=== PATIENT | female | born 1955 | race Caucasian/White ===

== ENCOUNTER 2017-07-20 19:08 | Inpatient (IN) | payer OTHER ==
[~2017-07-20] VITALS: Ht 165.1 cm; Wt 102.1 kg
--- NOTE | 2017-07-20 19:40 | EMERGENCY ROOM VISIT NOTE ---
History Report prepared by Lex: Medardo Rodriguez Under the Supervision of: Dr. Mal Vance M.D. First contact with patient: 19:19 Chief Complaint: ILLNESS Stated Complaint: POSSIBLE PHEUMONIA History of Present Illness The patient is a 62 year old white female with a past medical history of a knee replacement and regional dystrophy who presents to the ED with a cc of a worsening cough beginning three days ago. Pt was evaluated at [facility] earlier today and told she had pneumonia, per a chest x-ray. She received a breathing treatment but had to stop before it was over because she developed palpitations. Positive subjective fever, chills, palpitations. Negative being checked for flu, recorded fevers, taking blood thinners, and a history of smoking. Pt takes OxyContin, oxycodone, and gabapentin. [place] that causes palpitations and a cough. Source of History: patient Onset: three days ago Position: other (respiratory) Quality: other (cough) Timing: worsening Associated Symptoms: + fevers (subjective), + chills Note: Associated symptoms: palpitations Denies: reported fevers Review of Systems See HPI for pertinent positives and negatives. A total of ten systems were reviewed and were otherwise negative. Past Medical & Surgical Medical Problems: (1) Sepsis Family History Patient reports no known family medical history. Social History Smoking Status: Former Smoker Marital Status: Housing Status: lives with significant other Occupation Status: retired Current/Historical Medications Scheduled Aspirin (Aspirin Ec), 81 MG PO QAM Gabapentin (Neurontin), 300 MG PO BID Gabapentin (Gabapentin), 600 MG PO HS Oxycodone Hcl (Oxycontin), 60 MG PO TID Scheduled PRN Oxycodone Hcl (Oxycontin), 20 MG PO Q4 PRN for Pain Allergies Coded Allergies: Aminophylline (Verified Allergy, Unknown, hives, 07/20/17) per patient report Physical Exam Vital Signs Date Time Temp Pulse Resp B/P (MAP) Pulse Ox O2 Delivery O2 Flow Rate FiO2 07/20/17 21:34 138 20 108/42 94 Room Air 07/20/17 21:21 138 20 96/66 96 Room Air 07/20/17 21:15 147 24 113/64 94 Room Air 07/20/17 21:12 139 111/78 07/20/17 21:05 149 24 111/78 95 Room Air 07/20/17 21:01 160 118/66 07/20/17 21:00 140 20 111/65 96 Room Air 07/20/17 20:52 168 22 118/66 96 Room Air 07/20/17 20:49 167 24 90/72 95 Room Air 07/20/17 20:12 161 20 109/61 97 Room Air 07/20/17 19:44 169 07/20/17 19:40 93 Room Air 07/20/17 19:14 36.3 86 19 113/63 98 Room Air Physical Exam GENERAL: Awake, alert, well-appearing, NAD. Obese. HENT: Normocephalic, atraumatic. EYES: Normal conjunctiva. Sclera non-icteric. NECK: Supple. No nuchal rigidity. FROM. RESPIRATORY: Diffuse rhonchi throughout. NO wheezing, crackles CARDIAC: Tachy and irregular, no MRG ABDOMEN: Soft, NTND, BS+ MSK: No chest wall TTP, no LE edema NEURO: GCS 15, CN 2-12 intact, moves all 4s on command SKIN: No rash or jaundice noted. Medical Decision & Procedures ER Provider Diagnostic Interpretation: Radiology results as stated below per my review and radiologist interpretation: CHEST ONE VIEW PORTABLE HISTORY: 62 years-old Female EVALUATE RESPIRATORY DISTRESS.DYSPNEA acute respiratory distress with dyspnea COMPARISON: None available TECHNIQUE: Portable AP view of the chest FINDINGS: Patient is slightly rotated to the right. Cardiac silhouette is moderately enlarged. There is no pneumothorax, pleural effusion, focal airspace consolidation or overt pulmonary edema. Bones of the chest appear to be grossly intact. Degenerative changes are noted about the shoulders and spine. IMPRESSION: 1. No acute process of the chest. 2. Cardiomegaly without overt pulmonary edema. The above report was generated using voice recognition software. It may contain grammatical, syntax or spelling errors. Electronically signed by: Clemente Krueger M.D. 07/20/2017 8:12 PM Dictated Date/Time: 07/20/2017 8:11 PM Bedside Ultrasound per my interpretation: No pericardial effusion. IVC with mild respiratory collapsibility. Laboratory Results 07/20/17 19:50 Red Blood Count 5.07, Mean Corpuscular Volume 82.1, Mean Corpuscular Hemoglobin 27.2, Mean Corpuscular Hemoglobin Concent 33.2, Mean Platelet Volume 10.6, Neutrophils (%) (Auto) 71.5, Lymphocytes (%) (Auto) 14.0, Monocytes (%) (Auto) 14.3, Eosinophils (%) (Auto) 0.0, Basophils (%) (Auto) 0.0, Neutrophils # (Auto ) 2.91, Lymphocytes # (Auto) 0.57, Monocytes # (Auto) 0.58, Eosinophils # (Auto ) 0.00, Basophils # (Auto) 0.00 07/20/17 19:50 Test 07/20/17 19:50 07/20/17 20:40 07/20/17 21:35 White Blood Count 4.07 K/uL (4.8-10.8) Red Blood Count 5.07 M/uL (4.2-5.4) Hemoglobin 13.8 g/dL (12.0-16.0) Hematocrit 41.6 % (37-47) Mean Corpuscular Volume 82.1 fL (80-100) Mean Corpuscular Hemoglobin 27.2 pg (25-34) Mean Corpuscular Hemoglobin Concent 33.2 g/dl (32-36) Platelet Count 181 K/uL (130-400) Mean Platelet Volume 10.6 fL (7.4-10.4) Neutrophils (%) (Auto) 71.5 % Lymphocytes (%) (Auto) 14.0 % Monocytes (%) (Auto) 14.3 % Eosinophils (%) (Auto) 0.0 % Basophils (%) (Auto) 0.0 % Neutrophils # (Auto) 2.91 K/uL (1.4-6.5) Lymphocytes # (Auto) 0.57 K/uL (1.2-3.4) Monocytes # (Auto) 0.58 K/uL (0.11-0.59) Eosinophils # (Auto) 0.00 K/uL (0-0.5) Basophils # (Auto) 0.00 K/uL (0-0.2) RDW Standard Deviation 46.2 fL (36.4-46.3) RDW Coefficient of Variation 15.4 % (11.5-14.5) Immature Granulocyte % (Auto) 0.2 % Immature Granulocyte # (Auto) 0.01 K/uL (0.00-0.02) Prothrombin Time 10.3 SECONDS (9.0-12.0) Prothromb Time International Ratio 1.0 (0.9-1.1) Activated Partial Thromboplast Time 26.4 SECONDS (21.0-31.0) Partial Thromboplastin Ratio 1.0 Anion Gap 11.0 mmol/L (3-11) Est Creatinine Clear Calc Drug Dose 69.4 ml/min Estimated GFR () 71.5 Estimated GFR (Non- 61.7 BUN/Creatinine Ratio 12.5 (10-20) Calcium Level 8.8 mg/dl (8.5-10.1) Magnesium Level 2.0 mg/dl (1.8-2.4) Total Bilirubin 0.3 mg/dl (0.2-1) Aspartate Amino Transf (AST/SGOT) 23 U/L (15-37) Alanine Aminotransferase (ALT/SGPT) 20 U/L (12-78) Alkaline Phosphatase 78 U/L (45-117) Troponin I 0.142 ng/ml (0-0.045) Pro-B-Type Natriuretic Peptide 1235 pg/ml (0-900) Total Protein 7.4 gm/dl (6.4-8.2) Albumin 3.5 gm/dl (3.4-5.0) Globulin 3.9 gm/dl (2.5-4.0) Albumin/Globulin Ratio 0.9 (0.9-2) Procalcitonin < 0.05 ng/ml (0-0.5) Thyroid Stimulating Hormone (TSH) 3.680 uIu/ml (0.300-4.500) Urine Color DK YELLOW Urine Appearance TURBID (CLEAR) Urine pH 5.5 (4.5-7.5) Urine Specific Mentcle 1.015 (1.000-1.030) Urine Protein 2+ (NEG) Urine Glucose (UA) NEG (NEG) Urine Ketones 1+ (NEG) Urine Occult Blood TRACE (NEG) Urine Nitrite POS (NEG) Urine Bilirubin NEG (NEG) Urine Urobilinogen NEG (NEG) Urine Leukocyte Esterase SMALL (NEG) Urine WBC (Auto) 10-30 /hpf (0-5) Urine RBC (Auto) 5-10 /hpf (0-4) Urine Hyaline Casts (Auto) 5-10 /lpf (0-5) Urine Epithelial Cells (Auto) >30 /lpf (0-5) Urine Bacteria (Auto) 4+ (NEG) Urine Pathogenic Casts /lpf (0) Influenza Type A (RT-PCR) POS for Influ A (NEG) Influenza Type B (RT-PCR) Neg for Influ B (NEG) Laboratory results reviewed by me Medications Administered Medications (Trade) Dose Ordered Sig/Mercedes Route Start Time Stop Time Status Last Admin Dose Admin Ceftriaxone Sodium (Rocephin Inj) 1 gm NOW STAT IV 07/20/17 19:41 07/20/17 19:42 DC 07/20/17 20:10 1 GM Azithromycin (Zithromax Tab) 500 mg NOW ONCE PO 07/20/17 19:45 07/20/17 19:46 DC 07/20/17 20:11 500 MG Sodium Chloride 500 ml @ 999 mls/hr Q31M STAT IV 07/20/17 19:41 07/20/17 20:11 DC 07/20/17 20:11 999 MLS/HR Magnesium Oxide (Mag-Ox Tab) 800 mg ONE STAT PO 07/20/17 20:28 07/20/17 20:31 DC 07/20/17 20:50 800 MG Metoprolol Tartrate (Lopressor Iv) 5 mg NOW STAT IV 07/20/17 20:40 07/20/17 20:42 DC 07/20/17 21:01 5 MG Aspirin (Aspirin Chew) 324 mg NOW STAT PO 07/20/17 20:40 07/20/17 20:42 DC 07/20/17 20:50 324 MG Potassium Chloride (Klor-Con M10) 40 meq STK-MED ONCE .ROUTE 07/20/17 20:47 07/20/17 20:48 DC 07/20/17 20:50 40 MEQ Metoprolol Tartrate (Lopressor Iv) 5 mg NOW STAT IV 07/20/17 21:07 07/20/17 21:09 DC 07/20/17 21:12 5 MG Procedure Indication: tachycardia with HTN Written consent was obtained after the risks and benefits were explained, including but not limited to pain, thermal burn, allergic reaction, aspiration, airway obstruction, laryngospasm, infection, hypotension, and cardiorespiratory arrest. At this time, the risks of the procedure are less than the risks of NOT performing the procedure. A time out was taken and the correct patient and procedure identified. The patient was on 100% via NRB and end tidal CO2 monitoring prior to the procedure. Suction, airway equipment, medications, respiratory equipment, ACLS cart, and appropriate personnel were prepared prior to the initiation of the procedure. Sedation was achieved utilizing 15mg of etomidate. The biphasic defibrillator was set to 200 joules of energy and synched. After confirmation of sedation and "all clear" safety check the synchronized shock was delivered. This resulted in successful conversion of the dysrhythmia back into sinus rhythm. See nursing notes for dosages and times. There were no complications and the patient recovered uneventfully from the procedure. ECG Per My Interpretation Indication: SOB/dyspnea Rate (beats per minute): 193 Rhythm: atrial fibrillation (with RVR) Findings: other (Normal QRS, slight anterior depression noted. Normal axis.) ED Course 1930: The patient was evaluated in room C04. A complete history and physical exam was performed. 2056: Upon reexamination, the patient was resting comfortably. I performed a bedside ultrasound. Please refer to the diagnostic interpretations for findings. I discussed the test results and treatment plan with her. The patient will be evaluated for further management. 2109: I [facility] the [facility]'s [facility] will [facility] the patient for further management and care. 2141: The lead case manager informed me the patient was going [place] [facility] [place], but she has not been evaluated by them yet. The admission switched to the [facility] Hospitalist. 2154: I discussed the patient's case with Dr. Garrison, [facility] Hospitalist. The patient will be evaluated for further management and care. 2237: I discussed with Dr. Garrison again. We are going to try further treatment options. 2247: The patient is not responding to current treatment. She will be cardioverted. 2308: The patient was sedated and cardioverted. Please refer to the procedure note for further information. Medical Decision The patient is a 62 year old white female with a past medical history of a knee replacement and regional dystrophy who presents to the ED with a cc of a worsening cough beginning three days ago. Differential diagnosis: Etiologies such as infections, reactive airway disease, pneumonia, pneumothorax , COPD, CHF, cardiac ischemia, pulmonary embolism, musculoskeletal, gastrointestinal, as well as others were entertained. Patient was seen and evaluated the bedside. Patient presents after being seen at [facility] with concern for possible pneumonia. Patient of note did state that she did have some productive sputum as well as a cough. Patient on exam does have diffuse coarse breath sounds throughout. Patient is also tacky and regular. Patient does not look volume overloaded. Patient did have blood work completed, EKG, troponin, BNP, chest x-ray. Patient's chest x-ray shows cardiomegaly but without volume overload. Patient's BNP mildly elevated. Patient does have a positive troponin. Patient denies any true chest pains. This is likely rate related from her irregular rhythm. Patient did have mild hypokalemia so she was repleted with potassium and magnesium. EKG appears to be irregularly irregular likely in A. fib. Patient was given 3 doses of Lopressor as well as 1500 fluids. Patient did have a flu swab which was positive. I did discuss the patient with the hospitalist who did attempt to put her on a Cardizem drip. Patient's blood pressure has been fairly soft. The patient was moved to B1. 6 mg of adenosine was tried without improvement in her tachycardia. The decision was made to perform synchronized cardioversion. This was considered emergent as the patient did have low blood pressures. Patient was sedated with etomidate. Patient did have a subsequent 200 J biphasic shock delivered. The patient return to his sinus rhythm. The patient suffered no complication. The patient became awake and alert. The patient was feeling improved. Of note patient was heparinized prior to procedure. Patient was admitted to medicine. Medication Reconcilliation Current Medication List: was personally reviewed by me Blood Pressure Screening Patient's blood pressure: Normal blood pressure Blood pressure disposition: Did not require urgent referral Consults Time Called: 2105 Consulting Physician: Diego Zuniga Hospitalist Returned Call: 2109 I discussed the patient's case with Diego Zuniga Hospitalist. He will evaluate the patient for further management and care. Additional Consults: Time Called: 2141 Consulted Physician: Dr. Garrison [facility] Hospitalist Returned Call: 2154 Additional Comments: I discussed the patient's case with Dr. Garrison [facility] Hospitalist. The patient will be evaluated for further management and care. Impression Primary Impression: Atrial fibrillation with RVR Additional Impressions: Encounter for cardioversion procedure Hypokalemia Critical Care I have personally spent greater than 75 minutes of critical care time in the direct management of this patient. This includes bedside care, interpretation of diagnostic studies, and testing, discussion with consultants, patient, and family members, and other required patient management activities. This 75 minutes is in excess of all separately billable procedures. Scribe Attestation The scribe's documentation has been prepared under my direction and personally reviewed by me in its entirety. I confirm that the note above accurately reflects all work, treatment, procedures, and medical decision making performed by me. Departure Information Dispostion Being Evaluated By Hospitalist Referrals No Doctor, Assigned (PCP) Patient Instructions My [facility] Problem Qualifiers
[2017-07-20] MEDS ORDERED: SODIUM CHLORIDE 0.9% 500ML 500 ML IV STA (19:41)
[2017-07-20] MEDS ORDERED: CEFTRIAXONE SOD INJ 1 GM ADDVIAL IV STA (19:41)
[2017-07-20] MEDS ORDERED: AZITHROMYCIN 250 MG TAB PO ONE (19:45)
[2017-07-20 20:03] LABS: HEMATOCRIT 41.6 % (37-47); HEMOGLOBIN 13.8 g/dL (12.0-16.0); IG# 0.01 K/uL (0.00-0.02); LYMPH ABS # 0.57 K/uL (1.2-3.4); MEAN CELL VOLUME 82.1 fL (80-100); MEAN CORPUSCULAR HEMOGLOBIN 27.2 pg (25-34); MEAN CORPUSCULAR HGB CONC 33.2 g/dl (32-36); MEAN PLATELET VOLUME 10.6 fL (7.4-10.4); MONO % 14.3 %; MONO ABS # 0.58 K/uL (0.11-0.59); NEUT % 71.5 %; NEUT ABS # 2.91 K/uL (1.4-6.5); PLATELET COUNT 181 K/uL (130-400); RED CELL DISTRIBUTION WIDTH CV 15.4 % (11.5-14.5); RED CELL DISTRIBUTION WIDTH SD 46.2 fL (36.4-46.3); WHITE BLOOD COUNT 4.07 K/uL (4.8-10.8)
[2017-07-20 20:14] LABS: PTT PATIENT 26.4 SECONDS (21.0-31.0)
--- NOTE | 2017-07-20 20:14 | DIAGNOSTIC IMAGING REPORT ---
CHEST ONE VIEW PORTABLE HISTORY: 62 years-old Female EVALUATE RESPIRATORY DISTRESS.DYSPNEA acute respiratory distress with dyspnea COMPARISON: None available TECHNIQUE: Portable AP view of the chest FINDINGS: Patient is slightly rotated to the right. Cardiac silhouette is moderately enlarged. There is no pneumothorax, pleural effusion, focal airspace consolidation or overt pulmonary edema. Bones of the chest appear to be grossly intact. Degenerative changes are noted about the shoulders and spine. IMPRESSION: 1. No acute process of the chest. 2. Cardiomegaly without overt pulmonary edema. The above report was generated using voice recognition software. It may contain grammatical, syntax or spelling errors. Electronically signed by: Clemente Krueger M.D. 07/20/2017 8:12 PM Dictated Date/Time: 07/20/2017 8:11 PM
[2017-07-20 20:21] LABS: ALBUMIN 3.5 gm/dl (3.4-5.0); CALCIUM 8.8 mg/dl (8.5-10.1); CREATININE 0.97 mg/dl (0.60-1.20); POTASSIUM 3.3 mmol/L (3.5-5.1)
[2017-07-20 20:28] LABS: TOTAL PROTEIN 7.4 gm/dl (6.4-8.2)
[2017-07-20] MEDS ORDERED: MAGNESIUM OXIDE 400 MG TAB PO STA (20:28)
[2017-07-20] MEDS ORDERED: POTASSIUM CHLORIDE 20 MEQ TABCR PO STA (20:28)
[2017-07-20] MEDS ORDERED: ASPIRIN 324 MG CHEW PO STA (20:40)
[2017-07-20] MEDS ORDERED: METOPROLOL TARTRATE 1 MG/ML VIAL IV STA ×2 (20:40→21:07)
[2017-07-20] MEDS ORDERED: POTASSIUM CHLORIDE 10 MEQ TABCR ONE (20:47)
[2017-07-20] MEDS ORDERED: OXYC60TA8 PO (21:20)
[2017-07-20] MEDS ORDERED: OXYC20TA50 PO (21:21)
[2017-07-20] MEDS ORDERED: NRN300 PO (21:21)
[2017-07-20] MEDS ORDERED: ASPI81TA28 PO (21:21)
[2017-07-20] MEDS ORDERED: GABA-113 PO (21:21)
[2017-07-20] MEDS ORDERED: NSS + 20MEQ KCL 1000ML 1,000 ML IV STA (21:23)
[2017-07-20] MEDS ORDERED: DILTIAZEM BOLUS / DRIP IV STA (21:48)
[2017-07-20] MEDS ORDERED: MoRPHine SULFATE 2 MG/ML CARP IV PRN (22:00)
[2017-07-20] MEDS ORDERED: ACETAMINOPHEN 325 MG TAB PO PRN (22:00)
[2017-07-20] MEDS ORDERED: ZOLPIDEM TARTRATE 5 MG TAB PO PRN (22:00)
[2017-07-20] MEDS ORDERED: MAGNESIUM HYDROXIDE SUSP 30 ML UDC PO PRN (22:00)
[2017-07-20] MEDS ORDERED: MAGNESIUM SULFATE 1GM / D5W 1 GM in PREMIXED IN D5W 100 ML IV SCH (22:00)
[2017-07-20] MEDS ORDERED: POLYETHYLENE (MIRALAX) 17 GM PACK PO PRN (22:00)
[2017-07-20] MEDS ORDERED: ALUMINUM/MAGNESIUM/SIMETH (MAALOX MAX) 30 ML UDC PO PRN (22:00)
[2017-07-20] MEDS ORDERED: ONDANSETRON INJ 2 MG/ML 2 ML VIAL IV PRN (22:00)
[2017-07-20] MEDS ORDERED: DILTIAZEM HCL INJ 125 MG in DEXTROSE 5% 100ML IV PRN (22:15)
[2017-07-20 22:31] LABS: INFLUENZA B PCR Neg for Influ B (NEG)
[2017-07-20] MEDS ORDERED: HEPARIN 25000 UNIT/500 ML D5W ONE (22:31)
[2017-07-20] MEDS ORDERED: HEPARIN SOD 5000 UNIT/0.5 ML CARP ONE (22:31)
[2017-07-20] MEDS ORDERED: MAGNESIUM SULFATE 1GM / D5W 1 GM BAG ONE (22:31)
[2017-07-20 22:34] LABS: INFLUENZA A PCR POS for Influ A (NEG)
[2017-07-20] MEDS ORDERED: SODIUM CHLORIDE 0.9% 500ML 500 ML IV SCH (22:45)
[2017-07-20] MEDS ORDERED: ADENOSINE IV SOLN 3 MG/ML 2 ML VIAL IV STA (22:46)
[2017-07-20] MEDS ORDERED: ADENOSINE IV SOLN 3 MG/ML 2 ML VIAL ONE (22:50)
[2017-07-20] MEDS ORDERED: ETOMIDATE 2 MG/ML 20 ML VIAL IV ONE (22:57)
[2017-07-20] MEDS ORDERED: OPTIRAY 320 IV PRN (23:00)
[2017-07-20 23:08] VITALS: BP 137/82; PULSE 54; O2SAT 100; O2SAT 96
--- NOTE | 2017-07-20 23:13 | History and Physical ---
History & Physical Date & Time of Service: Jul 20, 2017 at 22:25 Chief Complaint: Possible [place] Primary Care Physician: No Doctor, Assigned History of Present Illness Source: patient 62 y/o F Hx AF, SVT, complex regional pain syndrome. The pt has had a productive cough for 3 days and presented to an urgent care center. She was told she may have a pneumonia and was provided with an Albuterol neb treatment. [place] through the treatment she developed palpitations. She was subsequently sent to the ER. On arrival her HR was in the 170s. An EKG revealed an indeterminate tachyarrhythmia. She received 3 doses of IV Metoprolol which slowed her heart rate minimally. She then developed hypotension although she was largely asymptomatic throughout. A dose of adenosine was provided which did not effect her rhythm. As she remained tachycardic and intermittently hypotensive, cardioversion was indicated. She received sedation followed by 200j which and converted to a sinus rhythm at a rate of 60. She remained stable following cardioversion. In the interim labs returned revealing a (+) influenza and a marginally elevated troponin. She denies CP and her SOB has been mild. The pt states that she had a similar episode while living in [place] a few years ago. she converted to a sinus rhythm spontaneously at the time. She states she has palpitations occasionally and attributes them to fracking activity taking place near her house. Past Medical/Surgical History 1) Atrial fib and SVTs 2) Complex regional pain syndrome following L TKA Surgical L TKA Family History Patient reports no known family medical history. Noncontributory Social History Does not smoke - occasional beer Smoking Status: Former Smoker Marital Status: Occupational Status: retired Allergies Coded Allergies: Aminophylline (Verified Allergy, Unknown, hives, 07/20/17) per patient report Home Medications Scheduled Aspirin (Aspirin Ec), 81 MG PO QAM Gabapentin (Neurontin), 300 MG PO BID Gabapentin (Gabapentin), 600 MG PO HS Oxycodone Hcl (Oxycontin), 60 MG PO TID Scheduled PRN Oxycodone Hcl (Oxycontin), 20 MG PO Q4 PRN for Pain Review of Systems Constitutional: + weakness, No fever, No chills, No sweats Eyes: No worsening of vision ENT: No hearing loss, No unusual epistaxis, No nasal symptoms Respiratory: + cough, + sputum, + shortness of breath Cardiovascular: + palpitations, No chest pain, No orthopnea Abdomen: No pain, No nausea, No vomiting Musculoskeletal: No joint pain Genitourinary - Female: No dysuria, No urinary frequency, No urinary urgency Neurologic: No memory loss, No paralysis, No weakness Psychiatric: No depression symptoms Endocrine: No fatigue Hematologic / Lymphatic: No abnormal bleeding/bruising Integumentary: No rash Allergic / Immunologic: No environmental allergies Physical Exam Vital Signs Date Time Temp Pulse Resp B/P (MAP) Pulse Ox O2 Delivery O2 Flow Rate FiO2 07/20/17 21:34 138 20 108/42 94 Room Air 07/20/17 21:21 138 20 96/66 96 Room Air 07/20/17 21:15 147 24 113/64 94 Room Air 07/20/17 21:12 139 111/78 07/20/17 21:05 149 24 111/78 95 Room Air 07/20/17 21:01 160 118/66 07/20/17 21:00 140 20 111/65 96 Room Air 07/20/17 20:52 168 22 118/66 96 Room Air 07/20/17 20:49 167 24 90/72 95 Room Air 07/20/17 20:12 161 20 109/61 97 Room Air 07/20/17 19:44 169 07/20/17 19:40 93 Room Air 07/20/17 19:14 36.3 86 19 113/63 98 Room Air General Appearance: WD/WN, no apparent distress, + pertinent finding (Pleasant , overweight, middle-aged female - no distress) Head: normocephalic Eyes: normal inspection ENT: normal ENT inspection, pharynx normal Neck: supple, no JVD Respiratory/Chest: chest non-tender, lungs clear, normal breath sounds, + pertinent finding (coughing during exam ) Cardiovascular: no JVD, + tachycardia, + irregularly irregular Abdomen/GI: normal bowel sounds, non tender, soft Back: normal inspection, no CVA tenderness Extremities/Musculoskelatal: normal inspection, no calf tenderness, normal capillary refill 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/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 as tested, no motor/sensory deficits, alert, oriented x 3 Skin: normal color Diagnostics Laboratory Results Results Past 24 Hours Test 07/20/17 19:50 07/20/17 20:40 07/20/17 21:35 Range/Units White Blood Count 4.07 4.8-10.8 K/uL Red Blood Count 5.07 4.2-5.4 M/uL Hemoglobin 13.8 12.0-16.0 g/dL Hematocrit 41.6 37-47 % Mean Corpuscular Volume 82.1 80-100 fL Mean Corpuscular Hemoglobin 27.2 25-34 pg Mean Corpuscular Hemoglobin Concent 33.2 32-36 g/dl Platelet Count 181 130-400 K/uL Mean Platelet Volume 10.6 7.4-10.4 fL Neutrophils (%) (Auto) 71.5 % Lymphocytes (%) (Auto) 14.0 % Monocytes (%) (Auto) 14.3 % Eosinophils (%) (Auto) 0.0 % Basophils (%) (Auto) 0.0 % Neutrophils # (Auto) 2.91 1.4-6.5 K/uL Lymphocytes # (Auto) 0.57 1.2-3.4 K/uL Monocytes # (Auto) 0.58 0.11-0.59 K/uL Eosinophils # (Auto) 0.00 0-0.5 K/uL Basophils # (Auto) 0.00 0-0.2 K/uL RDW Standard Deviation 46.2 36.4-46.3 fL RDW Coefficient of Variation 15.4 11.5-14.5 % Immature Granulocyte % (Auto) 0.2 % Immature Granulocyte # (Auto) 0.01 0.00-0.02 K/uL Prothrombin Time 10.3 9.0-12.0 SECONDS Prothromb Time International Ratio 1.0 0.9-1.1 Activated Partial Thromboplast Time 26.4 21.0-31.0 SECONDS Partial Thromboplastin Ratio 1.0 Sodium Level 139 136-145 mmol/L Potassium Level 3.3 3.5-5.1 mmol/L Chloride Level 104 98-107 mmol/L Carbon Dioxide Level 24 21-32 mmol/L Anion Gap 11.0 3-11 mmol/L Blood Urea Nitrogen 12 7-18 mg/dl Creatinine 0.97 0.60-1.20 mg/dl Est Creatinine Clear Calc Drug Dose 69.4 ml/min Estimated GFR () 71.5 Estimated GFR (Non- 61.7 BUN/Creatinine Ratio 12.5 10-20 Random Glucose 114 70-99 mg/dl Calcium Level 8.8 8.5-10.1 mg/dl Magnesium Level 2.0 1.8-2.4 mg/dl Total Bilirubin 0.3 0.2-1 mg/dl Aspartate Amino Transf (AST/SGOT) 23 15-37 U/L Alanine Aminotransferase (ALT/SGPT) 20 12-78 U/L Alkaline Phosphatase 78 45-117 U/L Troponin I 0.142 0-0.045 ng/ml Pro-B-Type Natriuretic Peptide 1235 0-900 pg/ml Total Protein 7.4 6.4-8.2 gm/dl Albumin 3.5 3.4-5.0 gm/dl Globulin 3.9 2.5-4.0 gm/dl Albumin/Globulin Ratio 0.9 0.9-2 Procalcitonin < 0.05 0-0.5 ng/ml Thyroid Stimulating Hormone (TSH) 3.680 0.300-4.500 uIu/ml Urine Color DK YELLOW Urine Appearance TURBID CLEAR Urine pH 5.5 4.5-7.5 Urine Specific [place] 1.015 1.000-1.030 Urine Protein 2+ NEG Urine Glucose (UA) NEG NEG Urine Ketones 1+ NEG Urine Occult Blood TRACE NEG Urine Nitrite POS NEG Urine Bilirubin NEG NEG Urine Urobilinogen NEG NEG Urine Leukocyte Esterase SMALL NEG Urine WBC (Auto) 10-30 0-5 /hpf Urine RBC (Auto) 5-10 0-4 /hpf Urine Hyaline Casts (Auto) 5-10 0-5 /lpf Urine Epithelial Cells (Auto) >30 0-5 /lpf Urine Bacteria (Auto) 4+ NEG Urine Pathogenic Casts 0 /lpf Microbiology Results 07/20/17 Urine Culture, Received Pending Diagnostic Radiology CXR is clear EKG A flutter vs SVT - rate 170 Impression Assessment and Plan 62 y/o F Hx AF, SVT, complex regional pain syndrome. The pt has had a productive cough for 3 days and presented to an urgent care center. She was told she may have a pneumonia and was provided with an Albuterol neb treatment. [place] through the treatment she developed palpitations. She was subsequently sent to the ER. On arrival her HR was in the 170s. An EKG revealed an indeterminate tachyarrhythmia. She received 3 doses of IV Metoprolol which slowed her heart rate minimally. She then developed hypotension although she was largely asymptomatic throughout. A dose of adenosine was provided which did not effect her rhythm. As she remained tachycardic and intermittently hypotensive, cardioversion was indicated. She received sedation followed by 200j which and converted to a sinus rhythm at a rate of 60. She remained stable following cardioversion. In the interim labs returned revealing a (+) influenza and a marginally elevated troponin. 1) Tachyarrhythmia - most likely A flutter - converted to a sinus rhythm - she is placed on full dose Heparin. An echo and cardiology consult are pending. She technically has a low STEFFI score and has indicated that she does not want to take anticoagulants going forward regardless. 2) Elevated trop - no CP - likely related to high HR and resultant demand mismatch - trop will be trended - she is anticoagualted and an echo is pending to assess for WMAs 3) Influenza - placed on isolation - Tamiflu provided. 4) A CXR does not show any infiltrates - due to her persistent flutter and cough she will be sent for a CTA to assess for PE or PNM. 5) Complex regional pain syndrome - will remain on RENATA and her prescribed narcotic dose. 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
[2017-07-21] VITALS (8 sets, daily range): BP systolic 103–138; BP diastolic 51–69; PULSE 58–78; TEMP 36.5–37.2; O2SAT 94–98; Ht 165.1 cm; Wt 102.1 kg
[2017-07-21] MEDS: D5NSS + 20MEQ KCL 1,000 ML IV SCH ×2 (02:21→12:01)
[2017-07-21 05:57] LABS: PTT PATIENT 57.4 SECONDS (21.0-31.0)
--- NOTE | 2017-07-21 07:10 | DIAGNOSTIC IMAGING REPORT ---
(CHEST FOR PE) ANGIO WITH CLINICAL HISTORY: 62 years-old Female presenting with Rule out pe, possible pneumonia. TECHNIQUE: Multidetector CT angiography of the chest was performed after administration of intravenous contrast. 3-D volumetric and/or maximum intensity projection (MIP) images were subsequently reconstructed for review. IV contrast: 103 mL of Optiray 320. A dose lowering technique was used consistent with the principles of ALARA (as low as reasonably achievable). COMPARISON: Chest x-ray performed the previous day. CT DOSE (mGy.cm): The estimated cumulative dose is 687.81 mGy.cm. FINDINGS: Steel Sash Erector topogram: Unremarkable. Pulmonary vasculature: The study is suboptimal for the assessment of the pulmonary vascular tree secondary to respiratory motion artifact. Allowing for limited image quality, no central filling defect to suggest pulmonary embolus. Main pulmonary artery enlarged measuring nearly 3.5 cm in transverse dimension. No flattening of the interventricular septum. No intracardiac filling defect. Reflux of contrast into the intrahepatic IVC. Remaining chest: On soft tissue windows, normal thyroid and thoracic inlet. Few small hilar lymph nodes suggested bilaterally. Atherosclerosis of the aorta. Mild multichamber enlargement of the heart. Trace aortic valve calcification. No pericardial or pleural effusion. Mild esophageal wall thickening in the distal portion, although this may be postsurgical change given the presence of extensive surgical material at the gastroesophageal junction. This may represent postsurgical changes of Celestino procedure. On lung windows, minimal patchy groundglass opacity in all 5 lobes. Extensive bronchial wall thickening with multifocal segmental and subsegmental bronchial debris. There is also debris in the bronchus intermedius and trachea. Solid 4 mm nodule in the right middle lobe (series 4 image 91). Solid 3 mm nodule immediately superior in the right middle lobe (series 4 image 104). Solid subpleural 3 mm nodule in the posterior lateral right lower lobe (series 4 image 112). On bone windows, degenerative changes of the spine. Multiple anchors noted in the right humeral head. IMPRESSION: 1. Allowing for suboptimal image quality, no evidence of pulmonary embolus. 2. Patchy groundglass opacity could relate to multifocal bronchial wall thickening and bronchial debris. This could be seen in the setting of aspiration with aspiration pneumonitis or bronchitis with patchy air trapping. Correlate clinically. 3. Multiple solid pulmonary nodules measuring up to 4 mm. Follow-up per Tommy Society 2017 recommendations below. Please refer to below summary of Fleischner Society 2017 recommendations for follow-up of incidental CT nodules (H Eusebia et al. Guidelines for management of incidental pulmonary nodules detected on CT images: From the Fleischner Society 2017. Radiology 2017; 284: 228-243.) SOLID NODULES Single nodule; size < 6 mm * Low risk patients: No routine follow-up * High risk patients: Optional CT at 12 months Single nodule; size 6-8 mm * Low risk patients: CT at 6-12 months, then consider CT at 18-24 months * High risk patients: CT at 6-12 months, then at 18-24 months Single nodule; size > 8 mm * Either low or high risk patients: Considered CT at 3 months, PET/CT, or tissue sampling Multiple nodules; size < 6 mm * Low risk patients: No routine follow up * High risk patients: Optional CT at 12 months Multiple nodules; size 6-8 mm * Low risk patients: CT at 3-6 months, then consider CT at 18-24 months * High risk patients: CT at 3-6 months, then at 18-24 months Multiple nodules; size > 8 mm * Low risk patients: CT at 3-6 months, then consider at 18-24 months * High risk patients: CT at 3-6 months, then at 18-24 months Note: These guidelines apply to incidental nodules. These guidelines do not apply to patients younger than 35 years, immunocompromised patients, or patients with cancer. * Low risk patients: Minimal or absent history of smoking and/or other known risk factors * High risk patients: History of smoking, exposure to other carcinogens, emphysema, fibrosis, upper lobe location, family history of lung cancer, etc. * If a nodule up to 8 mm is partly solid or is ground glass, further follow-up is required after 24 months to exclude possible slow growing adenocarcinoma. SUBSOLID NODULES Single ground-glass nodule * Nodule size < 6 mm: No routine follow-up * Nodule size > or = 6 mm: CT at 6-12 months to confirm persistence, then CT every 2 years until 5 years Single part-solid nodule * Nodule size < 6 mm: No routine follow-up * Nodules size > or = 6 mm: CT at 3-6 months to confirm persistence. If unchanged and solid component remains < 6 mm, annual CT should be performed for 5 years Multiple nodules * Nodule size < 6 mm: CT at 3-6 months. If stable, consider CT at 2 and 4 years. * Nodules size > or = 6 mm: CT at 3-6 months. Subsequent management based on the most suspicious nodule(s) Electronically signed by: Norm Hyde M.D. 07/21/2017 7:09 AM Dictated Date/Time: 07/21/2017 6:58 AM
[2017-07-21] MEDS: OXYCODONE HCL 20 MG TABCR (OXYCONTIN) PO SCH ×3 (08:05→20:33)
[2017-07-21] MEDS: ASPIRIN 81 MG ECTAB PO SCH (08:05)
[2017-07-21] MEDS: GABAPENTIN 300 MG CAP PO SCH ×3 (08:05→20:34)
[2017-07-21] MEDS: OSELTAMIVIR PHOSPHATE 75 MG CAP PO SCH ×2 (08:05→20:34)
--- NOTE | 2017-07-21 08:26 | Family Medicine Progress Note ---
Progress Note Date of Service Jul 21, 2017. Subjective Pt evaluation today including: conversation w/ patient, physical exam, chart review, lab review, review of studies, conversation w/ senior sustainability consultant, review of inpatient medication list Patient feeling better since cardioversion in ED yesterday. She denies any acute overnight event. She is breathing comfortably on room air, and has been ambulating to the bathroom without dyspnea. She continues to have coughing fits and she is unable to expectorate. She otherwise denies fevers/chills, headaches , CP, palpitations, abdominal pain, lower extremity swelling or rashes. She has been tolerating diet without nausea or vomiting, and voiding and stooling appropriately. ROS is unremarkable except as noted above. Objective Vital Signs Date Time Temp Pulse Resp B/P (MAP) Pulse Ox O2 Delivery O2 Flow Rate FiO2 07/21/17 05:42 36.6 59 18 96 Room Air 07/21/17 05:38 103/57 (72) 07/21/17 04:00 Room Air 07/21/17 00:54 37.2 61 117/51 97 Nasal Cannula 2.0 07/21/17 00:27 61 15 100 07/21/17 00:26 86/65 07/21/17 00:22 63 21 116/57 96 07/21/17 00:17 59 14 115/68 97 07/21/17 00:12 61 18 94 07/21/17 00:11 123/68 07/21/17 00:07 62 15 107/62 97 07/21/17 00:02 61 18 93 07/21/17 00:01 111/65 07/20/17 23:57 65 19 117/65 93 07/20/17 23:52 65 22 109/41 95 07/20/17 23:47 63 18 93 07/20/17 23:42 115/59 07/20/17 23:40 62 16 97 07/20/17 23:37 117/62 07/20/17 23:35 63 19 98 07/20/17 23:32 118/65 07/20/17 23:30 61 23 98 07/20/17 23:27 119/52 07/20/17 23:25 60 16 99 07/20/17 23:21 119/54 07/20/17 23:20 60 14 99 3/2/18 23:17 108/65 07/20/17 23:15 60 24 100 07/20/17 23:12 139/76 07/20/17 23:10 55 22 100 07/20/17 23:08 54 20 137/82 96 Room Air 07/20/17 23:08 137/82 07/20/17 23:07 137/66 07/20/17 23:05 97 10 100 07/20/17 23:02 129/72 07/20/17 23:00 97 11 100 07/20/17 22:40 161 22 102/64 95 Room Air 07/20/17 22:31 129 22 92/52 95 Room Air 07/20/17 22:15 143 20 76/56 96 Room Air 07/20/17 22:09 147 16 84/52 96 Room Air 07/20/17 21:34 138 20 108/42 94 Room Air 07/20/17 21:21 138 20 96/66 96 Room Air 07/20/17 21:15 147 24 113/64 94 Room Air 07/20/17 21:12 139 111/78 07/20/17 21:05 149 24 111/78 95 Room Air 07/20/17 21:01 160 118/66 07/20/17 21:00 140 20 111/65 96 Room Air 07/20/17 20:52 168 22 118/66 96 Room Air 07/20/17 20:49 167 24 90/72 95 Room Air 07/20/17 20:12 161 20 109/61 97 Room Air 07/20/17 19:44 169 07/20/17 19:40 93 Room Air 07/20/17 19:14 36.3 86 19 113/63 98 Room Air Physical Exam General Appearance: WD/WN, no apparent distress Eyes: normal inspection ENT: hearing grossly normal Neck: supple, no adenopathy Respiratory/Chest: no accessory muscle use, + crackles, + rales, + wheezing Cardiovascular: regular rate, rhythm, no edema, no murmur Abdomen: normal bowel sounds, non tender, soft Extremities: no pedal edema, no calf tenderness Neurologic/Psychiatric: alert, normal mood/affect, oriented x 3 Skin: normal color, warm/dry, no rash Laboratory Results Results Past 24 Hours Test 07/20/17 19:50 07/20/17 20:40 07/20/17 21:35 07/21/17 05:28 Range/Units White Blood Count 4.07 4.8-10.8 K/uL Red Blood Count 5.07 4.2-5.4 M/uL Hemoglobin 13.8 12.0-16.0 g/dL Hematocrit 41.6 37-47 % Mean Corpuscular Volume 82.1 80-100 fL Mean Corpuscular Hemoglobin 27.2 25-34 pg Mean Corpuscular Hemoglobin Concent 33.2 32-36 g/dl Platelet Count 181 130-400 K/uL Mean Platelet Volume 10.6 7.4-10.4 fL Neutrophils (%) (Auto) 71.5 % Lymphocytes (%) (Auto) 14.0 % Monocytes (%) (Auto) 14.3 % Eosinophils (%) (Auto) 0.0 % Basophils (%) (Auto) 0.0 % Neutrophils # (Auto) 2.91 1.4-6.5 K/uL Lymphocytes # (Auto) 0.57 1.2-3.4 K/uL Monocytes # (Auto) 0.58 0.11-0.59 K/uL Eosinophils # (Auto) 0.00 0-0.5 K/uL Basophils # (Auto) 0.00 0-0.2 K/uL RDW Standard Deviation 46.2 36.4-46.3 fL RDW Coefficient of Variation 15.4 11.5-14.5 % Immature Granulocyte % (Auto) 0.2 % Immature Granulocyte # (Auto) 0.01 0.00-0.02 K/uL Prothrombin Time 10.3 9.0-12.0 SECONDS Prothromb Time International Ratio 1.0 0.9-1.1 Activated Partial Thromboplast Time 26.4 57.4 21.0-31.0 SECONDS Partial Thromboplastin Ratio 1.0 2.2 Sodium Level 139 136-145 mmol/L Potassium Level 3.3 3.5-5.1 mmol/L Chloride Level 104 98-107 mmol/L Carbon Dioxide Level 24 21-32 mmol/L Anion Gap 11.0 3-11 mmol/L Blood Urea Nitrogen 12 7-18 mg/dl Creatinine 0.97 0.60-1.20 mg/dl Est Creatinine Clear Calc Drug Dose 69.4 ml/min Estimated GFR () 71.5 Estimated GFR (Non- 61.7 BUN/Creatinine Ratio 12.5 10-20 Random Glucose 114 70-99 mg/dl Calcium Level 8.8 8.5-10.1 mg/dl Magnesium Level 2.0 1.8-2.4 mg/dl Total Bilirubin 0.3 0.2-1 mg/dl Aspartate Amino Transf (AST/SGOT) 23 15-37 U/L Alanine Aminotransferase (ALT/SGPT) 20 12-78 U/L Alkaline Phosphatase 78 45-117 U/L Troponin I 0.142 0-0.045 ng/ml Pro-B-Type Natriuretic Peptide 1235 0-900 pg/ml Total Protein 7.4 6.4-8.2 gm/dl Albumin 3.5 3.4-5.0 gm/dl Globulin 3.9 2.5-4.0 gm/dl Albumin/Globulin Ratio 0.9 0.9-2 Procalcitonin < 0.05 0-0.5 ng/ml Thyroid Stimulating Hormone (TSH) 3.680 0.300-4.500 uIu/ml Urine Color DK YELLOW Urine Appearance TURBID CLEAR Urine pH 5.5 4.5-7.5 Urine Specific [place] 1.015 1.000-1.030 Urine Protein 2+ NEG Urine Glucose (UA) NEG NEG Urine Ketones 1+ NEG Urine Occult Blood TRACE NEG Urine Nitrite POS NEG Urine Bilirubin NEG NEG Urine Urobilinogen NEG NEG Urine Leukocyte Esterase SMALL NEG Urine WBC (Auto) 10-30 0-5 /hpf Urine RBC (Auto) 5-10 0-4 /hpf Urine Hyaline Casts (Auto) 5-10 0-5 /lpf Urine Epithelial Cells (Auto) >30 0-5 /lpf Urine Bacteria (Auto) 4+ NEG Urine Pathogenic Casts 0 /lpf Influenza Type A (RT-PCR) POS for Influ A NEG Influenza Type B (RT-PCR) Neg for Influ B NEG Test 07/21/17 08:45 07/21/17 15:45 Range/Units White Blood Count 3.41 4.8-10.8 K/uL Red Blood Count 4.67 4.2-5.4 M/uL Hemoglobin 12.8 12.0-16.0 g/dL Hematocrit 38.7 37-47 % Mean Corpuscular Volume 82.9 80-100 fL Mean Corpuscular Hemoglobin 27.4 25-34 pg Mean Corpuscular Hemoglobin Concent 33.1 32-36 g/dl Platelet Count 178 130-400 K/uL Mean Platelet Volume 10.6 7.4-10.4 fL Neutrophils (%) (Auto) 57.1 % Lymphocytes (%) (Auto) 31.7 % Monocytes (%) (Auto) 10.3 % Eosinophils (%) (Auto) 0.3 % Basophils (%) (Auto) 0.3 % Neutrophils # (Auto) 1.95 1.4-6.5 K/uL Lymphocytes # (Auto) 1.08 1.2-3.4 K/uL Monocytes # (Auto) 0.35 0.11-0.59 K/uL Eosinophils # (Auto) 0.01 0-0.5 K/uL Basophils # (Auto) 0.01 0-0.2 K/uL RDW Standard Deviation 47.3 36.4-46.3 fL RDW Coefficient of Variation 15.7 11.5-14.5 % Immature Granulocyte % (Auto) 0.3 % Immature Granulocyte # (Auto) 0.01 0.00-0.02 K/uL Sodium Level 140 136-145 mmol/L Potassium Level 3.3 3.5-5.1 mmol/L Chloride Level 108 98-107 mmol/L Carbon Dioxide Level 24 21-32 mmol/L Anion Gap 8.0 3-11 mmol/L Blood Urea Nitrogen 14 7-18 mg/dl Creatinine 0.73 0.60-1.20 mg/dl Est Creatinine Clear Calc Drug Dose 92.6 ml/min Estimated GFR () 100.9 Estimated GFR (Non- 87.0 BUN/Creatinine Ratio 19.3 10-20 Random Glucose 109 70-99 mg/dl Calcium Level 8.3 8.5-10.1 mg/dl Troponin I 0.704 0-0.045 ng/ml Microbiology Results 07/20/17 Urine Culture - Preliminary, Resulted Gram Negative Bacilli Enterococcus Species Assessment and Plan 62 y/o F Hx AF, SVT, complex regional pain syndrome presented to ED with palpitations after use of albuterol nebulizer and found to have a tachyarrhythmia in the ED with HR 170. No resolutions was achieved with 3 doses of IV Metoprolol or 18mg adenosine. Emergent cardioversion with 200j was performed when she became asymptomatically hypotensive, after which she converted to normal sinus rhythm with HR 60, and remained stable. She was also found to be positive with influenza A Tachyarrhythmia - resolved. Most likely A flutter - converted to a sinus rhythm. Cardiology consulted, recs appreciated. CTA negative for PE. - Continue heparin drip. Patient has a low STEFFI score and has indicated that she does not want to take anticoagulants going forward regardless. - Avoid albuterol if possible - Cardiology recommended EP consult Elevated troponin - Patient asymptomatic, elevated troponin no CP - likely related to high HR and resultant demand mismatch - Continue serial troponin until down trending - Trace echo report to rule out wall motion abnormalities - Continue anticoagulation in interim, as above Influenza A - CXR and CTA negative for infiltrates. - Continue Tamiflu - Droplet precautions - Flutter valve and cough lozenges ordered - Consideration for Xopenex if patient dyspneic Urinary tract infection - patient asymptomatic. - UA positive for ketones, leukocytes, nitrates, blood - UCx growing gram negative bacilli and enterococcus - Started ceftriaxone - day 1 Hypokalemia - K+ 3.3 today - Will supplement and trend BMP Complex regional pain syndrome - Continue home gabapentin and oxycodone regimen VTE ppx - Heparin Full code Continued [facility] stay due to: multiple IV medications needed Discharge planning: home Resident Tracking Resident Involvement: Resident Care Provided Care Provided: Adult Hospital Medicine Assessment/Plan Resident Physician Supervision Note: I was present with Dr. Parker during the history and exam. I discussed the case with the resident and agree with the findings and plan as documented in the note. Any exceptions or clarifications are listed here. Pt resting comfortably in bed complaining of persistent cough which has improved. Fatigue is present but lessened since sinus. At present, would avoid albuterol as it initiated her arrhythmia, but could use xopenex carefully if needed. Cardiology consultation aware and rec'd EP consultation for further evaluation of issue to augment medical management.
[2017-07-21 09:00] LABS: BASO % 0.3 %; BASO ABS # 0.01 K/uL (0-0.2); EOS % 0.3 %; EOS ABS # 0.01 K/uL (0-0.5); HEMATOCRIT 38.7 % (37-47); HEMOGLOBIN 12.8 g/dL (12.0-16.0); IG# 0.01 K/uL (0.00-0.02); LYMPH % 31.7 %; LYMPH ABS # 1.08 K/uL (1.2-3.4); MEAN CELL VOLUME 82.9 fL (80-100); MEAN CORPUSCULAR HEMOGLOBIN 27.4 pg (25-34); MEAN CORPUSCULAR HGB CONC 33.1 g/dl (32-36); MEAN PLATELET VOLUME 10.6 fL (7.4-10.4); MONO % 10.3 %; MONO ABS # 0.35 K/uL (0.11-0.59); NEUT % 57.1 %; NEUT ABS # 1.95 K/uL (1.4-6.5); PLATELET COUNT 178 K/uL (130-400); RED CELL DISTRIBUTION WIDTH CV 15.7 % (11.5-14.5); RED CELL DISTRIBUTION WIDTH SD 47.3 fL (36.4-46.3); WHITE BLOOD COUNT 3.41 K/uL (4.8-10.8)
[2017-07-21 09:36] LABS: CALCIUM 8.3 mg/dl (8.5-10.1); CREATININE 0.73 mg/dl (0.60-1.20); POTASSIUM 3.3 mmol/L (3.5-5.1)
[2017-07-21] MEDS ORDERED: COUGH DROP (SUGAR FREE) LOZ 24 LOZ/1 BOX LOZ PRN (10:45)
[2017-07-21] MEDS ORDERED: GUAIFENESIN 200 MG TAB PO SCH (12:00)
[2017-07-21] MEDS ORDERED: NURSING VERBAL MED ORDER ONE (14:00)
--- NOTE | 2017-07-21 14:59 | CARDIOLOGY CONSULTATION ---
DATE OF CONSULTATION: 07/21/2017 REQUESTING PHYSICIAN: Dr. Sara Parker. MULTI OPERATION FORMING MACHINE SETTER: Pete Pope D.O., [facility]. REASON FOR CONSULTATION: Symptomatic narrow complex tachycardia. Dear Dr. Parker, Thank you for requesting cardiology consultation on Jess with regards to her recurrent supraventricular arrhythmias. She notes she has had a history of palpitations in the past. The most recent episode prior to last evening was in May 2016 where she was admitted to a hospital on the [facility] with a tachycardia, according to her, a rate of 240 beats per minute. It sounds like she received medication and spontaneously converted back to sinus rhythm. She also describes undergoing stress echocardiography. She describes that the stress test has been normal as best she can remember. This past episode that brought her to the Emergency Room here at [facility], she had fevers and chills and sweats over the last number of days. She went to an urgent care center where she was sounded extremely tight. She was given an albuterol nebulizer treatment and with that albuterol, she then felt sudden onset of palpitations. She had palpitations, did not feel well. She came to the Emergency Room here at [facility] where she was found to be in a narrow complex tachycardia with some irregularity. She received multiple doses of IV beta blockers including a total of 50 mg of metoprolol with some slowing of the rate, but she remained hypotensive. She was given adenosine 6 mg to try to determine whether this was an atrial flutter. There were no diagnostic telemetry strips or EKG strips at that time. It sounds like it did not make any significant change in her arrhythmia and she was successfully cardioverted with 200 joules in a biphasic sink mode back to sinus rhythm. This morning, she still sounds very tight as she is audibly wheezing. She denies any chest pain or chest pressure, lightheadedness or dizziness, presyncope or syncope. 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 She does have a cough. She denies any further fevers or chills. She denies any bleeding, bruising, dark stools or black stools. Her appetite and weight are stable. She does snore slightly. She notes she does not sleep well due to her chronic pain syndrome. Therefore, making assessment of sleep apnea is difficult. The rest of review of system otherwise negative. PAST MEDICAL HISTORY: 1. History of recurrent SVT, possibly atrial flutter versus atrial tachycardia versus atrial fibrillation. 2. Complex regional pain syndrome following a left total knee replacement, on chronic pain medication. OUTPATIENT MEDICATIONS: Aspirin, gabapentin and oxycodone. ALLERGIES: AMINOPHYLLINE. FAMILY HISTORY: No family history of premature heart disease. SOCIAL HISTORY: She has an occasional alcoholic beverage. She is a former smoker. She is and retired. PHYSICAL EXAMINATION: GENERAL: She is awake, alert, oriented x3. She is in no acute distress. VITAL SIGNS: Her heart rate is 69, respirations 16, blood pressure 138/69, sat is 98% on 3 liters. HEENNT: 2+ carotid upstrokes, no evidence of carotid bruits. Jugular venous pressure appeared normal. Her sclerae is anicteric. Her hearing is normal. LUNGS: Coarse breath sounds bilaterally with diffuse expiratory wheezing and rhonchi. HEART: Regular rate and rhythm. No appreciable murmurs, rubs or gallops. ABDOMEN: Soft, nontender, nondistended. Positive bowel sounds. EXTREMITIES: No clubbing, cyanosis or edema. PSYCHIATRIC: Affect appeared appropriate. NEUROLOGIC: Grossly nonfocal. DIAGNOSTIC STUDIES: EKGs from last evening, narrow complex tachycardia. In the EKG from 2031, there is a question as to whether she possibly has flutter waves in the inferior leads as well as the lateral leads. The rate is 177 beats per minute. EKG post-cardioversion sinus rhythm, 59 beats per minute, otherwise normal. There is no evidence of preexcitation. Her QTc is normal. There is no evidence of Brugada pattern. CT of her chest, patchy ground-glass opacities, multifocal bronchial wall thickening could be consistent with aspiration pneumonitis. IMPRESSION: Narrow complex tachycardia. Her EKG may suggest an atrial flutter, which would explain the very fast heart rate of 177 beats per minute here, 240 beats per minute in [place] in May 2017. The other possibility would be some concealed bypass tract that would allow her to go this fast. The other possibility would be atrial fibrillation. At 12:51 today on the monitor, she appears to have an atrial tachycardia at a rate of 140 beats per minute. I would consider an EP consult on sunday. She may benefit from an EP study, especially in light of the fact that the rate is so fast and now she has needed to be emergently cardioverted in the Emergency Room due to hypotension and tachycardia. She is very averse to taking medications. There was a discussion in [place] with regards to the diltiazem, especially in light of her lung disease as she does carry a history of asthma. As noted, she is averse to medications, but she is also averse to medical procedures given the complications after her total knee replacement. I discussed one option to consider an EP study to actually define her arrhythmia. If it is right-sided atrial flutter, then potentially a flutter ablation is curative. Additionally, it allows us to rule out atrioventricular man reentry tachycardia and a concealed bypass tract. If it atrial fibrillation, then we would need to consider additional medications for a rhythm control strategy given her symptoms. She is currently on a heparin drip and I will continue this. I would avoid albuterol and other stimulants. If her lungs remain tight, one could consider Xopenex very carefully. Additionally, if there is room, given her relative bradycardia and relatively low blood pressure, one could consider diltiazem 30 mg b.i.d. If she has recurrent arrhythmias that are uncontrollable, I would consider amiodarone at that point only short term and then I would highly recommend an EP study. Further recommendations will be forthcoming. BELKIS
[2017-07-21] MEDS: HEPARIN 25,000 UNIT/500ML D5W 500 ML IV PRN (16:48)
[2017-07-21] MEDS ORDERED: CEFTRIAXONE SOD INJ 1000 MG in DEXTROSE 5% 50ML IV SCH (17:30)
[2017-07-21] MEDS: CEFTRIAXONE SOD INJ 1000 MG in DEXTROSE 5% 50ML IV SCH (20:33)
[2017-07-21] MEDS: POTASSIUM CHLORIDE 20 MEQ TABCR PO SCH (20:34)
[2017-07-22] VITALS: BP 110/62; PULSE 59; TEMP 36.9; O2SAT 91
[2017-07-22 03:50] VITALS: BP 117/60; PULSE 61; TEMP 36.8; O2SAT 96
[2017-07-22] MEDS: OXYCODONE HCL 20 MG TABCR (OXYCONTIN) PO SCH ×3 (05:28→20:26)
[2017-07-22 06:17] LABS: BASO % 0.3 %; BASO ABS # 0.01 K/uL (0-0.2); EOS % 1.9 %; EOS ABS # 0.06 K/uL (0-0.5); HEMATOCRIT 36.8 % (37-47); HEMOGLOBIN 11.9 g/dL (12.0-16.0); LYMPH % 28.4 %; LYMPH ABS # 0.89 K/uL (1.2-3.4); MEAN CELL VOLUME 81.8 fL (80-100); MEAN CORPUSCULAR HEMOGLOBIN 26.4 pg (25-34); MEAN CORPUSCULAR HGB CONC 32.3 g/dl (32-36); MEAN PLATELET VOLUME 9.9 fL (7.4-10.4); MONO % 11.2 %; MONO ABS # 0.35 K/uL (0.11-0.59); NEUT % 58.2 %; NEUT ABS # 1.82 K/uL (1.4-6.5); PLATELET COUNT 173 K/uL (130-400); RED CELL DISTRIBUTION WIDTH CV 15.8 % (11.5-14.5); RED CELL DISTRIBUTION WIDTH SD 47.3 fL (36.4-46.3); WHITE BLOOD COUNT 3.13 K/uL (4.8-10.8)
[2017-07-22 06:51] LABS: CALCIUM 8.5 mg/dl (8.5-10.1); CREATININE 0.48 mg/dl (0.60-1.20)
[2017-07-22 07:01] LABS: PTT PATIENT 56.1 SECONDS (21.0-31.0)
[2017-07-22] MEDS: POTASSIUM CHLORIDE 20 MEQ TABCR PO SCH ×2 (07:43→20:26)
[2017-07-22] MEDS: ASPIRIN 81 MG ECTAB PO SCH (07:43)
[2017-07-22] MEDS: OSELTAMIVIR PHOSPHATE 75 MG CAP PO SCH ×2 (07:43→20:26)
[2017-07-22] MEDS: GABAPENTIN 300 MG CAP PO SCH ×3 (07:43→20:26)
--- NOTE | 2017-07-22 08:22 | Family Medicine Progress Note ---
Progress Note Date of Service Jul 22, 2017. Subjective Pt evaluation today including: conversation w/ patient, conversation w/ family , physical exam, chart review, lab review, review of studies, conversation w/ field sales consultant, review of inpatient medication list Patient feeling better. She denies any acute overnight event. She is breathing comfortably on room air, and has been ambulating to the bathroom without dyspnea. She continues to have coughing fits and associated MSK pain. She has been using the flutter valve which is helping her to expectorate. She otherwise denies fevers/chills, headaches, CP, palpitations, abdominal pain, lower extremity swelling or rashes. She has been tolerating diet without nausea or vomiting, and voiding and stooling appropriately. ROS is unremarkable except as noted above. Objective Vital Signs Date Time Temp Pulse Resp B/P (MAP) Pulse Ox O2 Delivery O2 Flow Rate FiO2 07/22/17 04:00 Room Air 07/22/17 03:50 36.8 61 16 117/60 (79) 96 07/22/17 00:00 91 Room Air 07/22/17 00:00 36.9 59 16 110/62 (78) 91 Room Air 07/21/17 20:30 Room Air 07/21/17 20:25 36.7 58 16 108/63 (78) 96 Room Air 07/21/17 16:00 Room Air 07/21/17 15:24 36.7 78 20 109/54 (72) 95 Room Air 07/21/17 12:41 37.0 60 16 116/58 (77) 97 Room Air 07/21/17 12:30 Room Air 07/21/17 12:11 36.5 69 16 138/69 (92) 98 Nasal Cannula 3.0 07/21/17 08:29 37.2 58 18 113/64 (80) 94 Room Air Physical Exam Notes: General Appearance: WD/WN, no apparent distress Eyes: normal inspection ENT: hearing grossly normal Neck: supple, no adenopathy Respiratory/Chest: no accessory muscle use, + crackles, + rales, + wheezing Cardiovascular: regular rate, rhythm, no edema, no murmur Abdomen: normal bowel sounds, non tender, soft Extremities: no pedal edema, no calf tenderness Neurologic/Psychiatric: alert, normal mood/affect, oriented x 3 Skin: normal color, warm/dry, no rash Laboratory Results Results Past 24 Hours Test 07/22/17 05:56 Range/Units White Blood Count 3.13 4.8-10.8 K/uL Red Blood Count 4.50 4.2-5.4 M/uL Hemoglobin 11.9 12.0-16.0 g/dL Hematocrit 36.8 37-47 % Mean Corpuscular Volume 81.8 80-100 fL Mean Corpuscular Hemoglobin 26.4 25-34 pg Mean Corpuscular Hemoglobin Concent 32.3 32-36 g/dl Platelet Count 173 130-400 K/uL Mean Platelet Volume 9.9 7.4-10.4 fL Neutrophils (%) (Auto) 58.2 % Lymphocytes (%) (Auto) 28.4 % Monocytes (%) (Auto) 11.2 % Eosinophils (%) (Auto) 1.9 % Basophils (%) (Auto) 0.3 % Neutrophils # (Auto) 1.82 1.4-6.5 K/uL Lymphocytes # (Auto) 0.89 1.2-3.4 K/uL Monocytes # (Auto) 0.35 0.11-0.59 K/uL Eosinophils # (Auto) 0.06 0-0.5 K/uL Basophils # (Auto) 0.01 0-0.2 K/uL RDW Standard Deviation 47.3 36.4-46.3 fL RDW Coefficient of Variation 15.8 11.5-14.5 % Immature Granulocyte % (Auto) 0.0 % Immature Granulocyte # (Auto) 0.00 0.00-0.02 K/uL Activated Partial Thromboplast Time 56.1 21.0-31.0 SECONDS Partial Thromboplastin Ratio 2.2 Sodium Level 140 136-145 mmol/L Potassium Level 4.0 3.5-5.1 mmol/L Chloride Level 109 98-107 mmol/L Carbon Dioxide Level 24 21-32 mmol/L Anion Gap 7.0 3-11 mmol/L Blood Urea Nitrogen 14 7-18 mg/dl Creatinine 0.48 0.60-1.20 mg/dl Est Creatinine Clear Calc Drug Dose 140.3 ml/min Estimated GFR () 120.1 Estimated GFR (Non- 103.7 BUN/Creatinine Ratio 28.5 10-20 Random Glucose 88 70-99 mg/dl Calcium Level 8.5 8.5-10.1 mg/dl Assessment and Plan 62 y/o F Hx AF, SVT, complex regional pain syndrome presented to ED with palpitations after use of albuterol nebulizer and found to have a tachyarrhythmia in the ED with HR 170. No resolutions was achieved with 3 doses of IV Metoprolol or 18mg adenosine. Emergent cardioversion with 200j was performed when she became asymptomatically hypotensive, after which she converted to normal sinus rhythm with HR 60, and remained stable. She was also found to be positive with influenza A Tachyarrhythmia - resolved. Most likely A flutter - converted to a sinus rhythm. Cardiology consulted, recs appreciated. CTA negative for PE. - On heparin drip. Patient has a low STEFFI score and has indicated that she does not want to take anticoagulants going forward regardless. - Avoid albuterol if possible - EP study ordered. If this shows accessory pathway which may cause for recurrent arrhythmia, patient possibly agreeable for ablation. If no anatomical cause found, patient wishes to discontinue all medication (rate control and anticoagulation) prior to discharge. She is aware and accepts the risk of fatal cardiac arrhythmia. Elevated troponin - Patient asymptomatic, elevated troponin no CP - likely related to high HR and resultant demand mismatch. Troponin downtrending - Trace echo report to rule out wall motion abnormalities - Continue anticoagulation in interim, as above Influenza A - CXR and CTA negative for infiltrates. - Continue Tamiflu - Droplet precautions - Flutter valve and cough lozenges ordered - Consideration for Xopenex if patient dyspneic Urinary tract infection - patient asymptomatic. - UA positive for ketones, leukocytes, nitrates, blood - UCx growing E.coli, sensitivities pending - Started ceftriaxone - day 2 Hypokalemia - K+ 4.0 today after supplementation - Trend BMP Complex regional pain syndrome - Continue home gabapentin and oxycodone regimen VTE ppx - Heparin Full code Continued [facility] stay due to: abnormal vital signs Discharge planning: home Resident Tracking Resident Involvement: Resident Care Provided Care Provided: Adult Hospital Medicine Assessment/Plan Resident Physician Supervision Note: I was present with Dr. Parker during the history and exam. I discussed the case with the resident and agree with the findings and plan as documented in the note. Any exceptions or clarifications are listed here. Pt reports nonproductive cough and chest tightness which is stable/improved. Long discussion with patient regarding halfway oral medication (diltiazem for tachyarrhythmia prevention and AC) - she refuses to take these medications chiefly because she is tired of her chronic pain and does not want to participate in any further care, preferring instead to 'go out on her own terms' . She has complex regional pain syndrome which has been spreading and pain mgmt has been decreasing her medication and she is feeling increasingly hopeless regarding the outlook of her disease. She has expressed a willingness to but does deny suicidal ideation in the same breath. I encouraged her to seek therapy and offered resources through the hospital which she did not directly respond to. She is still adamant about not taking the medications, so per cardiology recommendations would likely just stop heparin if she doesn't want to do PO AC following. Continue to avoid albuterol 2/2 inducing arrhythmia, but could try xopenex if needed. Would follow with cardiology/EP tomorrow, as she is willing to have the initial evaluation from that department.
[2017-07-22 08:29] VITALS: BP 126/66; PULSE 60; TEMP 36.6; O2SAT 98
[2017-07-22] MEDS ORDERED: CEFTRIAXONE SOD INJ 1,000 MG in DEXTROSE 5% 50ML 50 ML IV SCH (09:00)
--- NOTE | 2017-07-22 10:56 | Cardiology Follow-Up ---
Subjective General Date of Service: Jul 22, 2017. Pt evaluation today including: conversation w/ patient, chart review, lab review History of Present Illness The patient is a 62 year old female Allergies Coded Allergies: Aminophylline (Verified Allergy, Unknown, hives, 07/20/17) per patient report Social History Smoking Status: Former Smoker Hx Tobacco Use In Past Year?: No Hx Alcohol Use - Type And Amou: No Hx Substance Use - Type And Am: No Problem List Medical Problems: (1) Atrial fibrillation with RVR Status: Acute Review of Systems Respiratory: + cough, + wheezing, + dyspnea on exertion, No dyspnea at rest Cardiac: + chest pain (with coughing), No edema, No palpitations Physical Exam Vital Signs Last Vital Signs Documentation Date Time Temp Pulse Resp B/P (MAP) Pulse Ox O2 Delivery O2 Flow Rate FiO2 07/22/17 08:29 36.6 60 18 126/66 (86) 98 Room Air 07/21/17 12:11 3.0 Physical Exam Constitutional: General Apperance: heathly-appearing Level of Distress: NAD Lungs: Respiratory effort: no dyspnea Auscultation: deminished air movement, decreased breath sounds, expiratory wheezing, rhonchi Cardiovascular: Heart Auscultation: RRR, no murmurs, no rubs, no gallops Abdomen: Bowel Sounds: normal Inspection & Palpation: soft, non-distended, no tenderness, guarding & rebound Extremities: no edema Assessment and Plan Assessment and Plan 1) Narrow complex tachycardia requiring emergent DC CV in ER secondary to hypotension Her EKG from the ED may suggest an atrial flutter and a tele strip at 12:51 on 07/21 suggests a slower Atach at 120 BPM. the flutter would explain the very fast heart rate of 177 beats per minute here and the episode at 240 beats per minute in [place] in May 2016. 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 No BB due to lung dz. Discussed risk if this is Atrial flutter or a very fast Atach that goes 1:1 at 240 BPM this could lead to VF and SCD and an EP study is reasonable to risk stratify and if right sided flutter ablate She at this point refuses and understands risks of SCD Will ask Dr Miller to see in am for his opinion. D/c heaprin as she will not take AC at Home even if flutter Laboratory Results Last 24 Hours Test 07/21/17 16:04 07/22/17 05:56 Troponin I 0.503 ng/ml White Blood Count 3.13 K/uL Red Blood Count 4.50 M/uL Hemoglobin 11.9 g/dL Hematocrit 36.8 % Mean Corpuscular Volume 81.8 fL Mean Corpuscular Hemoglobin 26.4 pg Mean Corpuscular Hemoglobin Concent 32.3 g/dl Platelet Count 173 K/uL Mean Platelet Volume 9.9 fL Neutrophils (%) (Auto) 58.2 % Lymphocytes (%) (Auto) 28.4 % Monocytes (%) (Auto) 11.2 % Eosinophils (%) (Auto) 1.9 % Basophils (%) (Auto) 0.3 % Neutrophils # (Auto) 1.82 K/uL Lymphocytes # (Auto) 0.89 K/uL Monocytes # (Auto) 0.35 K/uL Eosinophils # (Auto) 0.06 K/uL Basophils # (Auto) 0.01 K/uL RDW Standard Deviation 47.3 fL RDW Coefficient of Variation 15.8 % Immature Granulocyte % (Auto) 0.0 % Immature Granulocyte # (Auto) 0.00 K/uL Activated Partial Thromboplast Time 56.1 SECONDS Partial Thromboplastin Ratio 2.2 Sodium Level 140 mmol/L Potassium Level 4.0 mmol/L Chloride Level 109 mmol/L Carbon Dioxide Level 24 mmol/L Anion Gap 7.0 mmol/L Blood Urea Nitrogen 14 mg/dl Creatinine 0.48 mg/dl Est Creatinine Clear Calc Drug Dose 140.3 ml/min Estimated GFR () 120.1 Estimated GFR (Non- 103.7 BUN/Creatinine Ratio 28.5 Random Glucose 88 mg/dl Calcium Level 8.5 mg/dl
[2017-07-22] MEDS: HEPARIN 25,000 UNIT/500ML D5W 500 ML IV PRN (11:24)
[2017-07-22 12:33] VITALS: BP 109/66; PULSE 62; TEMP 36.6; O2SAT 96
[2017-07-22 15:21] VITALS: BP 130/69; PULSE 61; TEMP 36.7; O2SAT 95
[2017-07-22 19:36] VITALS: BP 158/62; PULSE 65; TEMP 37; O2SAT 96
[2017-07-22] MEDS: CEFTRIAXONE SOD INJ 1000 MG in DEXTROSE 5% 50ML IV SCH (20:26)
[2017-07-23 00:37] VITALS: PULSE 57; TEMP 36.7; O2SAT 96
[2017-07-23] MEDS: OXYCODONE HCL IR 5 MG TAB (IMMEDIATE RELEASE) PO PRN (02:35)
[2017-07-23] MEDS: OXYCODONE HCL 20 MG TABCR (OXYCONTIN) PO SCH ×3 (05:13→20:44)
[2017-07-23 06:25] LABS: HEMATOCRIT 37.6 % (37-47); HEMOGLOBIN 12.4 g/dL (12.0-16.0); MEAN CELL VOLUME 81.4 fL (80-100); MEAN CORPUSCULAR HEMOGLOBIN 26.8 pg (25-34); MEAN PLATELET VOLUME 9.9 fL (7.4-10.4); PLATELET COUNT 186 K/uL (130-400); RED CELL DISTRIBUTION WIDTH CV 15.7 % (11.5-14.5); RED CELL DISTRIBUTION WIDTH SD 46.9 fL (36.4-46.3); WHITE BLOOD COUNT 2.69 K/uL (4.8-10.8)
[2017-07-23 06:52] LABS: CALCIUM 8.7 mg/dl (8.5-10.1); CREATININE 0.59 mg/dl (0.60-1.20)
[2017-07-23 07:09] LABS: PTT PATIENT 60.6 SECONDS (21.0-31.0)
[2017-07-23] MEDS ORDERED: PERFLUTREN LIPID MICROSPHERE (DEFINITY) IV ONE (07:33)
[2017-07-23] MEDS: HEPARIN 25,000 UNIT/500ML D5W 500 ML IV PRN (07:35)
[2017-07-23 08:00] VITALS: BP 133/61; PULSE 51; TEMP 37.1; O2SAT 96
--- NOTE | 2017-07-23 08:09 | Family Medicine Progress Note ---
Progress Note Date of Service Jul 23, 2017. Subjective Pt evaluation today including: conversation w/ patient Reports feeling ok. Is not short of breath at rest. Does not want systemic steroids but is willing to try inhaled Flovent. She reports she had also taken Albuterol in the past which would make her shaky, but never cause the cardiac effects which occur. She is hesitant about any procedures for her heart, "even if everyone was in agreement does not mean I would want it" but agrees to a non- invasive diagnostic procedure Constitutional: No fever, No chills Eyes: No worsening of vision ENT: No hearing loss Respiratory: + wheezing, + dyspnea on exertion, No cough Cardiovascular: No chest pain All Other Systems: Reviewed and Negative Medications Current Inpatient Medications Medications (Trade) Dose Ordered Sig/Mercedes Route Start Time Stop Time Status Last Admin Dose Admin Acetaminophen (Tylenol Tab) 650 mg Q4H PRN PO 07/20/17 22:00 08/19/17 21:59 Al Hydrox/Mg Hydrox/Simethicone (Maalox Max Susp) 15 ml Q4H PRN PO 07/20/17 22:00 08/19/17 21:59 Magnesium Hydroxide (Milk Of Magnesia Susp) 30 ml Q12H PRN PO 07/20/17 22:00 08/19/17 21:59 Ondansetron HCl (Zofran Inj) 4 mg Q6H PRN IV 07/20/17 22:00 08/19/17 21:59 Morphine Sulfate (MoRPHine SULFATE INJ) 2 mg Q30M PRN IV 07/20/17 22:00 08/03/17 21:59 Polyethylene (Miralax Powder Packet) 17 gm DAILY PRN PO 07/20/17 22:00 08/19/17 21:59 Aspirin (Ecotrin Tab) 81 mg QAM PO 07/21/17 09:00 08/20/17 08:59 07/22/17 07:43 81 MG Gabapentin (Neurontin Cap) 600 mg HS PO 07/21/17 21:00 08/20/17 20:59 07/22/17 20:26 600 MG Gabapentin (Neurontin Cap) 300 mg BID@0900,1400 PO 07/21/17 09:00 08/20/17 08:59 07/22/17 13:22 300 MG Oxycodone HCl (Roxicodone Immediate Rel Tab) 20 mg Q4H PRN PO 07/20/17 22:00 08/03/17 21:59 07/23/17 02:35 20 MG Diltiazem HCl 125 mg/Dextrose 125 ml @ 0 mls/hr Q0M PRN IV 07/20/17 22:15 08/19/17 22:14 Oseltamivir Phosphate (Tamiflu Cap) 75 mg BID PO 07/21/17 09:00 07/26/17 08:59 07/22/17 20:26 75 MG Ioversol (Optiray 320) 100 ml UD PRN IV 07/20/17 23:00 07/24/17 22:59 Heparin Sodium/ Dextrose 500 ml @ 27 mls/hr [id number] PRN IV 07/20/17 23:45 08/19/17 23:44 07/23/17 07:35 27 MLS/HR Menthol (Nice Karthik) 1 karthik Q4H PRN KARTHIK 07/21/17 10:45 08/20/17 10:44 Oxycodone HCl (Oxycontin Tab) 60 mg TID@0500,1300,2100 PO 07/21/17 21:00 08/04/17 08:59 07/23/17 05:13 60 MG Ceftriaxone Sodium 1 gm/ Dextrose 50 ml @ 100 mls/hr Q24H IV 07/21/17 20:00 07/26/17 19:59 07/22/17 20:26 100 MLS/HR Objective Vital Signs Date Time Temp Pulse Resp B/P (MAP) Pulse Ox O2 Delivery O2 Flow Rate FiO2 07/23/17 08:00 37.1 51 16 133/61 (85) 96 Room Air 07/23/17 04:00 Room Air 07/23/17 00:37 36.7 57 18 96 Room Air 07/22/17 23:59 Room Air 07/22/17 20:00 Room Air 07/22/17 19:36 37.0 65 20 158/62 (94) 96 Room Air 07/22/17 15:45 Room Air 07/22/17 15:21 36.7 61 20 130/69 (89) 95 Room Air 07/22/17 12:33 36.6 62 62 109/66 (80) 96 Room Air 07/22/17 12:00 Room Air 07/22/17 08:29 36.6 60 18 126/66 (86) 98 Room Air Physical Exam General Appearance: WD/WN, no apparent distress, + pertinent finding (wheeze audible from end of bed) Eyes: normal inspection, PERRL ENT: hearing grossly normal Neck: supple, no JVD Respiratory/Chest: + pertinent finding (poor air entry, diffuse wheeze and rhonchi, no audible crackles. Pt is breathing room air and not using accessory muscles.) Cardiovascular: regular rate, rhythm, no murmur Abdomen: normal bowel sounds, non tender, soft Extremities: normal range of motion, non-tender, no pedal edema Neurologic/Psychiatric: alert, normal mood/affect, oriented x 3 Skin: no rash Laboratory Results Last 24 Hours Test 07/23/17 05:35 White Blood Count 2.69 K/uL Red Blood Count 4.62 M/uL Hemoglobin 12.4 g/dL Hematocrit 37.6 % Mean Corpuscular Volume 81.4 fL Mean Corpuscular Hemoglobin 26.8 pg Mean Corpuscular Hemoglobin Concent 33.0 g/dl RDW Standard Deviation 46.9 fL RDW Coefficient of Variation 15.7 % Platelet Count 186 K/uL Mean Platelet Volume 9.9 fL Activated Partial Thromboplast Time 60.6 SECONDS Partial Thromboplastin Ratio 2.3 Sodium Level 140 mmol/L Potassium Level 4.0 mmol/L Chloride Level 105 mmol/L Carbon Dioxide Level 29 mmol/L Anion Gap 6.0 mmol/L Blood Urea Nitrogen 12 mg/dl Creatinine 0.59 mg/dl Est Creatinine Clear Calc Drug Dose 114.1 ml/min Estimated GFR () 112.3 Estimated GFR (Non- 96.9 BUN/Creatinine Ratio 20.0 Random Glucose 79 mg/dl Calcium Level 8.7 mg/dl Assessment and Plan 62 yo F, hx of asthma with an exacerbation due to Influenza, went into tachyarrythmia after having albuterol nebulizer, which is likely atrial fibrillation/flutter, now in sinus rhythm. Pt declines anticoagulation, rate controlling medications, and oral prednisone for asthma exacerbation. Paroxysmal atrial fibrillation - Now in sinus rhythm. Was seen by Dr Pollock today. - CHADS-VASc score 1 -> 0.6% stroke risk per year. Patient declines anticoagulation regardless, as well as declines Cardizem. - Heparin drip stopped per pt request. Pt reports she understands and accepts the risk of stroke, arrhythmia, or . Influenza A on background of mild intermittent asthma, causing acute asthma exacerbation - Continue Tamiflu - Droplet precautions - Flutter valve and cough lozenges ordered - Recommend oral prednisone for her poor air entry on exam - pt declined - Started on Advair which pt had been on before - Pt ambulated in hallways without dropping oxygen saturations Urinary tract infection, E Coli - Will tx with Bactrim PO x 5 days Hypokalemia, resolved - K+ 4.0 today after supplementation Complex regional pain syndrome - Continue home gabapentin - Continue home oxycontin 60mg TID - PDMP reviewed: Pt gets Oxycodone 20mg q4h (180 tab per month) and Oxycontin 60mg TID. Daily MME 330mg. VTE: SCDs Dispo: Eventual DC home, will transfer to Med/Surg today Code status: Full Resident Physician Supervision Note: I interviewed and examined the patient. Discussed with and agree with findings and plan as documented in the note. Any exceptions or clarifications are listed here: None PT is doing better but is resistant to agressive measures to evaluate her afib and she feels this is situational from recent influenza, low potassium and some albuterol, has no current issues and does not want to consider full anticoagulation. vitals are stable car sounds irregular at times lungs are with decreased breath sounds at bases and coarse upper airway breathsounds at apex Asthma, some air trapping and continued mild respiratory distress, will try advair as pt stated did help in the past continue inhaled medicines, rate control afib with diltiazem, pt refuses anticoagulation E coli uti poa treated with bactrim Documented By: Lefty Tapia Resident Tracking Resident Involvement: Resident Care Provided Care Provided: Adult Hospital Medicine
--- NOTE | 2017-07-23 09:11 | Cardiology Consultation ---
Cardiology Consultation Date of Consultation: Jul 23, 2017. Requesting Physician: Dr. Pope Reason for Consultation: SVT Pt evaluation today including: conversation w/ patient, physical exam, lab review, review of studies, conversation w/ [facility] ascp consultant History of Present Illness This is a 62-year-old woman who was hospitalized in a hospital in [place] in May 2016 with rapid tachycardia, she evidently spontaneously converted to sinus rhythm but we do not know the specific arrhythmia. She also had a stress echo performed by her description which she believes was normal. Here she had a URI which was treated with albuterol, she then had sudden onset of palpitations, felt poorly and presented to the emergency room here where she was noted to be in a rapid narrow complex tachycardia. She evidently was given adenosine with no change in her rhythm, received intravenous beta-blockade and I believe diltiazem as well with some hypotension and subsequently she was converted with 200 J to sinus rhythm. She has remained in sinus rhythm and is on no AV man blocking medications but is on anticoagulation with heparin and has as needed diltiazem ordered. On discussing her symptoms with her, she describes having symptoms going back about 2-1/2 years, she feels that it only occurred when she visited her home farm in the [facility], initially she tried to ignore it but it got bad enough that she was evaluated in [place] where she tells me the diagnosis of SVT and atrial fibrillation was made (this is the visit in May 2016). She is resistant to medical therapy. She then presented on this occasion, she tells me that this episode was different but the symptoms she describes are similar and I suspect it is a similar arrhythmia occurring under different set of circumstances. Since admission she has felt well from the cardiovascular standpoint although she has some pulmonary symptoms, she has had no palpitations and no shortness of breath and no chest discomfort. Past Medical/Surgical History What sounds like paroxysmal atrial fibrillation by her history Left knee replacement Family History Patient reports no known family medical history. Social History Smoking Status: Former Smoker History of Alcohol Use: No Review of Systems Constitutional: No fever, No weight loss, No weakness Respiratory: + see HPI, + wheezing, + shortness of breath, + dyspnea on exertion, No cough Cardiac: + palpitations, + problem reported (Scapular pain on presentation), No chest pain Abdomen: No pain, No nausea, No vomiting, No diarrhea, No GI bleeding Female : No problem reported Neurologic: No paralysis, No weakness, No numbness/tingling, No balance problems Heme: No abnormal bleeding/bruising, No clotting problems Endo: No fatigue Skin: No problem reported All Other Systems: Reviewed and Negative Allergies Coded Allergies: Aminophylline (Verified Allergy, Unknown, hives, 07/20/17) per patient report Medications Current Inpatient Medications Medications (Trade) Dose Ordered Sig/Mercedes Route Start Time Stop Time Status Last Admin Dose Admin Acetaminophen (Tylenol Tab) 650 mg Q4H PRN PO 07/20/17 22:00 08/19/17 21:59 Al Hydrox/Mg Hydrox/Simethicone (Maalox Max Susp) 15 ml Q4H PRN PO 07/20/17 22:00 08/19/17 21:59 Magnesium Hydroxide (Milk Of Magnesia Susp) 30 ml Q12H PRN PO 07/20/17 22:00 08/19/17 21:59 Ondansetron HCl (Zofran Inj) 4 mg Q6H PRN IV 07/20/17 22:00 08/19/17 21:59 Morphine Sulfate (MoRPHine SULFATE INJ) 2 mg Q30M PRN IV 07/20/17 22:00 08/03/17 21:59 Polyethylene (Miralax Powder Packet) 17 gm DAILY PRN PO 07/20/17 22:00 08/19/17 21:59 Aspirin (Ecotrin Tab) 81 mg QAM PO 07/21/17 09:00 08/20/17 08:59 07/22/17 07:43 81 MG Gabapentin (Neurontin Cap) 600 mg HS PO 07/21/17 21:00 08/20/17 20:59 07/22/17 20:26 600 MG Gabapentin (Neurontin Cap) 300 mg BID@0900,1400 PO 07/21/17 09:00 08/20/17 08:59 07/22/17 13:22 300 MG Oxycodone HCl (Roxicodone Immediate Rel Tab) 20 mg Q4H PRN PO 07/20/17 22:00 08/03/17 21:59 07/23/17 02:35 20 MG Diltiazem HCl 125 mg/Dextrose 125 ml @ 0 mls/hr Q0M PRN IV 07/20/17 22:15 08/19/17 22:14 Oseltamivir Phosphate (Tamiflu Cap) 75 mg BID PO 07/21/17 09:00 07/26/17 08:59 07/22/17 20:26 75 MG Ioversol (Optiray 320) 100 ml UD PRN IV 07/20/17 23:00 07/24/17 22:59 Heparin Sodium/ Dextrose 500 ml @ 27 mls/hr [id number] PRN IV 07/20/17 23:45 08/19/17 23:44 07/23/17 07:35 27 MLS/HR Menthol (Nice Karthik) 1 karthik Q4H PRN KARTHIK 07/21/17 10:45 08/20/17 10:44 Oxycodone HCl (Oxycontin Tab) 60 mg TID@0500,1300,2100 PO 07/21/17 21:00 08/04/17 08:59 07/23/17 05:13 60 MG Ceftriaxone Sodium 1 gm/ Dextrose 50 ml @ 100 mls/hr Q24H IV 07/21/17 20:00 07/26/17 19:59 07/22/17 20:26 100 MLS/HR Fluticasone Propionate (Flovent Hfa 110MCG Inhaler) 2 puffs BID INH 07/23/17 09:00 08/22/17 08:59 Physical Exam Vital Signs Past 12 Hours Date Time Temp Pulse Resp B/P (MAP) Pulse Ox O2 Delivery O2 Flow Rate FiO2 07/23/17 08:00 37.1 51 16 133/61 (85) 96 Room Air 07/23/17 04:00 Room Air 07/23/17 00:37 36.7 57 18 96 Room Air 07/22/17 23:59 Room Air Constitutional: General Apperance: heathly-appearing, overweight Level of Distress: NAD Psychiatric: Mental Status: active & alert Head: normocephalic Eyes: EOM: EOMI ENMT: normal ENT inspection, hearing grossly normal Neck: supple, no masses Lungs: Respiratory effort: no dyspnea Auscultation: deminished air movement, decreased breath sounds, expiratory wheezing, rhonchi Cardiovascular: Heart Auscultation: RRR, no murmurs, no rubs, no gallops Peripheral Pulses: Bruits: none appreciated Abdomen: Bowel Sounds: normal Inspection & Palpation: soft, non-distended, no tenderness, guarding & rebound Extremities: no edema Neurologic: Cranial Nerves: grossly intact Sensation: grossly intact Data Laboratory Results: Last 24 Hours Test 07/23/17 05:35 White Blood Count 2.69 K/uL Red Blood Count 4.62 M/uL Hemoglobin 12.4 g/dL Hematocrit 37.6 % Mean Corpuscular Volume 81.4 fL Mean Corpuscular Hemoglobin 26.8 pg Mean Corpuscular Hemoglobin Concent 33.0 g/dl RDW Standard Deviation 46.9 fL RDW Coefficient of Variation 15.7 % Platelet Count 186 K/uL Mean Platelet Volume 9.9 fL Activated Partial Thromboplast Time 60.6 SECONDS Partial Thromboplastin Ratio 2.3 Sodium Level 140 mmol/L Potassium Level 4.0 mmol/L Chloride Level 105 mmol/L Carbon Dioxide Level 29 mmol/L Anion Gap 6.0 mmol/L Blood Urea Nitrogen 12 mg/dl Creatinine 0.59 mg/dl Est Creatinine Clear Calc Drug Dose 114.1 ml/min Estimated GFR () 112.3 Estimated GFR (Non- 96.9 BUN/Creatinine Ratio 20.0 Random Glucose 79 mg/dl Calcium Level 8.7 mg/dl Imaging: Echocardiography shows normal left ventricular function with mild left ventricular hypertrophy EKG: Initial electrocardiogram shows atrial fibrillation with a rapid ventricular response Telemetry reviewed: Atrial fibrillation with rapid ventricular response in the emergency room, sinus rhythm since cardioversion Assessment & Plan 1. Tachycardia: From her initial electrocardiogram I suspect this is atrial fibrillation, I cannot exclude atrial flutter (although I would treat it the same initially with medications) or SVT as a causative factor since we did not identify the onset. Demographically she is at risk of atrial fibrillation, and we know that she does have it. I would therefore at least treat her for her atrial fibrillation with AV man blocking medications and anticoagulants, further investigation with monitoring could be performed to determine the onset and see whether other treatment (such as ablation) might be indicated. I would start with diltiazem and avoid beta blockade due to her current bronchospasm, perhaps she will need digoxin as well since her heart rate is very fast. I would also use an anticoagulant, I suggested Eliquis. She requested that I give her both names which I did so she can investigate them as she is generally opposed to using pharmaceutical agents. At the moment there is very little else we can do. Thank you for allowing me to participate in her care.
[2017-07-23] MEDS: GABAPENTIN 300 MG CAP PO SCH ×3 (09:20→20:46)
[2017-07-23] MEDS: ASPIRIN 81 MG ECTAB PO SCH (09:20)
[2017-07-23] MEDS: FLUTICASONE HFA 110MCG INHALER INH SCH ×2 (09:20→20:44)
[2017-07-23] MEDS: OSELTAMIVIR PHOSPHATE 75 MG CAP PO SCH ×2 (09:20→20:47)
[2017-07-23] MEDS ORDERED: FLUTICASONE/SALMETEROL 250/50 (ADVAIR) 14 PUFF/1 INHALER INH ONE (10:30)
[2017-07-23 12:00] VITALS: BP 124/67; PULSE 82; TEMP 36.6; O2SAT 94
--- NOTE | 2017-07-23 14:00 | ECHOCARDIOGRAM REPORT ---
*NOTICE TO RECEIVING LIBERTARIAN AGENCY This information is strictly Confidential and protected under [place] law. [place] law prohibits you from making any further disclosure of this information unless further disclosure is expressly permitted by the written consent of the person to whom it pertains or is authorized by law. A general authorization for the release of medical or other information is not sufficient for this purpose. Hospital accepts no responsibility if the information is made available to any other person, INCLUDING THE PATIENT. Interpretation Summary * Name: LASHAE GUTIERREZ Study Date: 07/23/2017 06:57 AM BP: 158/62 mmHg * Patient Location: C.2E\S\E204\S\1 HR: 56 * : 1955 (M/d/yyyy) Gender: Female Height: 65 in * Age: 62 yrs Ethnicity: CA Weight: 225 lb * Ordering Physician: Sara Parker. * Referring Physician: UNKNOWN * Performed By: Kathleen Jain RCS * * Reason For Study: A-FIB * BSA: 2.1 m2 * -- Conclusions -- * Left ventricular systolic function is normal. * No regional wall motion abnormalities noted. * Ejection Fraction = 60-65%. * There is mild concentric left ventricular hypertrophy. Procedure Details * A complete two-dimensional transthoracic echocardiogram was performed (2D, M-mode, Doppler and color flow Doppler). * A contrast injection of Definity was performed to improve assessment of LV function. * Contrast was injected into an intravenous site in the left arm. * One vial of Definity ultrasound contrast was diluted in normal saline to a total volume of 10 ml. A total of '2' ml of solution was administered during imaging. * Lot # [id number] of Definity utilized for procedure. * Expiration date . * The attending nurse who injected the contrast agent was FORTINO Sims. Left Ventricle * The left ventricle is normal in size. * There is mild concentric left ventricular hypertrophy. * Left ventricular systolic function is normal. * Ejection Fraction = 60-65%. * No regional wall motion abnormalities noted. Right Ventricle * The right ventricle is not well visualized. Atria * The left atrium is mildly dilated. * Right atrium not well visualized. * There is no evidence of atrial septal defect, but resolution does not allow assessment for a patent foramen ovale. Mitral Valve * The mitral valve is grossly normal. * There is no mitral valve stenosis. * Significant mitral regurgitation is absent. Tricuspid Valve * The tricuspid valve is not well visualized, but is grossly normal. * There is no tricuspid stenosis. * There is mild tricuspid regurgitation. Aortic Valve * The aortic valve is not well visualized. * The aortic valve opens well. * No hemodynamically significant valvular aortic stenosis. * Trace aortic regurgitation. Pulmonic Valve * The pulmonary valve is not well seen, but the Doppler examination is normal without significant regurgitation or stenosis. Great Vessels * The aortic root is normal size. * The pulmonary is not well visualized. Pericardium/Pleural * There is no pericardial effusion. Great Vessels * Normal inferior vena cava size and collapsability with sniff indicates a normal right atrial pressure of 3 mmHg MMode 2D Measurements and Calculations IVSd 1.2 cm IVSs 1.3 cm LVIDd 5.1 cm LVIDs 3.1 cm LVPWd 1.1 cm LVPWs 1.4 cm IVS/LVPW 1.1 FS 39.4 % EDV(Teich) 125.3 ml ESV(Teich) 38.2 ml EF(Teich) 69.5 % EDV(cubed) 134.8 ml ESV(cubed) 30.0 ml EF(cubed) 77.7 % % IVS thick 7.2 % % LVPW thick 23.1 % LV mass(C)d 239.0 grams LV mass(C)dI 114.9 grams/m\S\2 LV mass(C)s 140.5 grams LV mass(C)sI 67.6 grams/m\S\2 CO(Teich) 4.3 l/min CI(Teich) 2.1 l/min/m\S\2 SV(Teich) 87.2 ml SI(Teich) 41.9 ml/m\S\2 CO(cubed) 5.1 l/min CI(cubed) 2.5 l/min/m\S\2 SV(cubed) 104.7 ml SI(cubed) 50.4 ml/m\S\2 Ao root diam 3.9 cm Ao root area 11.8 cm\S\2 ACS 1.6 cm LA dimension 4.9 cm LA/Ao 1.3 LVAd ap4 41.7 cm\S\2 LVLd ap4 10.0 cm EDV(MOD-sp4) 142.0 ml LVAs ap4 25.4 cm\S\2 LVLs ap4 8.2 cm ESV(MOD-sp4) 61.9 ml EF(MOD-sp4) 56.4 % LVAd ap2 33.6 cm\S\2 LVLd ap2 9.0 cm EDV(MOD-sp2) 102.0 ml LVAs ap2 21.4 cm\S\2 LVLs ap2 8.4 cm ESV(MOD-sp2) 44.6 ml EF(MOD-sp2) 56.3 % CO(MOD-sp4) 3.9 l/min CI(MOD-sp4) 1.9 l/min/m\S\2 SV(MOD-sp4) 80.1 ml SI(MOD-sp4) 38.5 ml/m\S\2 CO(MOD-sp2) 2.8 l/min CI(MOD-sp2) 1.4 l/min/m\S\2 SV(MOD-sp2) 57.4 ml SI(MOD-sp2) 27.6 ml/m\S\2 Doppler Measurements and Calculations MV E max javan 86.4 cm/sec MV A max javan 54.2 cm/sec MV E/A 1.6 MV P1/2t max jaavn 116.4 cm/sec MV P1/2t 56.1 msec MVA(P1/2t) 3.9 cm\S\2 MV dec slope 607.7 cm/sec\S\2 MV dec time 0.29 sec Ao V2 max 182.4 cm/sec Ao max PG 13.3 mmHg Ao max PG (full) 9.5 mmHg AI max javan 466.0 cm/sec AI max PG 86.9 mmHg AI dec slope 154.1 cm/sec\S\2 AI P1/2t 886.1 msec LV V1 max PG 3.8 mmHg LV V1 max 97.9 cm/sec PA V2 max 50.0 cm/sec PA max PG 10 mmHg TR max javan 186.8 cm/sec
[2017-07-23 15:15] VITALS: BP 120/69; PULSE 64; TEMP 36.6; O2SAT 95
[2017-07-23 15:22] VITALS: BP 120/69; PULSE 64; TEMP 36.6; O2SAT 95
[2017-07-23] MEDS: FLUTICASONE/SALMETEROL 250/50 (ADVAIR) 14 PUFF/1 INHALER INH SCH (20:44)
[2017-07-23] MEDS: SULFAMETHOXAZOLE/TRIMETHOPRIM DS 800/160MG TAB PO SCH (20:46)
[2017-07-23 22:49] VITALS: BP 113/73; PULSE 83; TEMP 36.8; O2SAT 94
[2017-07-24] MEDS: OXYCODONE HCL 20 MG TABCR (OXYCONTIN) PO SCH ×2 (05:23→13:12)
[2017-07-24 07:24] VITALS: BP 110/73; PULSE 55; TEMP 36.7; O2SAT 95
[2017-07-24] MEDS: ASPIRIN 81 MG ECTAB PO SCH (09:18)
[2017-07-24] MEDS: FLUTICASONE/SALMETEROL 250/50 (ADVAIR) 14 PUFF/1 INHALER INH SCH (09:18)
[2017-07-24] MEDS: GABAPENTIN 300 MG CAP PO SCH ×2 (09:19→13:49)
[2017-07-24] MEDS: OSELTAMIVIR PHOSPHATE 75 MG CAP PO SCH ×2 (09:19→18:50)
[2017-07-24] MEDS: SULFAMETHOXAZOLE/TRIMETHOPRIM DS 800/160MG TAB PO SCH (09:19)
[2017-07-24] MEDS ORDERED: OSEL75CA16 PO ×2 (09:59→11:01)
--- NOTE | 2017-07-24 10:03 | Discharge Instructions ---
Discharge Instructions Date of Service Jul 24, 2017. Admission Reason for Admission: Atrial Fibrillation With Rvr Discharge Discharge Diagnosis / Problem: Atrial fibrillation, Asthma exacerbation Discharge Goals Goal(s): Improve disease control Activity Recommendations Activity Limitations: per Instructions/Follow-up section Lifting Limitations: gradually increase as tolerated Exercise/Sports Limitations: as tolerated May Resume Sexual Activity: when tolerated Shower/Bathe: no limitations . Instructions / Follow-Up Instructions / Follow-Up Follow up with Dr. Baljeet Blevins on Sunday 07/30 at 9:00 am We would recommend using the Advair twice a day for your asthma exacerbation. If you feel your breathing worsens, we would recommend going on a course of oral steroids. Signs of this would be inability to take a deep breath in or out , or having struggle breathing with walking or exercising, or feeling short of breath with speaking. We also recommend discussing anticoagulation with a blood thinner for the atrial fibrillation you were found to be in. This is for stroke prevention, which can happen when your heart goes into atrial fibrillation. We also keep the heart rate slow with medications like Diltiazem, which I would also recommend you consider. Continue the Tamiflu to complete a 5 day course. This was started on 07/21/17. Take one dose tonight and then the last two tomorrow. Continue taking Bactrim for the urinary tract infection, to finish a 5 day course as well. If you have any further urinary symptoms, please follow up with your PCP about this. Current Hospital Diet Patient's current hospital diet: AHA Diet (Heart Healthy) Discharge Diet Recommended Diet: Regular Diet, AHA Diet (Heart Healthy) Pending Studies Studies pending at discharge: no Medical Emergencies . Who to Call and When: Medical Emergencies: If at any time you feel your situation is an emergency, please call 911 immediately. . Non-Emergent Contact Non-Emergency issues call your: Primary Care Provider . . "Provider Documentation" section prepared by Mona Pappas. . Computer Programming Professor Recommendations Computer Programming Professor Recommendations: Cardiology Recommendations: From her initial electrocardiogram I suspect this is atrial fibrillation, I cannot exclude atrial flutter (although I would treat it the same initially with medications) or SVT as a causative factor since we did not identify the onset. Demographically she is at risk of atrial fibrillation, and we know that she does have it. I would therefore at least treat her for her atrial fibrillation with AV man blocking medications and anticoagulants, further investigation with monitoring could be performed to determine the onset and see whether other treatment (such as ablation) might be indicated. I would start with diltiazem and avoid beta blockade due to her current bronchospasm, perhaps she will need digoxin as well since her heart rate is very fast. I would also use an anticoagulant, I suggested Eliquis. She requested that I give her both names which I did so she can investigate them as she is generally opposed to using pharmaceutical agents. At the moment there is very little else we can do. [place] Drug Monitoring Program Search Results: patient reviewed within database Drug Monitoring Findings: received 330 MME per day, from 1 pharmacy, 2 providers
--- NOTE | 2017-07-24 10:30 | Discharge Summary ---
Discharge Summary Date of Service Jul 24, 2017. Discharge Summary Admission Date: Jul 20, 2017 at 21:53 Discharge Date: Jul 24, 2017 Discharge Disposition: Home Principal Diagnosis: Atrial fibrillation with RVR Problems/Secondary Diagnoses: Asthma exacerbation Influenza A Consultations: Dr Pollock, Cardiology Medication Reconciliation New Medications: Oseltamivir Phosphate (Oseltamivir Phosphate) 75 Mg Cap 75 MG PO BID for 1 Day, #2 TAB Fluticasone Prop/Salmeterol (Advair Diskus 250-50 Mcg/Dose) 14 Puff/1 Inhaler Aerp 1 PUFF INH BID for 30 Days, #1 UNIT 2 Refills Sulfamethoxazole-Trimethoprim (Smz-Tmp Ds) 1 Tab Tab 1 TAB PO Q12 for 1 Day, #2 TAB Continued Medications: Aspirin (Aspirin Ec) 81 Mg Tab 81 MG PO QAM Gabapentin (Neurontin) 300 Mg Cap 300 MG PO BID, CAP Gabapentin (Gabapentin) 300 Mg Cap 600 MG PO HS Oxycodone Hcl (Oxycontin) 60 Mg Tab 60 MG PO TID, TAB Oxycodone Hcl (Oxycontin) 20 Mg Tab 20 MG PO Q4 PRN for Pain, TAB Discharge Exam Review of Systems: Constitutional: No fever, No chills, No sweats Eyes: No worsening of vision ENT: No hearing loss Respiratory: + wheezing, No cough, No sputum, No shortness of breath, No dyspnea on exertion, No dyspnea at rest Cardiovascular: No chest pain, No orthopnea, No PND Abdomen: No pain, No nausea, No vomiting Musculoskeletal: No joint pain Genitourinary - Female: No dysuria, No urinary frequency, No urinary urgency , No hematuria Neurologic: No memory loss, No paralysis, No weakness Psychiatric: No depression symptoms, No anhedonism Endocrine: No fatigue, No excessive thirst Hematologic / Lymphatic: No abnormal bleeding/bruising Integumentary: No rash Physical Exam: General Appearance: WD/WN, no apparent distress Eyes: normal inspection, PERRL ENT: hearing grossly normal Neck: supple, no JVD Respiratory/Chest: no respiratory distress, no accessory muscle use, + rhonchi, + wheezing (diffuse, slightly improved from day prior) Cardiovascular: regular rate, rhythm, no murmur, normal peripheral pulses Abdomen / GI: normal bowel sounds, non tender, soft Extremities: no calf tenderness, no pedal edema Neurologic/Psychiatric: alert, normal mood/affect, oriented x 3 Skin: no rash Hospital Course HPI (per admitting provider Dr Garrison): 62 y/o F Hx AF, SVT, complex regional pain syndrome. The pt has had a productive cough for 3 days and presented to an urgent care center. She was told she may have a pneumonia and was provided with an Albuterol neb treatment. [place] through the treatment she developed palpitations. She was subsequently sent to the ER. On arrival her HR was in the 170s. An EKG revealed an indeterminate tachyarrhythmia. She received 3 doses of IV Metoprolol which slowed her heart rate minimally. She then developed hypotension although she was largely asymptomatic throughout. A dose of adenosine was provided which did not effect her rhythm. As she remained tachycardic and intermittently hypotensive, cardioversion was indicated. She received sedation followed by 200j which and converted to a sinus rhythm at a rate of 60. She remained stable following cardioversion. In the interim labs returned revealing a (+) influenza and a marginally elevated troponin. She denies CP and her SOB has been mild. The pt states that she had a similar episode while living in [place] a few years ago. she converted to a sinus rhythm spontaneously at the time. She states she has palpitations occasionally and attributes them to fracking activity taking place near her house. HOSPITAL COURSE: The patient was admitted to Telemetry, and was given Tamiflu for her flu-like sx. She was reviewed by Cardiology who felt her rhythm was atrial fibrillation, though she converted back to NSR. She declined anticoagulation and rate controlling medications. She also had very hoarse breath sounds with diffuse wheeze and rhonchi. She declined any course of oral steroids but agreed to Advair. She reportedly felt better with Advair and was discharged home in good condition. Paroxysmal atrial fibrillation - Converted to sinus rhythm after cardioversion in ER, remained in it by DC - CHADS-VASc score 1 -> 0.6% stroke risk per year. Patient declines anticoagulation regardless, as well as declines Cardizem. - Heparin drip stopped per pt request. Pt reports she understands and accepts the risk of stroke, arrhythmia, or . Influenza A on background of mild intermittent asthma, causing acute asthma exacerbation - Continue Tamiflu 75mg BID x 5 days - Droplet precautions - Flutter valve and cough lozenges ordered - Recommend oral prednisone for her poor air entry on exam - pt declined - Started on Advair which pt had been on before - Pt ambulated in hallways without dropping oxygen saturations Urinary tract infection, E Coli - Confirmed by culture, resistant to Ampicillin - Will tx with Bactrim PO x 5 days Hypokalemia, resolved - K+ 4.0 today after supplementation Complex regional pain syndrome - Continue home gabapentin - Continue home oxycontin 60mg TID - PDMP reviewed: Pt gets Oxycodone 20mg q4h (180 tab per month) and Oxycontin 60mg TID. Daily MME 330mg. VTE: SCDs Dispo: DC home. Will provide evening doses of medication prior to DC. Code status: Full Resident Physician Supervision Note: I interviewed and examined the patient. Discussed with Dr. Pappas and agree with findings and plan as documented in the note. Any exceptions or clarifications are listed here: None Patient improved however her asthma still significant. This is likely because she is declined the use of steroids. The patient however feels comfortable to go home. Vital signs show temp 36 7 pulse 55 respiration rate 19 BP 110/73 Her lungs have good air movement bilateral she still has some rhonchi and expiratory wheezes Patient be discharged home on inhaled medications of duo nebs and Advair with recommended close follow-up with her primary care provider as mentioned above she is continued to be treated for the influenza that was confirmed and a urinary tract infection she will need a few more days of treatment for each as listed above Documented By: Lefty Tapia Total Time Spent: Greater than 30 minutes This includes examination of the patient, discharge planning, medication reconciliation, and communication with other providers. Discharge Instructions Please refer to the electronic Patient Visit Report (Discharge Instructions) for additional information. Follow-Up Dr. Baljeet Blevins (PCP) on Sunday 07/30 at 9:00 am Additional Copies To Baljeet Blevins D.O. Resident Tracking Resident Involvement: Resident Care Provided Care Provided: Adult Hospital Medicine
[2017-07-24] MEDS ORDERED: SULF-302 PO (10:59)
[2017-07-24] MEDS ORDERED: ADVIN25050 INH (10:59)
[2017-07-24 15:00] VITALS: BP 118/74; PULSE 67; TEMP 36.8; O2SAT 97
[2017-07-24] MEDS: OXYCODONE HCL IR 5 MG TAB (IMMEDIATE RELEASE) PO PRN (16:07)
[2017-07-24] MEDS ORDERED: SULFAMETHOXAZOLE/TRIMETHOPRIM DS 800/160MG TAB PO SCH (18:00)
[2017-07-24 18:49] VITALS: BP 118/74; PULSE 67; TEMP 36.8; O2SAT 97
== END 2017-07-24 19:30 | disposition home or self-care (01) | DRG 309 ==
LOC: C.EDB 19:10 → ENRESERV 21:32 → CANRESERV 21:32 → CANBEDREQ 21:44 → C.2E 21:53 → ENRESERV 22:40 → EDBEDREQ 07-23 13:28 → ENRESERV 07-23 13:54 → C.MSW 07-23 15:23
PROVIDERS: ADMIT Internal Medicine; ATTEND Family Medicine
DX: I48.0 Paroxysmal atrial fibrillation (principal); G90.50 Complex regional pain syndrome I, unspecified; N39.0 Urinary tract infection, site not specified; J10.1 Influenza due to other identified influenza virus with other respiratory manifestations; E87.6 Hypokalemia; I47.1 Supraventricular tachycardia; I48.92 Unspecified atrial flutter; J45.909 Unspecified asthma, uncomplicated; A49.8 Other bacterial infections of unspecified site; Z96.652 Presence of left artificial knee joint; Z87.891 Personal history of nicotine dependence; Z79.82 Long term (current) use of aspirin; Z88.8 Allergy status to other drugs, medicaments and biological substances

== ENCOUNTER → 2017-08-02 | Outpatient (CLI) | payer OTHER ==
[~2017-08-02] MED LIST: ADVIN25050 INH; ASPI81TA28 PO; GABA-113 PO; NRN300 PO; OSEL75CA16 PO; OXYC20TA50 PO; OXYC60TA8 PO; SULF-302 PO
== END | disposition home or self-care (01) ==
LOC: C.PAPS 11:23
PROVIDERS: ATTEND Nurse Practitioner Family
DX: Z01.419 Encounter for gynecological examination (general) (routine) without abnormal findings (principal); Z87.42 Personal history of other diseases of the female genital tract

== ENCOUNTER → 2017-08-02 | Outpatient (CLI) | payer OTHER ==
[2017-08-02 12:14] LABS: BASO % 0.9 %; BASO ABS # 0.04 K/uL (0-0.2); EOS % 1.4 %; EOS ABS # 0.06 K/uL (0-0.5); HEMATOCRIT 37.8 % (37-47); HEMOGLOBIN 12.1 g/dL (12.0-16.0); LYMPH % 25.4 %; LYMPH ABS # 1.08 K/uL (1.2-3.4); MEAN CELL VOLUME 82.2 fL (80-100); MEAN CORPUSCULAR HEMOGLOBIN 26.3 pg (25-34); MEAN PLATELET VOLUME 9.9 fL (7.4-10.4); MONO % 8.9 %; MONO ABS # 0.38 K/uL (0.11-0.59); NEUT % 63.4 %; PLATELET COUNT 274 K/uL (130-400); RED CELL DISTRIBUTION WIDTH SD 48.6 fL (36.4-46.3); WHITE BLOOD COUNT 4.26 K/uL (4.8-10.8)
[2017-08-02 12:34] LABS: ALBUMIN 3.7 gm/dl (3.4-5.0); ALT/SGPT 21 U/L (12-78); BLOOD UREA NITROGEN 15 mg/dl (7-18); CALCIUM 8.9 mg/dl (8.5-10.1); CARBON DIOXIDE 25 mmol/L (21-32); CHOLESTEROL 190 mg/dl (0-200); CREATININE 0.66 mg/dl (0.60-1.20); GLUCOSE 76 mg/dl (70-99); POTASSIUM 3.9 mmol/L (3.5-5.1); SODIUM 140 mmol/L (136-145)
[2017-08-02 12:45] LABS: ALKALINE PHOSPHATASE 70 U/L (45-117); AST/SGOT 16 U/L (15-37); LDL CHOLESTEROL CALCULATED 105 mg/dl; TOTAL PROTEIN 6.8 gm/dl (6.4-8.2)
== END | disposition home or self-care (01) ==
LOC: C.LAB1850 10:05
PROVIDERS: ATTEND Neuromusculoskeletal Medicine & OMM
DX: Z13.220 Encounter for screening for lipoid disorders (principal); Z13.1 Encounter for screening for diabetes mellitus

== ENCOUNTER → 2017-08-16 | Outpatient (CLI) | payer OTHER ==
[~2017-08-16] MED LIST changes: +BACL10TA PO; +Lidocaine patch
--- NOTE | 2017-08-16 12:51 | DIAGNOSTIC IMAGING REPORT ---
L KNEE 1 OR 2 VIEWS ROUTINE CLINICAL HISTORY: L KNEE PAIN pain COMPARISON: None. DISCUSSION: Evidence for a total left knee arthroplasty. Subtle lucency developing between the femoral prosthetic and underlying femur. Less prominent findings of lucency between the tibial prosthetic and lateral tibial plateau. General bone osteopenia/osteoporosis. There is no evidence for soft tissue swelling. 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 The above report was generated using voice recognition software. It may contain grammatical, syntax or spelling errors. Electronically signed by: Ranulfo Garland M.D. 08/16/2017 12:50 PM Dictated Date/Time: 08/16/2017 12:48 PM
== END | disposition home or self-care (01) ==
LOC: C.RADBC 12:24
PROVIDERS: ATTEND Physician Assistant Medical
DX: M25.562 Pain in left knee (principal)

== ENCOUNTER 2024-06-18 09:23 | Inpatient (IN) ==
[2024-06-18] MEDS ORDERED: KETAMINE HCL IV ONE (10:04)
[2024-06-18] MEDS ORDERED: SODIUM CHLORIDE 0.9% IV ONE (10:04)
[2024-06-18 10:19] LABS: iSTAT Creatinine 0.6 mg/dl (0.6-1.3); iSTAT Hemoglobin 13.9 g/dl (12.0-16.0); iSTAT Ionized Calcium 1.16 mmol/l (1.12-1.32); iSTAT Potassium 3.6 mmol/L (3.3-5.0)
--- NOTE | 2024-06-18 10:28 | Emergency Department Note ---
Impression & Plan Atrial fibrillation with rapid ventricular response, Acute chest wall pain, Hematoma of right hip ED Provider Note HISTORY OF PRESENT ILLNESS: Patient is a 69-year-old female presenting with right chest wall pain and right hip pain. Patient reports she tripped and fell a week ago. She states she went to [facility] and they were going to transfer her because "they said I was on stable" but she did not want to be transferred to an outside facility. She states that over the last week she has had progressively worsening pain and shortness of breath. States that she cannot get comfortable at night and cannot lay flat secondary to pain on her right chest wall. Reports she is unable to take normal, deep breaths, as it is too painful. She is on a baby aspirin daily. She has a history of A-fib. She tripped and fell and landed on her right side and struck the right side of her face and right hip. She reports she has had a large hematoma to her right hip that has improved slightly and swelling, but now her bilateral legs are edematous. She denies any dysuria or hematuria. Denies any abdominal pain. Patient reports that she is currently on Subutex for previous history of OxyContin addiction. ROS: as above PHYSICAL EXAM: Constitutional: Patient appears in no acute distress. HENT: Head: Normocephalic. Noted to have green and dark purple appearing ecchymosis to the right periorbital, right maxillary and right forehead region. Eyes: EOMI, PERRL Mouth/Throat: Mucous membranes moist. Neck: Trachea midline. Neck supple. Cardiovascular: Tachycardic with irregularly irregular rhythm. No murmurs, rubs or gallops. Intact distal pulses. Pulmonary/Chest: No respiratory distress. Breath sounds clear and equal bilaterally. No wheezes or rales. Patient is having shunted breathing. She has tenderness to palpation overlying the right chest. No obvious flail chest or ecchymosis overlying the chest. Abdominal: Abdomen soft, no tenderness, rebound or guarding. Musculoskeletal: No tenderness or deformity noted. +2 pitting edema of bilateral lower extremities. Patient is noted to have a large hematoma with overlying ecchymosis to the right lateral hip. Patient has scattered bruising down the right leg which appears to be originating from the hematoma. Skin: Warm and dry. No rash, erythema, pallor or cyanosis Psychiatric: Appropriate mood and affect for situation. Neurological: Alert and keenly responsive. CN II-XII grossly intact, moving all extremities equally and fully. MDM: - Vitals signs showed tachycardia - History obtained via patient. History as above. - Chronic conditions affecting care: atrial fibrillation; LAUREEN; cervical cancer - Differential diagnoses include, but are not limited to: hemothorax; pneumothorax; rib fractures; intra-abdominal hemorrhage; ACS; electrolyte abnormality - Order placed for continuous cardiac monitoring. At this time, monitor showed rate of 167 bpm with irregular rhythm, per my interpretation. - External medical records reviewed. Documentation from [facility] dated 06/10/2024 was reviewed. Patient was seen after tripping and falling. She was documented to have " accidental fall, pleural effusion, cardiomegaly, A-fib with RVR, hypotension, facial contusion, right hip hematoma." Per heart rate at their facility was the low 100s to 130s. - EKG interpreted by myself showed atrial fibrillation. Rate tachycardic at 160 bpm. QT 250. No acute ischemic changes. - Laboratory workup interpreted by myself showed leukopenia (WBC 4.29); normal hemoglobin; normal PT/INR; stable electrolytes; normal lactate; normal troponin; elevated BNP (457); normal lipase - CXR shows what looks like a right sided pleural effusion, per my interpretation. - CT chest with IV contrast showed small right pleural effusion. Radiology reports this looks like fluid rather than hemothorax. - CT abdomen/pelvis with IV contrast showed soft tissue hematoma to the right hip without any underlying fracture. - Type and screen ordered - Given patient's opioid abuse history, IV ketamine 0.1 mg/kg ordered for pain control - Patient's HR made elevated and blood pressure was borderline hypotensive. She did drop to 80s over 60s at 1 point, but she was mentating well and on reassessment blood pressure was up into the 90s. Patient was given a total of 1 L normal saline with pressures in the 90s over 60s. She given an amnio bolus and started on amiodarone drip with improvement in heart rate down to the 120s 140s region. - Discussed case with [facility] quality systems specialist on-call, Dr. Pham, at 12:05. He reports that patient's blood pressures are low, she would meet indication for cardioversion. However, on reassessment patient's blood pressure is 100 systolic. - Discussion was had with sample case porter about patient's case and need for admission - Hospitalist consulted for admission - Patient admitted to [facility] service for further evaluation and management. I have personally spent 48 minutes of critical care time in the direct management of this patient. This includes bedside care, interpretation of diagnostic studies, and testing, discussion with consultants, patient, and family members, and other required patient management activities. This 48 minutes is in excess of all separately billable procedures. ASSESSMENT AND PLAN: Diagnosis: Afib with RVR; acute right chest wall pain; right hip hematoma Plan: admit Past Med/Surg History Problem List (Updated 06/18/24 @ 12:46 by Sara Aviles MD) Hematoma of right hip (Acute) Acute chest wall pain (Acute) Atrial fibrillation with rapid ventricular response (Acute) Malaise Dry mouth, unspecified Weight loss S/P gastric bypass Atrial fibrillation History of colon polyps Ambulatory dysfunction Vitamin D deficiency Urinary incontinence Status post placement of implantable loop recorder Pulmonary nodules Postural imbalance Palpitations PVC (premature ventricular contraction) PSVT (paroxysmal supraventricular tachycardia) Osteopenia LVH (left ventricular hypertrophy) Hydronephrosis Chronic pain due to trauma Chronic narcotic use Atrophy, kidney Osteoporosis Nocturnal hypoxemia Obesity Moderate obstructive sleep apnea does not use device Atrial fibrillation s/p cardioversion 07/2017-ASA only Medical History Atrial fibrillation Atrial fibrillation Cervical cancer CRPS (complex regional pain syndrome) Iron deficiency anemia following bariatric surgery Moderate obstructive sleep apnea No blood products Opiate dependence Opioid dependence Sepsis Tinnitus of both ears Surgical History History of adenoidectomy History of appendectomy History of cardioversion History of carpal tunnel surgery of left wrist History of colonoscopy with polypectomy (~2017) History of dilatation and curettage History of esophagogastroduodenoscopy (EGD) History of gastric bypass History of herniorrhaphy History of laminectomy History of loop recorder History of repair of rotator cuff History of surgery History of tonsillectomy History of tooth extraction History of total knee replacement Status post panniculectomy Status post total replacement of hip Family History Mother Vaginal cancer Family history of diabetes mellitus Aunt Family history of diabetes mellitus Grandmother (Maternal) Family history of diabetes mellitus Breast cancer Grandfather (Maternal) Family history of diabetes mellitus Other No family history of adverse response to anesthesia Denies family history of Prostate cancer Myocardial infarction Colorectal cancer Social History Smoking Status: Never smoker Age Quit Using Tobacco: 27; Second Hand Exposure: Yes ( A CHILD); Do You Dip or Chew Tobacco: No; Hx Alcohol Use: No Hx Substance Use: No Preferred Language: Sinhala Communication Ability: Effective Doorkeeper Required: No Beliefs That Will Affect Care: None marital status: Current Living Situation: Spouse current occupational status: retired Feels Safe at Home: Yes Dental Care, Regularly: Yes Physical Activity Frequency Comment: limited due to hip- fracture of pelvis last year Assistive Devices: None Allergies Allergies Allergy/AdvReac Type Severity Reaction Status Date / Time aminophylline Allergy Intermediate hives Verified 02/03/22 12:30 Home Meds Home Medications Medication Instructions Recorded Confirmed aspirin 81 mg tablet,delayed 81 mg PO QAM 03/19/18 06/18/24 release (Abhilash Low Dose Aspirin) fluticasone 250 mcg-salmeterol 50 1 inh inhalation BID PRN Shortness 03/19/18 06/18/24 mcg/dose blistr powdr for Of Breath inhalation (Advair Diskus) buprenorphine 8 mg-naloxone 2 mg 0.5 tab sublingual QID 11/08/18 06/18/24 sublingual tablet dandelion 1 tab PO UD 04/30/19 06/18/24 hawthorn 1 ea PO UD 04/30/19 06/18/24 cholecalciferol (vitamin D3) 50 2,000 units PO UD 04/08/21 06/18/24 mcg (2,000 unit) capsule Previous Rx's Medication Instructions Recorded crutch #2 ea 12/23/18 blood-glucose meter (OneTouch #1 ea 02/08/22 Verio Reflect Meter) blood sugar diagnostic (OneTouch #100 ea 02/10/22 Verio test strips) flash glucose sensor (FreeStyle #2 ea 02/10/22 Afia 2 Sensor kit) lancets 33 gauge (Leilani Joseph #100 ea 02/10/22 Lancets) Results & Data (ED) Vital Signs Vital Signs - 24 hr 06/18/24 09:40 06/18/24 10:06 06/18/24 10:08 Temperature 36.7 C Temperature Source Temporal Artery Scan Pulse Rate 133 H 169 H Pulse Rate [Apical] 147 H Pulse Rhythm [Apical] Pulse Strength [Apical] Respiratory Rate 18 16 Respiratory Effort / Characteristics Non-Labored Spontaneous Non-Labored Spontaneous Respiratory Depth Normal Normal Respiratory Pattern Blood Pressure 119/73 Blood Pressure [Left Arm] 100/71 Blood Pressure Mean 88 Blood Pressure Mean [Left Arm] 80 Blood Pressure Position Sitting Blood Pressure Position [Left Arm] Pulse Oximetry 96 95 Oxygen Delivery Method Room Air Room Air Oxygen Flow Rate Sepsis Recent Fever Within 48 Hours No Sepsis New/Unexplained Change in Mental Status No Sepsis Action Taken by Nursing No Action Required End Tidal CO2 (18-54mmHg) Oxygen Flow Rate - Titration Pulse Oximetry Post Tiitration 06/18/24 10:12 06/18/24 10:30 06/18/24 10:36 Temperature Temperature Source Pulse Rate Pulse Rate [Apical] 146 H 153 H Pulse Rhythm [Apical] Regular Pulse Strength [Apical] Normal Respiratory Rate 12 14 Respiratory Effort / Characteristics Non-Labored Spontaneous Non-Labored Respiratory Depth Normal Normal Respiratory Pattern Regular Regular Blood Pressure Blood Pressure [Left Arm] 102/62 100/74 91/45 L Blood Pressure Mean Blood Pressure Mean [Left Arm] 75 82 60 Blood Pressure Position Blood Pressure Position [Left Arm] Lying Pulse Oximetry 96 96 Oxygen Delivery Method Nasal Cannula Room Air Oxygen Flow Rate 2 Sepsis Recent Fever Within 48 Hours Sepsis New/Unexplained Change in Mental Status Sepsis Action Taken by Nursing End Tidal CO2 (18-54mmHg) 40 40 Oxygen Flow Rate - Titration Pulse Oximetry Post Tiitration 06/18/24 10:41 06/18/24 10:46 06/18/24 11:01 Temperature Temperature Source Pulse Rate Pulse Rate [Apical] 147 H 155 H 159 H Pulse Rhythm [Apical] Pulse Strength [Apical] Respiratory Rate 17 15 18 Respiratory Effort / Characteristics Non-Labored Respiratory Depth Normal Normal Respiratory Pattern Regular Blood Pressure Blood Pressure [Left Arm] 91/45 L 88/51 L 92/63 L Blood Pressure Mean Blood Pressure Mean [Left Arm] 60 63 72 Blood Pressure Position Blood Pressure Position [Left Arm] Pulse Oximetry 95 94 95 Oxygen Delivery Method Room Air Room Air Room Air Oxygen Flow Rate Sepsis Recent Fever Within 48 Hours Sepsis New/Unexplained Change in Mental Status Sepsis Action Taken by Nursing End Tidal CO2 (18-54mmHg) 40 36 Oxygen Flow Rate - Titration Pulse Oximetry Post Tiitration 06/18/24 11:54 06/18/24 12:00 06/18/24 13:00 Temperature Temperature Source Pulse Rate Pulse Rate [Apical] 167 H 145 H Pulse Rhythm [Apical] Pulse Strength [Apical] Respiratory Rate 18 16 Respiratory Effort / Characteristics Respiratory Depth Respiratory Pattern Blood Pressure Blood Pressure [Left Arm] 96/60 L 85/62 L Blood Pressure Mean Blood Pressure Mean [Left Arm] 72 69 Blood Pressure Position Blood Pressure Position [Left Arm] Pulse Oximetry 89 L 98 96 Oxygen Delivery Method Room Air Nasal Cannula Nasal Cannula Room Air Oxygen Flow Rate 0 2 0 Sepsis Recent Fever Within 48 Hours Sepsis New/Unexplained Change in Mental Status Sepsis Action Taken by Nursing End Tidal CO2 (18-54mmHg) Oxygen Flow Rate - Titration 2 Pulse Oximetry Post Tiitration 97 06/18/24 13:10 Temperature Temperature Source Pulse Rate Pulse Rate [Apical] Pulse Rhythm [Apical] Pulse Strength [Apical] Respiratory Rate Respiratory Effort / Characteristics Respiratory Depth Respiratory Pattern Blood Pressure Blood Pressure [Left Arm] 112/73 Blood Pressure Mean Blood Pressure Mean [Left Arm] 86 Blood Pressure Position Blood Pressure Position [Left Arm] Pulse Oximetry Oxygen Delivery Method Oxygen Flow Rate Sepsis Recent Fever Within 48 Hours Sepsis New/Unexplained Change in Mental Status Sepsis Action Taken by Nursing End Tidal CO2 (18-54mmHg) Oxygen Flow Rate - Titration Pulse Oximetry Post Tiitration Laboratory Data 06/18/24 10:00 06/18/24 10:00 Lab Results 06/18/24 06/18/24 06/18/24 Range/Units 10:00 10:08 10:22 WBC 4.29 L (4.8-10.8) K/ul RBC 4.49 (4.20-5.40) M/uL Hgb 12.8 (12.0-16.0) g/dl POC Hgb 13.9 (12.0-16.0) g/dl Hct 38.9 (37.0-47.0) % POC Hct 41 (37-47) % MCV 86.6 (80.0-100.0) fL MCH 28.5 (25.0-34.0) pg MCHC 32.9 (32.0-36.0) g/dL RDW Std Deviation 49.4 H (36.4-46.3) fL RDW Coeff of Hetal 16.0 H (11.5-14.5) % Plt Count 240 (130-400) K/uL MPV 9.9 (9.4-12.4) fL Immature Gran % (Auto) 0.2 % Neut % (Auto) 68.6 % Lymph % (Auto) 20.5 % [place] % (Auto) 9.1 % Eos % (Auto) 0.9 % Baso % (Auto) 0.7 % Neut # (Auto) 2.94 (1.40-6.50) K/uL Lymph # (Auto) 0.88 L (1.20-3.40) K/uL [place] # (Auto) 0.39 (0.11-0.59) K/uL Eos # (Auto) 0.04 (0.00-0.50) K/uL Baso # (Auto) 0.03 (0.00-0.20) K/uL Immature Gran # (Auto) 0.01 (0.01-0.20) K/uL PT 11.0 (9.0-12.0) Seconds INR 1.0 (0.9-1.1) POC Sodium 141 (135-144) mmol/L Sodium 141 (136-145) mmol/L POC Potassium 3.6 (3.3-5.0) mmol/L Potassium 3.8 (3.5-5.1) mmol/L POC Chloride 107 (101-112) mmol/L Chloride 107 (98-107) mmol/L Carbon Dioxide 27 (21-32) mmol/L POC Total CO2 22 L (24-31) mmol/L Anion Gap 7 (3-11) POC Anion Gap 16.0 (16-25) mmol/L POC BUN 17 (7-18) mg/dl BUN 17 (6-23) mg/dl Creatinine 0.57 L (0.6-1.2) mg/dl POC Creatinine 0.6 (0.6-1.3) mg/dl Est Cr Clr Drug Dosing 91.4 ml/min eGFR 97.10 BUN/Creatinine Ratio 29.8 H (10-20) Glucose 94 (70-99(Fasting)) mg/dl POC Glucose (other) 93 (70-99) mg/dl Lactate (0.4-2.0) mmol/L Calcium 9.7 (8.6-10.3) mg/dl POC Ioniz Calcium [place] 1.16 (1.12-1.32) mmol/l Total Bilirubin 0.8 (0.2-1.0) mg/dl AST 23 (13-39) U/L ALT 15 (7-52) U/L Alkaline Phosphatase 57 (34-104) U/L Troponin I High Sens 3.4 (0-14) pg/ml B-Natriuretic Peptide 457 H (0-100) pg/ml Total Protein 6.8 (6.0-8.3) gm/dl Albumin 4.3 (3.4-5.0) gm/dl Globulin 2.5 (2.5-4.0) gm/dl Albumin/Globulin Ratio 1.7 (0.9-2) Lipase 19 (11-82) U/L Blood Type O Positive Antibody Screen NEGATIVE 06/18/24 Range/Units 11:46 WBC (4.8-10.8) K/ul RBC (4.20-5.40) M/uL Hgb (12.0-16.0) g/dl POC Hgb (12.0-16.0) g/dl Hct (37.0-47.0) % POC Hct (37-47) % MCV (80.0-100.0) fL MCH (25.0-34.0) pg MCHC (32.0-36.0) g/dL RDW Std Deviation (36.4-46.3) fL RDW Coeff of Hetal (11.5-14.5) % Plt Count (130-400) K/uL MPV (9.4-12.4) fL Immature Gran % (Auto) % Neut % (Auto) % Lymph % (Auto) % [place] % (Auto) % Eos % (Auto) % Baso % (Auto) % Neut # (Auto) (1.40-6.50) K/uL Lymph # (Auto) (1.20-3.40) K/uL [place] # (Auto) (0.11-0.59) K/uL Eos # (Auto) (0.00-0.50) K/uL Baso # (Auto) (0.00-0.20) K/uL Immature Gran # (Auto) (0.01-0.20) K/uL PT (9.0-12.0) Seconds INR (0.9-1.1) POC Sodium (135-144) mmol/L Sodium (136-145) mmol/L POC Potassium (3.3-5.0) mmol/L Potassium (3.5-5.1) mmol/L POC Chloride (101-112) mmol/L Chloride (98-107) mmol/L Carbon Dioxide (21-32) mmol/L POC Total CO2 (24-31) mmol/L Anion Gap (3-11) POC Anion Gap (16-25) mmol/L POC BUN (7-18) mg/dl BUN (6-23) mg/dl Creatinine (0.6-1.2) mg/dl POC Creatinine (0.6-1.3) mg/dl Est Cr Clr Drug Dosing ml/min eGFR BUN/Creatinine Ratio (10-20) Glucose (70-99(Fasting)) mg/dl POC Glucose (other) (70-99) mg/dl Lactate 1.0 (0.4-2.0) mmol/L Calcium (8.6-10.3) mg/dl POC Ioniz Calcium [place] (1.12-1.32) mmol/l Total Bilirubin (0.2-1.0) mg/dl AST (13-39) U/L ALT (7-52) U/L Alkaline Phosphatase (34-104) U/L Troponin I High Sens (0-14) pg/ml B-Natriuretic Peptide (0-100) pg/ml Total Protein (6.0-8.3) gm/dl Albumin (3.4-5.0) gm/dl Globulin (2.5-4.0) gm/dl Albumin/Globulin Ratio (0.9-2) Lipase (11-82) U/L Blood Type Antibody Screen Administered Medications Amiodarone HCl/Dextrose (Nexterone / D5w) 360 mg in 200 mls @ 33.333 mls/hr IV ONE ONE Stop: 06/18/24 18:21 Last Admin: 06/18/24 12:32 Dose: 1 mg/min, 33.3 mls/hr Documented By: REGINE Co-signed By: UMM Discontinued Medications Amiodarone HCl (Amiodarone Iv Bolus & Drip) 1 each IV NOW STA; Protocol Stop: 06/18/24 12:13 Last Admin: 06/18/24 12:26 Dose: Not Given Documented By: UMM Ketamine HCl 10 mg/ Sodium (Chloride) 50.2 mls @ 301.2 mls/hr IV NOW ONE Stop: 06/18/24 10:24 Last Infusion: 06/18/24 10:41 Dose: Infused Documented By: MIS Co-signed By: REGINE Admin: 06/18/24 10:31 Dose: 301.2 mls/hr Documented By: MIS Co-signed By: SHAMAR Sodium Chloride (Nss) 500 mls @ 999 mls/hr IV .Q31M ONE Stop: 06/18/24 12:13 Last Infusion: 06/18/24 12:24 Dose: Infused Documented By: Admin: 06/18/24 11:45 Dose: 999 mls/hr Documented By: REGINE Sodium Chloride (Nss) 1,000 mls @ 999 mls/hr IV .Q1H1M ONE Stop: 06/18/24 12:51 Last Admin: 06/18/24 13:31 Dose: 999 mls/hr Amiodarone HCl/Dextrose (Nexterone / D5w) 150 mg in 100 mls @ 600 mls/hr IV NOW STA Stop: 06/18/24 12:21 Last Infusion: 06/18/24 12:37 Dose: Infused Documented By: UMM Co-signed By: REGINE Admin: 06/18/24 12:17 Dose: 600 mls/hr Documented By: REGINE Co-signed By: UMM Ioversol (Optiray 320 100ml) 94 ml IV ONCE ONE Stop: 06/18/24 11:02 Last Admin: 06/18/24 11:01 Dose: 94 ml Documented By: LEE Labetalol HCl (Labetalol Hcl Iv 5 Mg/Ml 20ml) 5 mg IV NOW STA Stop: 06/18/24 11:28 Last Admin: 06/18/24 12:26 Dose: Not Given Documented By: UMM Miscellaneous (Stat Iv Infusion Titration Per Protocol) 1 each N/A NOW STA Stop: 06/18/24 12:13 Last Admin: 06/18/24 12:26 Dose: Not Given Documented By: SW Imaging Data Radiologist's Impression: Chest X-Ray 06/18/24 09:46 XR chest 1V portable CLINICAL HISTORY: R rib pain s/p fall COMPARISON STUDY: 12/14/2021 FINDINGS: Stable pacemaker. Stable small hiatal hernia. Stable mild cardiomegaly without pulmonary vascular congestion. Inspiration is shallow. There is interval stranding opacity in the lung bases with partial obscuration of the diaphragm. No pleural effusion or pneumothorax. No grossly displaced rib fracture seen. IMPRESSION: Atelectasis versus early pneumonia in the lung bases. No other acute findings seen. ACT 112: Negative or not required by law. Electronically signed by: Brandon Nix M.D. 06/18/2024 10:24 AM Abdomen/Pelvis CT 06/18/24 10:[address] WITH IV CONTRAST CT DOSE: 1977.33 mGy.cm HISTORY: fall from standing; R hip hematoma TECHNIQUE: Multiaxial CT images of the abdomen and pelvis were performed following the IV administration of 90 cc of Optiray, A dose lowering technique was utilized adhering to the principles of ALARA. COMPARISON STUDY: 11/18/2017 FINDINGS: There is a small right pleural effusion. There is a small hiatal hernia. ABDOMEN: There are multiple gallstones without evidence of acute cholecystitis. There is mild dilatation of the common bile duct measuring 1 cm diameter. Otherwise the liver, spleen, pancreas, and adrenal glands are unremarkable. Kidneys show no hydronephrosis or calculi. There is a tiny cyst of the left kidney. There are scattered atherosclerotic calcifications. No abdominal aortic aneurysm. Pelvis: Uterus is not well seen. No adnexal mass seen. Urinary bladder is nondistended. There is extensive sigmoid diverticulosis. No acute diverticulitis. There is a large amount of retained stool. No bowel inflammation or obstruction. No enlarged adenopathy. Osseous structures: There is a 8 cm oval increased echogenicity finding in the superficial soft tissues lateral to the right hip consistent with soft tissue hematoma. There is chronic-appearing height loss at the L1 vertebral body. There is severe diffuse lumbar degenerative disc disease. Left hip prosthesis is present. No acute fracture seen at the visualized osseous structures. IMPRESSION: 1. Soft tissue hematoma lateral to the right hip with no underlying fracture seen. 2. Gallstones without evidence of acute cholecystitis. Mild dilatation of the common bile duct. 3. No other acute findings seen.. ACT 112: Negative or not required by law. The above report was generated using voice recognition software. It may contain grammatical, syntax or spelling errors. Electronically signed by: Brandon Nix M.D. 06/18/2024 11:[address] 06/18/24 10:[address] WITH CONTRAST CT DOSE: 1977.33 HISTORY: fall from standing; SOB; R rib pain TECHNIQUE: Multiaxial CT images of the chest were performed following the IV administration of Optiray 320. A dose lowering technique was utilized adhering to the principles of ALARA. Sagittal and coronal reconstructions were done. COMPARISON STUDY: 04/09/2019 FINDINGS: There is a small right pleural effusion present. There is no rib fracture identified. There is a compression fracture of L1 which appears to have been present in 2019. It is associated with secondary degenerative change, slight retropulsion, and hypertrophic posterior elements all of which combine to result in a spinal canal stenosis at L1. There is mild compressive atelectasis at the right lung base associated with pleural fluid. No additional infiltrate. There is no pneumothorax. The heart is enlarged. There is a pacemaker in place. There is no evidence of pericardial effusion. There are severe degenerative changes involving both shoulder joints. The available upper abdominal images are noncontributory. IMPRESSION: Small right pleural effusion. CT number suggests this is fluid rather than hemothorax. Cardiomegaly is present. No definite evidence of acute rib fracture. L1 compression fracture associated with spinal stenosis appears to be unchanged when compared with 2019. ACT 112: Negative or not required by law. Electronically signed by: Minal Joya M.D. 06/18/2024 11:22 AM Discharge Plan Visit Data Chief Complaint: Fall Stated Complaint: FELL, HURTS TO BREATH ED Provider: Sara Aviles Discharge Problem: Atrial fibrillation with rapid ventricular response, Acute chest wall pain, Hematoma of right hip Forms Stand Alone Forms: Dress Code Prescriptions Prescriptions: No Action (DME) crutch misc See Dose Instructions .ROUTE .MEDSUPPLY Qty: 2 0RF Dose Instruction: As directed Rx Instructions: FOREARM CRUTCHES (DME) blood-glucose meter [OneTouch Verio Reflect Meter] Misc See Rx Instructions .Route Qty: 1 0RF Rx Instructions: Test blood sugars once a day (DME) OneTouch Verio test strips Strip See Rx Instructions .Route Qty: 100 1RF Rx Instructions: check blood sugar once daily (DME) lancets [OneTouch Delica Lancets] 33 gauge misc See Rx Instructions .Route Qty: 100 1RF Rx Instructions: check blood sugar once daily (DME) FreeStyle Afia 2 Sensor Kit See Rx Instructions .Route Qty: 2 0RF Rx Instructions: use to monitor blood sugar readings hawthorn 1 ea PO UD Rx Instructions: takes when she thinks about it dandelion 1 tab PO UD Rx Instructions: takes when she thinks about it and has them aspirin [Abhilash Low Dose Aspirin] 81 mg Tablet,Delayed Release (Dr/Ec) 81 mg PO QAM fluticasone propion-salmeterol [Advair Diskus] 250-50 mcg/dose Blister With Device 1 inh INHALATION BID PRN (Reason: Shortness Of Breath) buprenorphine-naloxone 8-2 mg Tablet, Sublingual 0.5 tab SUBLINGUAL QID cholecalciferol (vitamin D3) 2,000 unit capsule 2,000 units PO UD Rx Instructions: 2000 u po qam. takes when she thinks about it Referrals Referrals: PCP,NO [Primary Care Provider] -
[2024-06-18] MEDS: KETAMINE HCL 50MG/ML VIAL 10 MG in SODIUM CHLORIDE 0.9% 50 ML IV ONE (10:31)
[2024-06-18 10:44] LABS: Basophils # (auto) 0.03 K/uL (0.00-0.20); Basophils % (auto) 0.7 %; Eosinophils # (auto) 0.04 K/uL (0.00-0.50); Eosinophils % (auto) 0.9 %; Hematocrit (blood only) 38.9 % (37.0-47.0); Hemoglobin 12.8 g/dl (12.0-16.0); Immature Granulocytes # (auto) 0.01 K/uL (0.01-0.20); Immature Granulocytes % (auto) 0.2 %; Lymphocytes # (auto) 0.88 K/uL (1.20-3.40); Lymphocytes % (auto) 20.5 %; Mean Corpuscular Hemoglobin 28.5 pg (25.0-34.0); Mean Corpuscular Hgb Conc 32.9 g/dL (32.0-36.0); Mean Corpuscular Volume 86.6 fL (80.0-100.0); Mean Platelet Volume 9.9 fL (9.4-12.4); Monocytes # (auto) 0.39 K/uL (0.11-0.59); Monocytes % (auto) 9.1 %; Neutrophils # (auto) 2.94 K/uL (1.40-6.50); Neutrophils % (auto) 68.6 %; Platelet Count 240 K/uL (130-400); RDW Standard Deviation 49.4 fL (36.4-46.3); Red Blood Count 4.49 M/uL (4.20-5.40); White Blood Count 4.29 K/ul (4.8-10.8)
[2024-06-18] MEDS: OPTIRAY 320 100ml IV ONE (11:01)
[2024-06-18 11:08] LABS: Albumin Globulin Ratio 1.7 (0.9-2); Albumin Level 4.3 gm/dl (3.4-5.0); BUN Creatinine Ratio 29.8 (10-20); Bilirubin,Total 0.8 mg/dl (0.2-1.0); Calcium 9.7 mg/dl (8.6-10.3); Creatinine Clr Calc Pharmacy 91.4 ml/min; Globulin 2.5 gm/dl (2.5-4.0); Potassium 3.8 mmol/L (3.5-5.1); Total Protein 6.8 gm/dl (6.0-8.3)
[2024-06-18 11:13] LABS: Troponin I High Sensitivity 3.4 pg/ml (0-14)
--- NOTE | 2024-06-18 11:24 | CT Scan Report ---
CHEST CT WITH CONTRAST CT DOSE: 1977.33 HISTORY: fall from standing; SOB; R rib pain TECHNIQUE: Multiaxial CT images of the chest were performed following the IV administration of Optira y 320. A dose lowering technique was utilized adhering to the principles of ALARA. Sagittal and cor onal reconstructions were done. COMPARISON STUDY: 04/09/2019 FINDINGS: There is a small right pleural effusion present. There is no rib fracture identified. There is a compression fracture of L1 which appears to have been present in 2019. It is associated with se condary degenerative change, slight retropulsion, and hypertrophic posterior elements all of which co mbine to result in a spinal canal stenosis at L1. There is mild compressive atelectasis at the right lung base associated with pleural fluid. No additi onal infiltrate. There is no pneumothorax. The heart is enlarged. There is a pacemaker in place. There is no evidence of pericardial effusion. There are severe degenerative changes involving both shoulder joints. The available upper abdominal images are noncontributory. IMPRESSION: Small right pleural effusion. CT number suggests this is fluid rather than hemothorax. Ca rdiomegaly is present. No definite evidence of acute rib fracture. L1 compression fracture associated with spinal stenosis appears to be unchanged when compared with . ACT 112: Negative or not required by law. Electronically signed by: Minal Joya M.D. 06/18/2024 11:22 AM
--- NOTE | 2024-06-18 11:29 | CT Scan Report ---
ABDOMEN AND PELVIS CT WITH IV CONTRAST CT DOSE: 1977.33 mGy.cm HISTORY: fall from standing; R hip hematoma TECHNIQUE: Multiaxial CT images of the abdomen and pelvis were performed following the IV administrat ion of 90 cc of Optiray, A dose lowering technique was utilized adhering to the principles of ALARA. COMPARISON STUDY: 11/18/2017 FINDINGS: There is a small right pleural effusion. There is a small hiatal hernia. ABDOMEN: There are multiple gallstones without evidence of acute cholecystitis. There is mild dilatat ion of the common bile duct measuring 1 cm diameter. Otherwise the liver, spleen, pancreas, and adren al glands are unremarkable. Kidneys show no hydronephrosis or calculi. There is a tiny cyst of the le ft kidney. There are scattered atherosclerotic calcifications. No abdominal aortic aneurysm. Pelvis: Uterus is not well seen. No adnexal mass seen. Urinary bladder is nondistended. There is exte nsive sigmoid diverticulosis. No acute diverticulitis. There is a large amount of retained stool. No bowel inflammation or obstruction. No enlarged adenopathy. Osseous structures: There is a 8 cm oval increased echogenicity finding in the superficial soft tissu es lateral to the right hip consistent with soft tissue hematoma. There is chronic-appearing height l oss at the L1 vertebral body. There is severe diffuse lumbar degenerative disc disease. Left hip pros thesis is present. No acute fracture seen at the visualized osseous structures. IMPRESSION: 1. Soft tissue hematoma lateral to the right hip with no underlying fracture seen. 2. Gallstones without evidence of acute cholecystitis. Mild dilatation of the common bile duct. 3. No other acute findings seen.. ACT 112: Negative or not required by law. The above report was generated using voice recognition software. It may contain grammatical, syntax o r spelling errors. Electronically signed by: Brandon Nix M.D. 06/18/2024 11:28 AM
[2024-06-18] MEDS: SODIUM CHLORIDE 0.9% 500 ML IV ONE ×2 (11:45→13:35)
--- NOTE | 2024-06-18 11:58 | Electrocardiogram Report ---
Test Reason : Blood Pressure : */* mmHG Vent. Rate : 160 BPM Atrial Rate : * BPM P-R Int : * ms QRS Dur : 78 ms QT Int : 250 ms P-R-T Axes : * 56 34 degrees QTcB Int : 407 ms Atrial fibrillation with rapid ventricular response with premature ventricular or aberrantly conducte d complexes Low voltage QRS Poor R wave progression, consider anterior MO vs. lead placement vs. LVH Abnormal ECG When compared with ECG of 14-Dec-2021 17:12, Nonspecific T wave abnormality, worse in Anterior leads Confirmed by Dusty Ramirez ([id number]) on 06/18/2024 11:58:08 AM Referred By: Confirmed By: Dusty Ramirez
[2024-06-18] MEDS ORDERED: 0.2 MICRON FILTER SET 1 EACH IV STA (12:12)
[2024-06-18] MEDS: AMIODARONE / D5W 150 MG/100 ML BAG IV STA (12:17)
[2024-06-18] MEDS: STAT IV Infusion **Titration per Protocol STA (12:26)
[2024-06-18] MEDS: LABETALOL HCL IV 5 MG/ML 20ML IV STA (12:26)
[2024-06-18] MEDS: AMIODARONE IV BOLUS & DRIP IV STA (12:26)
[2024-06-18] MEDS: AMIODARONE / D5W 360 MG/200 ML BAG IV ONE (12:32)
--- OUTSIDE RECORDS SUMMARY | 2024-06-18 12:40 | External Medical Summary ---
Author Name Unknown Address Unknown Organization K01:LABORATORY [facility] [place] - [facility] [address] [place] [address] Laboratory Report Ordering Provider Test Date Status LEX SABILLON 04/22/2024 13:57:39 Final Cutoff Concentrations:
D rug Level
Buprenorphine 5 ng/mL
Norbuprenorphine 15 ng/mL

This test was developed and its performance characteristics determined by [facility]. It has not been cleared or approved by the [place] Food and Drug Administration. Observation Date Value Abnormality Reference (Units) Status METHODOLOGY 04/22/2024 13:57:39 LC-MS/MS Final NORMALIZED BUPRENORPHINE, U (NUMERIC) 04/22/2024 13:57:39 629 (ug/g of Creatinine) Final NORMALIZED NORBUPRENORPHINE, U (NUMERIC) 04/22/2024 13:57:39 2457 (ug/g of Creatinine) Final Creatinine, Urine 04/22/2024 13:57:39 7 (mg/dL) Final Buprenorphine [Mass/volume] in Urine by Confirmatory method 04/22/2024 13:57:39 44 Above high normal Negative (ng/mL) Final Norbuprenorphine [Mass/volume] in Urine by Confirmatory method 04/22/2024 13:57:39 172 Above high normal Negative (ng/mL) Final Performing Location LABORATORY [facility] [place] - [facility] [address] [place] [address]
--- OUTSIDE RECORDS SUMMARY | 2024-06-18 12:40 | External Medical Summary ---
Author Name Unknown Address Unknown Organization K01:[facility]ORY [facility] [place] - [facility] [address] [facility] [address] Laboratory Report Ordering Provider Test Date Status LEX SABILLON 06/10/2024 14:13:27 Final Cutoff Concentrations:
D rug Level
Buprenorphine 5 ng/mL
Norbuprenorphine 15 ng/mL

This test was developed and its performance characteristics determined by [facility]. It has not been cleared or approved by the [place] Food and Drug Administration. Observation Date Value Abnormality Reference (Units) Status METHODOLOGY 06/10/2024 14:13:27 LC-MS/MS Final NORMALIZED BUPRENORPHINE, U (NUMERIC) 06/10/2024 14:13:27 500 (ug/g of Creatinine) Final NORMALIZED NORBUPRENORPHINE, U (NUMERIC) 06/10/2024 14:13:27 2102 (ug/g of Creatinine) Final Creatinine, Urine 06/10/2024 14:13:27 63 (mg/dL) Final Buprenorphine [Mass/volume] in Urine by Confirmatory method 06/10/2024 14:13:27 315 Above high normal Negative (ng/mL) Final Norbuprenorphine [Mass/volume] in Urine by Confirmatory method 06/10/2024 14:13:27 1324 Above high normal Negative (ng/mL) Final Performing Location LABORATORY [facility] [place] - [facility] [address] [facility] [address]
--- OUTSIDE RECORDS SUMMARY | 2024-06-18 12:40 | External Medical Summary ---
Author Name Unknown Address Unknown Organization : Laboratory Report Ordering Provider Test Date Status LEX SABILLON 02/26/2024 13:30:18 Final Observation Date Value Abnormality Reference (Units ) Status Ethyl glucuronide [Mass/volume] in Urine 02/26/2024 13:30:18 NEGATIVE <500 (ng/mL) Final Ethyl sulfate [Mass/volume] in Urine 02/26/2024 13:30:18 NEGATIVE <100 (ng/mL) Final This drug testing is for med ical treatment only.
Analysis was performed as non-forensic testing and
these results should be used only by healthcare
providers to render diagnosis or treatment, or to
monitor progress of medical conditions.
For assistance with interpreting these drug results,
please contact a [facility] [facility]
Specialist: [phone] ( [phone] M-F,
8am-6pm EST.
For additional information, please refer to
http://education.[employer]/faq/KNO466
(This link is being provided for informational/
educational purposes only.)
This test was developed and its analytical performance
characteristics have been determined by [employer]
[place], [place]. It has
not been cleared or approved by the U.[place]. Food and Drug
Administration. This assay has been validated pursuant
to the CLIA regulations and is used for clinical
purposes.

Test Performed at:
[facility]
[id number] [facility]
[place], [place]
Krzysztof Houston M.D., Ph.D.,Director of Laboratories Performing Location
--- OUTSIDE RECORDS SUMMARY | 2024-06-18 12:40 | External Medical Summary ---
Author Name Unknown Address Unknown Organization K01:LABORATORY [facility] - Formerly named [facility] [address] [place] [address] Laboratory Report Ordering Provider Test Date Status LEX SABILLON 02/26/2024 12:46:16 Final Cutoff Concentrations:
D rug Level
Buprenorphine 5 ng/mL
Norbuprenorphine 15 ng/mL

This test was developed and its performance characteristics determined by [employer]. It has not been cleared or approved by the [place] Food and Drug Administration. Observation Date Value Abnormality Reference (Units) Status METHODOLOGY 02/26/2024 12:46:16 LC-MS/MS Final NORMALIZED BUPRENORPHINE, U (NUMERIC) 02/26/2024 12:46:16 300 (ug/g of Creatinine) Final NORMALIZED NORBUPRENORPHINE, U (NUMERIC) 02/26/2024 12:46:16 1700 (ug/g of Creatinine) Final Creatinine, Urine 02/26/2024 12:46:16 8 (mg/dL) Final Buprenorphine [Mass/volume] in Urine by Confirmatory method 02/26/2024 12:46:16 24 Above high normal Negative (ng/mL) Final Norbuprenorphine [Mass/volume] in Urine by Confirmatory method 02/26/2024 12:46:16 136 Above high normal Negative (ng/mL) Final Performing Location LAB[facility]ATORY [facility] - Formerly named [facility] [address] [place] [address]
--- OUTSIDE RECORDS SUMMARY | 2024-06-18 12:40 | External Medical Summary ---
Author Name Unknown Address Unknown Organization K01:LABORATORY [facility] [place] - [address] [place] [address] Laboratory Report Ordering Provider Test Date Status LEX SABILLON 06/10/2024 14:13:27 Final Observation Date Value Abnormality Reference (Units ) Status FORENSIC VALID INTERPRETATION 06/10/2024 14:13:27 Normal Final Creatinine, Urine 06/10/2024 14:13:27 63 (mg/dL) Final Performing Location LABORATORY [facility] - [address] [place] [address]
--- OUTSIDE RECORDS SUMMARY | 2024-06-18 12:40 | External Medical Summary ---
Author Name Unknown Address Unknown Organization K01:LABORATORY [place] [address] [facility] [address] Laboratory Report Ordering Provider Test Date Status LEX SABILLON 02/26/2024 12:46:16 Final Cutoff Concentrations:
Drug Level
Amphetamines 500 ng/mL
Benzodiazepines 100 ng/mL
Cannabinoids 50 ng/mL
Cocaine Metabolite 150 ng/mL
Fentanyl 1 ng/mL
Hydrocodone / Hydromorphone 300 ng/mL
Methadone Metabolite 100 ng/mL
Morphine / Codeine 300 ng/mL
Oxycodone / Oxymorphone 100 ng/mL

Screening results are presumptive and can only be used for medical purposes. Confirmatory testing is available upon request. Observation Date Value Abnormality Reference (Units ) Status Amphetamines, Urine screen 02/26/2024 12:46:16 Negative Negative Final Benzodiazepines, Urine screen 02/26/2024 12:46:16 Negative Negative Final Cannabinoids, Urine screen 02/26/2024 12:46:16 Negative Negative Final Cocaine Metabolite, Urine screen 02/26/2024 12:46:16 Negative Negative Final fentaNYL [Presence] in Urine by Screen method 02/26/2024 12:46:16 Negative Negative Final HYDROcodone [Presence] in Urine by Screen method 02/26/2024 12:46:16 Negative Negative Final 6-Pthcoanvum-9,5-Dimeth yl-3,3-Diphenylpyrrolid ine (EDDP) [Presence] in Urine 02/26/2024 12:46:16 Negative Negative Final Opiates, Urine screen 02/26/2024 12:46:16 Negative Negative Final oxyCODONE [Presence] in Urine by Screen method 02/26/2024 12:46:16 Negative Negative Final Performing Location LAB[facility]ATORY [facility] [place] - [address] [facility] [address]
--- OUTSIDE RECORDS SUMMARY | 2024-06-18 12:40 | External Medical Summary | Summary of Care ---
Author Name Unknown Organization [facility] Address [address] [facility] [place] [address] Phone [phone] Care Team Providers Care Graduate Teaching Associate Name Role Phone Unavailable Primary Care Provider Unavailabl e Reason for Visit * Reason Onset Date Comments Pacemaker Clinic 02/08/2024 Missed transmis lise Encounter Details Date Type Department Care Team (Late st Contact Info) Description 02/08/2024 Telephone Cardiology, [facility] [address] [facility] [place] [address] [place], Pacer Clinic [facility] [address] [facility] [place] [address] Pacemaker Clinic (Missed transmission ) Allergies Active Allergy Reactions Criticality Noted Date Comments Alendronate Other (Please comment) 12/26/2022 Bone pain Aminophylline Hives 03/22/2016 documented as of this encounter (statuses as of 02/08/2024) Medications Medication Sig Dispensed Refills Start Date End Date Status aspirin enteric coated 81 MG TBEC Take 1 Tablet by mouth. 05/31/2016 Active Vitamin D 125 MCG (5000 UT) Oral Capsule Take 5,000 Units by mouth in the morning. Active Probiotic Product (PROBIOTIC ACIDOPHILUS BIOBEADS) Capsule Take 1 Cap by mouth three times a day with meals. Active SURGICAL COMPRESSION STOCKING Compression stockings thigh high compression 20-30mmHg Wear daily 2 Each 2 06/06/2022 Active Cinnamon 500 MG Oral Capsule Take 2 Capsules by mouth in the morning. 60 Capsule 06/26/2022 Active Vitamin A & D [address] UNIT Oral Tablet Take 2 Tablets by mouth daily. 60 Tablet 06/26/2022 Active Vitamin K (Phytonadione) 100 MCG Oral Tablet Take 2,000 mcg by mouth daily. 60 Tablet 06/26/2022 Active Quercetin 50 MG Oral Tablet Take 1 Tablet by mouth daily. 30 Tablet 06/26/2022 Active Collagen Ultra Oral Capsule Take 1 Tablet by mouth daily. 30 Capsule 06/26/2022 Active Krill Oil 500 MG Oral Capsule Take 1 Capsule by mouth in the morning. 30 Capsule 06/26/2022 Active Zinc 20 MG Oral Capsule Take 1 Capsule by mouth in the morning and 1 Capsule at noon and 1 Capsule in the evening. 90 Capsule 06/26/2022 Active CoQ10 200 MG Oral Capsule Take 1 Capsule by mouth daily. 30 Capsule 06/26/2022 Active palmitoylethanolam tana 400 mg OR CAPS Take 300 mg by mouth daily. 30 Capsule 06/26/2022 Active MCT Oil Oral Oil (MCT Oil) Take by mouth daily. 1 mL 06/26/2022 Active Carnosine Powder Use as directed. 1 Capsule daily Active L-Methionine Powder Use as directed. 1 capsule daily Active SAMe 400 MG Oral Tablet Take by mouth. Active MethylFolate 400 MCG Oral Capsule (Levomefolate Glucosamine) Take by mouth. Active NATURAL SUPPLEMENT Take 1 Tablet by mouth in the morning. Akermansia-1 tablet daily. Active NAC 600 MG Oral Capsule (Acetylcysteine) Take 1 Capsule by mouth in the morning. Active FreeStyle Afia 2 Sensor Use as directed. E 16.9. Change sensor every 10 days 3 Each 3 08/22/2023 Active FreeStyle Afia 2 [place] Device Use as directed. E 16.9 1 Each 08/22/2023 Active Buprenorphine HCl 8 MG Sublingual Tablet Sublingual (Subutex)Indicatio ns:Uncomplicated opioid dependence (HCC) Place 0.5 Tablets under the tongue in the morning and 0.5 Tablets at noon and 0.5 Tablets in the evening and 0.5 Tablets before bedtime. Do all this for 22 days. Wrote 6 extra for 3 weeks. 50 Tablet 02/04/2024 02/26/2024 Active documented as of this encounter (statuses as of 02/08/2024) Active Problems Problem Noted Date Diagnosed Date Uncomplicated asthma 04/27/2023 Abnormal gait 07/25/2021 Pain due to fracture 07/25/2021 Weakness 07/25/2021 Bilateral chronic knee pain 03/26/2020 Chronic hip pain after total replacement of left hip joint 03/26/2020 Complex regional pain syndrome i of left lower l imb 01/23/2020 H/O intrinsic asthma 01/09/2019 Overview: Last Assessment & Plan: Assessment: sounds well controlled, symptoms only with illness Uses Albuterol nebulizer as needed PLAN: -continue prn albuterol neb LAUREEN on CPAP 01/09/2019 Overview: Last Assessment & Plan: Assessment: compliant w CPAP at home PLAN: -continue nocturnal CPAP Osteoarthritis 01/09/2019 Osteoarthritis of left hip 01/09/2019 Overview: Last Assessment & Plan: Assessment: s/p L LACI 01/09/19 PLAN: -f/u ortho recs, Ancef x 24 hours, mobility restriction in ortho note -prophylactic lovenox -pain control -Pt/Ot, OOB this morning -regular diet Cardiac arrhythmia 07/19/2017 Atrial fibrillation with RVR 05/30/2016 Anemia 04/21/2015 Osteoporosis 04/21/2015 Hypersomnia with sleep apnea 12/02/1998 documented as of this encounter (statuses as of 02/08/2024) Resolved Problems Problem Noted Date Diagnosed Date Resolved Date Acute post-operative pain 01/09/2019 Overview: Last Assessment & Plan: Assessment: Hx of chronic regional pain syndrome on suboxone and meloxicam prior to admit, now w acute surgical pain PLAN: -ATC PO tylenol w prn PO roxicodone for mod/severe pain and prn IV fentanyl clinician boluses q2h for BTP -APMS consult due to suboxone use, added toradol and Fent ACTIVITIES CONCIERGE (0/20/q6min) Obesity, Class II, BMI 35-39.9 12/13/2018 06/18/2023 Body mass index (BMI) of 40. 0 to 44.9 in adult 11/25/2018 08/03/2021 Overview: Per Obesity protocol - Per Obesity protocol - Body mass index (BMI) of 45. 0 to 49.9 in adult 10/28/2018 11/28/2018 Overview: Per Obesity protocol - Body mass index (BMI) of 40. 0 to 44.9 in adult 07/01/2018 10/30/2018 Overview: Per Obesity protocol #1 Chest pain 05/30/2016 06/18/2023 CRPS (complex regional pain syndrome type II) 05/20/20 10 06/18/2023 Morbid obesity with BMI of 40.0-44.9, adult 08/03/2021 documented as of this encounter (statuses as of 02/08/2024) Immunizations Name Administration Dates Next Due COVID-19 mRNA, LNP-s, No Pre serve, 2-Dose Series (Moderna) 07/25/2020,06/29/2020 COVID-19, MRNA-LNP, 23-24, P F, 30 MCG/0.3 mL, 12 YRS AND ABOVE, IM (GreenNote-Comirnat) 03/06/2023 COVID-19, mRNA, LNP-s, PF, B ooster, 100mcg/0.5mg (Moderna) 08/19/2021,03/21/2021 Covid-19, Mrna, Lnp-s, Pf, B ivalent, 30 Mcg, IM, 12 yrs and above (Pfizer) 01/28/2022 Pneumococcal Conjugate Vacc, 13 Valent (Prevnar) 05/10/2018 Pneumococcal Polysaccharide PPV23 (Pneumovax) ,08/22/2005 Season Influenza, Quad, PF, Adjuvanted, 65+ Yrs, IM (FLUAD) 2020 Seasonal Influenza, Quadrivalent Hd (Fluzone Hd) 03/01/2023 Seasonal Influenza, Trivalen t, (IIV3), with Preserv, (Fluzone) 02/19/2004 Seasonal Influenza, Trivalen t, Adjuvanted, 65+ YRS, PF, (Fluad) 03/08/2019 TDAP (age 10 and older)(Boostrix) 03/22/2016 Zoster Vaccine Recombinant (Shingrix) 06/26/2022 ,07/02/2021 documented as of this encounter Social History Tobacco Use Types Packs/Day Years Used Date Smoking Tobacco: Former Cigarettes Q uit: 11/17/1980 Smokeless Tobacco: Never Alcohol Use Standard Drinks/Week Comments Not Currently 0 (1 standard drink = 0.6 oz pur e alcohol) Denies 11/06/23 AUDIT-C Answer Date Recorded Frequency of Alcohol Consumption Never 06/26/2018 Average Number of Drinks Not on file 019 Frequency of Binge Drinking Not on file 10/2018 PHQ-2 Answer Date Recorded PHQ Adult Total Score 0 01/30/2023 Hunger Vital Sign Answer Date Recorded Within the past 12 months, y ou worried that your food would run out before you got the money to buy more. Never true 01/31/20 23 Within the past 12 months, t he food you bought just didn't last and you didn't have money to get more. Never true 01/30/2023 Childcare Answer Date Recorded Do you feel overwhelmed with taking care of a child, family member or friend? No 01/30/2023 Does your family need help f inding childcare? (Household - for ages 0-17 years) Not on file 01/30/2023 Clothing Answer Date Recorded Have you been unable to get clothing when it was really needed? No 01/30/2023 Is your family able to get c lothes or diapers when needed? (Household - for ages 0-17 years) Not on file 01/30/2023 Personal Safety Answer Date Recorded Do you feel unsafe or have concerns for your saf ety? No 01/30/2023 Do you have concerns for you r family's safety? (Household - for ages 0-17 years) Not on file 01/30/2023 Utilities Answer Date Recorded Do you have trouble paying y our heating, water, or electric bill? No 01/30/2023 Is your family able to pay t he heat, water, or electric bill? (Household - for ages 0-17 years) Not on file 01/30/2023 Does your family have access to good internet? (Household - for ages 0-17 years) Not on file 01/30/2023 Employment Status Answer Date Recorded Are you unemployed or without regular income? No 01/30/2023 Does the household have a re gular source of income? (Household - for ages 0-17 years) Not on file 01/30/2023 Social Connections Answer Date Recorded How often do you feel lonely or isolated from th ose around you? Never 01/30/2023 Financial Resource Strain Answer Date R ecorded Do you have any trouble payi ng for your medications, or do you think you might in the future? No 01/30/2023 Does your family have troubl e paying for medicine? (Household - for ages 0-17 years) Not on file 01/30/2023 Transportation Needs Answer Date Record ed READ ONLY Do you have troubl e getting a ride to medical visits or work? Never True 01/30/2023 Does your family have a hard time getting a ride to doctors visits? (Household - for ages 0-17 years) Not on file 01/30/2023 Has lack of transportation k ept you from medical appointments, meetings, work, or from getting things needed for daily living? Check all that apply. (Adult - for ages 18 years and over) Not on file 01/30/2023 Do you (or your family) have trouble finding or paying for a ride (transportation)? (Household - for ages 0-17 years) Not on file 01/30/2023 Housing Stability Answer Date Recorded Do you currently live in a s helter or have no steady place to sleep at night? No 01/30/2023 READ ONLY Do you think you a re at risk of becoming homeless? No 01/30/2023 Does your family worry about paying for your home or becoming homeless? (Household - for ages 0-17 years) Not on file 0 01/30/2023 Are you homeless or worried that you might be in the future? (Adult - for ages 18 years and over) Not on file Are you (or your family) millie eless or worried that you might be in the future? (Household - for ages 0-17 years) Not on file Food Insecurity Answer Date Recorded Do you need food for this week? No 01/30/2023 Are you able to get enough f ood for your family? (Household - for ages 0-17 years) Not on file 01/30/2023 Does your family need food t his week? (Household - for ages 0-17 years) Not on file 01/30/2023 Do you always have enough fo od for your family? (Household - for ages 0-17 years) Not on file 01/30/2023 Sex and Gender Information Value Date Recorded Sex Assigned at Female 08/08/2022 2:19 PM EDT Gender Identity Female 08/08/2022 2:19 PM EDT Sexual Orientation Straight 08/08/2022 2: 19 PM EDT Job Start Date Occupation Industry Not on file Not on file Not on file documented as of this encounter Miscellaneous Notes * Telephone Encounter - Bethany López LPN - 02/08/2024 11:31 AM EDT [employer] message sent to patient regarding missed remote transmission documented in this encounter Plan of Treatment Upcoming Encounters Date Type Department Care Team (Late st Contact Info) Description 02/19/2024 3:40 PM EDT Office Visit [facility] [address] [place] [phone] [place], [address] [place] [id number] Scheduled Procedures Name Priority Associated Diagnoses Date/Ti me COLONOSCOPY FLEXIBLE PROXIMAL DIAGNOSTIC Recall History of colon polyps Health Maintenance Due Date Last Done Comments Cologuard 1998 Fecal Occult Blood Test 1998 Sigmoidoscopy 1998 *BISPHONATE OR OTHER ACCEPTABLE MEDICATION NEEDED FOR OSTEOPOROSIS (REFER TO SMARTSET #1146) 07/27/2021 *SPIROMETRY ONCE FOR ASTHMA-ADULT 04/30/2023 Mammogram 07/27/2023 07/26/2022, 07/26/2022 COVID-19 Vaccine ( season) 2024 03/06/2023, 01/28/2022, 08/19/2021, Additional history exists Influenza Vaccine (FLU shot) (#1) 2024 03/01/2023, 2020, 03/08/2019, Additional history exists Depression Screening 01/31/2024 01/30/2023 DXA Scan 11/01/2024 11/01/2022, 10/19, 06/14/2021, Additional history exists Colonoscopy 10/30/2025 10/30/2022, 10/30/2022 Colorectal Cancer Screening 10/30/2025 DTap/Tdap Vaccines (2 - Td or Tdap) 03/22/2026 03/22/2016 Lipid Panel 08/10/2027 08/09/2022 VITAMIN D LEVEL ONCE IN A LIFETIME-USE SMARTSET# [id number] Completed 06/26/2022 Zoster Vaccines Completed 06/26/2022, 07/02/2021 Pneumococcal Vaccine: 65+ Years Completed 10/04/2022, 05/10/2018, 08/22/2005 HPV (Gardasil) Vaccine Aged Out No lo nger eligible based on patient's age to complete this topic Hepatitis B Vaccine Aged Out No longe r eligible based on patient's age to complete this topic MENINGOCOCCAL (MENACTRA/MENVEO) Aged Out No longer eligible based on patient's age to complete this topic documented as of this encounter Medical Devices Not on filedocumented as of this encounter Advance Directives * Full Code (Latest Code Status on File) Date Activated Date Inactivated Comments 12/08/2019 11:32 AM 12/08/2019 5:09 PM This order reflects the patients wishes and were consensually agreed upon.
--- OUTSIDE RECORDS SUMMARY | 2024-06-18 12:40 | External Medical Summary | Continuity of Care Document ---
Author Name Unknown Organization [facility] [address] [place] [address] Address [address] [place] [phone] Care Team Providers Care Case Preparer And Liner Name Role Phone No, PCP Primary Care Physician Unavailab le Encounter [facility] [id number] Date(s): 12/20/23 - 12/20/23 [facility] [address] [place] [address] [address] [address] Encounter Diagnosis Right leg pain(Discharge Diagnosis) - 12/20/23 Discharge Disposition: Home or Self Care Attending Physician: MD Mariana, Pino A Allergies, Adverse Reactions, Alerts Substance Criticality Severity Reaction Reaction Severity Status aminophylline hives Active Medications buprenorphine 8 mg sublingual tablet Start: 11/07/23 3:22:00 PM EDT, 1 tab, SL, bid Start Date: 11/07/23 Status: Ordered Lidoderm 5% topical patch Start: 12/20/23 12:03:00 PM EDT, 1 patch, topical, Daily, Disp# 30 patch, Refills: 2, remove patches after 12 hours, Pharmacy: [id number] Start Date: 12/20/23 Stop Date: 03/19/24 Status: Ordered Mental Status 12/20/23 Barriers to Learning one year None evide nt Mandatory Health Literacy Documentation Yes Health Literacy Communication Barriers N ever Primary Language Qatari Problem List Condition Confirmation Course Effective Dates Status Health St atus Informant Atrial fibrillation Confirmed Active Thyroid disease 1 Confirmed Active Right leg pain Confirmed Active 1low results Diagnosis Diagnosis Type Effective Dates Health Status Cl inical Service Informant Right leg pain Discharge Diagnosis 12/20/23 Procedures Procedure Date Related Diagnosis Body Site Status Total hip replacement 2018 Com pleted Social History Social History Type Response Smoking Status Never smoked cigaret juanis Sex Female Sex Representation Female (finding) Ortho Outpt Note * MD Mariana, Pino A: MODIFY MD Mariana, Pino A: MODIFY, MODIFY Event Display: Ortho Outpt Note Authored Date: Name:LASHAE GUTIERREZ Patient Number:[id number] :1955 Date of Service:12/20/2023 CHIEF COMPLAINT: Follow-up right leg pain and CT review HPI: [id number] yearMala presents today forcontinued evaluation of her right tib/fib mass. She has a mass in her right calf which does not hurt constantly, but does wake her up with throbbing pain. 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 She has found relief with lidocaine patches. She also mentions her H&H and ferritin is low for which she will likely start a ferritin drip soon. She is also dealing with gerry ncing out her hormones based off of recent blood work. She would like to proceed with surgical excision likely some time this fall. Today she rates her pain as a 5/10. She also mentions left knee pain and CRPS since her TKA in 2007 at [facility]. She has tried lidocaine patches without relief. PHYSICAL EXAM: Focusing on the patient'srightlower extremity: 2+ DP pulse Sensation to light touch is intact distally Motor to: gastroc soleus, tibialis anterior, EHL nerves are 5/5 2x1cm firm, mobilemass on proximal anterior lateral aspect of lower leg/tibia which appears to besuperficial +Tenderness to palpation over firm area corresponding to calcification on x- ray in proximal medial tibia Knee ROM: 2 - 100 RADIOGRAPHY: I reviewed a CT of the right tib/fib which shows a 2.2 cm soft tissue calcification in the proximalpre-tibial soft tissue not involving the bone. I reviewed AP, Lateralviews of thetibfib(with compression stockings partially pulled down) from 12/07/2023 [facility] whichshows an [id number] off medial aspect of tibia. Noacute fracture or dislocation. Ultrasound from 07/20/2023 done at [facility] shows 1.9cm echogenic shadowing focus within right calf corresponding with palpable abnormalitywhich reflects calcification. Is of doubtful significance. IMPRESSION: Right proximal pre-tibial soft tissue calcification GOAL: Decrease pain PLAN: After a lengthy discussion with the patient today regarding my above clinical findings, as well as reviewing their imaging with them, their treatment options of conservative management versus surgical intervention were discussed. - The risk and benefits of each were discussed. - The risks of surgery included but not limited to: Infection, bleeding, nerve damage, continued pain, return of mass, stiffness, and deep vein thrombosis. They would like to proceed with surgery andinformed consent was signed for right lower leg mass removal. - She will need clearances prior to surgery - They will speak with mysurgery internet architect and have a history and physical examination performed. - Prescription for lidocaine patches provided to wear 12 hours on and 12 hours off. - For her left knee I would refer her to [facility] to discuss revision TKA when the time comes The patient understood all my instructions and explanation: all their questions were satisfactorilyaddressed. ATTESTATION: I, Sonam Reed, scribing forand in the presence of, Pino Peña, on this date,12/20/2023 11:38:55. I, Dr. Peña, saw and examined the patient with Sonam Reed acting as my scribe. I reviewed the note and agree with the documented findings and the plan of care I developed. Electronic Signature on File Electronically Reviewed/Signed by: Sonam Reed Author Signature Dt/Tm:12/20/2023 12:05 PM Electronically Reviewed/Signed by: Pino Peña MD Cosigner Signature Dt/Tm: 12/20/2023 12:10 PM [facility] Student Accounts Coordinator Department of Orthopaedics and Rehabilitation [facility] [address], [place] [address] [place] Patient Care team information Personnel Name: No, PCP
--- OUTSIDE RECORDS SUMMARY | 2024-06-18 12:40 | External Medical Summary ---
Author Name Unknown Address Unknown Organization : Laboratory Report Ordering Provider Test Date Status LEX SABILLON 06/10/2024 14:13:27 Final Observation Date Value Abnormality Reference (Units ) Status Ethyl glucuronide [Mass/volume] in Urine 06/10/2024 14:13:27 NEGATIVE <500 (ng/mL) Final Ethyl sulfate [Mass/volume] in Urine 06/10/2024 14:13:27 NEGATIVE <100 (ng/mL) Final This drug testing is for med ical treatment only.
Analysis was performed as non-forensic testing and
these results should be used only by healthcare
providers to render diagnosis or treatment, or to
monitor progress of medical conditions.
For assistance with interpreting these drug results,
please contact a [employer] Toxicology
Specialist: [phone] ( ), M-F,
8am-6pm EST.
For additional information, please refer to
http://education.Fanshout/faq/CRE698
(This link is being provided for informational/
educational purposes only.)
This test was developed and its analytical performance
characteristics have been determined by [employer]
[place]. It has
not been cleared or approved by the U.S. Food and Drug
Administration. This assay has been validated pursuant
to the CLIA regulations and is used for clinical
purposes.

Test Performed at:
[employer]
[id number] [employer] [facility]
[place], [place]
Krzysztof Houston M.D., Ph.D.,Director of Laboratories Performing Location
--- OUTSIDE RECORDS SUMMARY | 2024-06-18 12:40 | External Medical Summary ---
Author Name Unknown Address Unknown Organization K01:[facility] [place] [address] [facility] [address] Laboratory Report Ordering Provider Test Date Status TOÑA SABILLONSHINE 04/22/2024 13:57:39 Final Cutoff Concentrations:
Drug Level
Amphetamines 500 [...] Reference (Units ) Status Amphetamines, Urine screen 04/22/2024 13:57:39 Negative Negative Final Benzodiazepines, Urine screen 04/22/2024 13:57:39 Negative Negative Final Cannabinoids, Urine screen 04/22/2024 13:57:39 Negative Negative Final Cocaine Metabolite, Urine screen 04/22/2024 13:57:39 Negative Negative Final fentaNYL [Presence] in Urine by Screen method 04/22/2024 13:57:39 Negative Negative Final HYDROcodone [Presence] in Urine by Screen method 04/22/2024 13:57:39 Negative Negative Final 8-Ccmttrpqur-4,5-Dimeth yl-3,3-Diphenylpyrrolid ine (EDDP) [Presence] in Urine 04/22/2024 13:57:39 Negative Negative Final Opiates, Urine screen 04/22/2024 13:57:39 Negative Negative Final oxyCODONE [Presence] in Urine by Screen method 04/22/2024 13:57:39 Negative Negative Final Performing Location [facility] - [address] [facility] [address]
--- OUTSIDE RECORDS SUMMARY | 2024-06-18 12:40 | External Medical Summary | Summary of Care ---
Author Name Unknown Organization [facility] Address [address] [address] [address] Phone [phone] Care Team Providers Care Polysilicon Preparation Worker Name Role Phone Unavailable Primary Care Provider Unavailabl e Encounter Details Date Type Department Care Team (Late st Contact Info) Description 02/19/2024 3:40 PM EDT [facility] [address] [place] [phone] Dianna Best DO [address] [place] [phone] LAUREEN (obstructive sleep apnea)* Allergies Active Allergy Reactions Criticality Noted Date Comments Alendronate Other (Please comment) 12/26/2022 Bone pain Aminophylline Hives 03/22/2016 documented as of this encounter (statuses as of 02/26/2024) Medications Medication Sig Dispensed Refills Start Date [...] Capsule 06/26/2022 Active Vitamin A & D [address] UNIT Oral Tablet Take 2 Tablets by [...] by mouth daily. 30 Capsule 06/26/2022 Active palmitoylethanola mide 400 mg OR CAPS Take 300 mg [...] Each 3 08/22/2023 Active FreeStyle Afia 2 [place] Device Use as directed. E 16.9 1 Each 08/22/2023 Active Buprenorphine HCl 8 MG Sublingual Tablet Sublingual (Subutex)Indicati ons:Uncomplicated opioid dependence (HCC) Place 0.5 Tablets under the tongue in the morning and 0.5 Tablets at noon and 0.5 Tablets in the evening and 0.5 Tablets before bedtime. Do all this for 22 days. Wrote 6 extra for 3 weeks. 50 Tablet 02/04/2024 Discontinue d(Refill) documented as of this encounter (statuses as of 02/26/2024) Active Problems Problem Noted Date Diagnosed Date [...] as of this encounter (statuses as of 02/26/2024) Resolved Problems Problem Noted Date Diagnosed Date [...] to suboxone use, added toradol and Fent TELEVISION ANCHOR (0/20/q6min) Obesity, Class II, BMI 35-39.9 12/13/2018 [...] as of this encounter (statuses as of 02/26/2024) Immunizations Name Administration Dates Next Due COVID-19 mRNA, LNP-s, No Pre serve, 2-Dose Series (Moderna) 07/25/2020,06/29/2020 COVID-19, MRNA-LNP, 23-24, P F, 30 MCG/0.3 mL, 12 YRS AND ABOVE, IM ([facility]) 03/06/2023 COVID-19, mRNA, LNP-s, PF, B ooster, 100mcg/0.5mg (Moderna) 08/19/2021,03/21/2021 Covid-19, Mrna, Lnp-s, Pf, B ivalent, 30 Mcg, IM, 12 yrs and above ([employer]) 01/28/2022 Pneumococcal Conjugate Vacc, 13 Valent (Prevnar) 05/10/2018 Pneumococcal Polysaccharide PPV23 (Pneumovax) ,08/22/2005 Season Influenza, Quad, PF, Adjuvanted, 65+ Yrs, IM (FLUAD) 2020 Seasonal Influenza Vac., MDV, IM, 0.5 mL (Fluzon e) 02/19/2004 Seasonal Influenza, Quadrivalent Hd (Fluzone Hd) 03/01/2023 Seasonal Influenza, Trivalen t, Adjuvanted, 65+ YRS, [...] on file documented as of this encounter Progress Notes * Dianna Best, DO - 02/19/2024 4:32 PM EDT Sleep Medicine Follow-Up Clinic Note HISTORY: Ms. Jess Louie is a 69 year old female w/ a pmh of a fib w/ RVR, tachy sonny syndrome (s/p pacemaker), and complex regional pain syndrome who is in clinic today for follow up of Obstructive SleepApnea and treatment emergent central sleep apnea. Ms. Louie has not started to use her BiPAP as she still doesn't have a mask for it. She is working through some billing issues from her CPAP (which has been returned). In the mean time, she is sleeping sitting up and, with doing so, does not wake up feeling like she is short of breath with racing heart. Titration Polysomnogram 04/24/23: BMI 27.63 PAP 4-16 cmH20; intolerance to CPAP to BiPAP titrated from 14/10-18/00iuZ83; Additionally, centralapneas began around 8cmH20 and resolved at 17/13 and 18/46gtS25 17/13 cmH20 12 AHI (without REM sleep obtained) Min O2 68 % <89% O2 55 min(s) PLMI 1.9 Diagnostic Polysomnogram 08/03/22: BMI 27.45 AHI 24.3 (CMS/medicare criteria used) RDI 25 Min O2 73 % <89% O2 47.3 min(s) PLMI 9.1 No questionnaires available. PAP Compliance: Not available Patient Active Problem List Diagnosis Complex regional pain syndrome i of left lower limb Bilateral chronic knee pain Chronic hip pain after total replacement of left hip joint Abnormal gait Anemia Atrial fibrillation with RVR (HCC) Cardiac arrhythmia H/O intrinsic asthma Hypersomnia with sleep apnea LAUREEN on CPAP Osteoarthritis Osteoporosis Pain due to fracture Weakness Osteoarthritis of left hip Uncomplicated asthma Current Outpatient Medications Medication Sig Dispense Refill Buprenorphine HCl 8 MG Sublingual Tablet Sublingual (Subutex) Place 0.5 Tablets under the tongue inthe morning and 0.5 Tablets at noon and 0.5 Tablets in the evening and 0.5 Tablets before bedtime. Do all this for 22 days. Wrote 6 extra for 3 weeks. 50 Tablet 0 FreeStyle Afia 2 [place] Device Use as directed. E 16.9 1 Each 0 FreeStyle Afia 2 Sensor Use as directed. E 16.9. Change sensor every 10 days 3 Each 3 NAC 600 MG Oral Capsule (Acetylcysteine) Take 1 Capsule by mouth in the morning. NATURAL SUPPLEMENT Take 1 Tablet by mouth in the morning. Akermansia-1 tablet daily. Carnosine Powder Use as directed. 1 Capsule daily L-Methionine Powder Use as directed. 1 capsule daily MethylFolate 400 MCG Oral Capsule (Levomefolate Glucosamine) Take by mouth. SAMe 400 MG Oral Tablet Take by mouth. Cinnamon 500 MG Oral Capsule Take 2 Capsules by mouth in the morning. 60 Capsule 0 Collagen Ultra Oral Capsule Take 1 Tablet by mouth daily. 30 Capsule 0 CoQ10 200 MG Oral Capsule Take 1 Capsule by mouth daily. 30 Capsule 0 Krill Oil 500 MG Oral Capsule Take 1 Capsule by mouth in the morning. 30 Capsule 0 MCT Oil Oral Oil (MCT Oil) Take by mouth daily. 1 mL 0 palmitoylethanolamide 400 mg OR CAPS Take 300 mg by mouth daily. 30 Capsule 0 Quercetin 50 MG Oral Tablet Take 1 Tablet by mouth daily. 30 Tablet 0 Vitamin A & D [address] UNIT Oral Tablet Take 2 Tablets by mouth daily. 60 Tablet 0 Vitamin K (Phytonadione) 100 MCG Oral Tablet Take 2,000 mcg by mouth daily. 60 Tablet 0 Zinc 20 MG Oral Capsule Take 1 Capsule by mouth in the morning and 1 Capsule at noon and 1 Capsule in the evening. 90 Capsule 0 SURGICAL COMPRESSION STOCKING Compression stockings thigh high compression 20-30mmHg Wear daily 2 Each 2 Probiotic Product (PROBIOTIC ACIDOPHILUS BIOBEADS) Capsule Take 1 Cap by mouth three times a day with meals. Vitamin D 125 MCG (5000 UT) Oral Capsule Take 5,000 Units by mouth in the morning. aspirin enteric coated 81 MG TBEC Take 1 Tablet by mouth. No current facility-administered medications for this visit. PHYSICAL EXAM: There were no vitals taken for this visit. Constitutional: Alert, oriented in no acute distress Skin: no markings on face where mask fits Chest: Normal respiratory effort at rest Neuro: Normal speech and comprehension Psych: Appropriate mood and affect ASSESSMENT/PLAN: Moderate Obstructive Sleep Apnea Encouraged use of BiPAP every night, all night and for naps. Fit for new mask Recommended routine cleaning and change of supplies as needed. Strenuous exercise, which activates the sympathetic nervous system (adrenaline system) not only helps with weight loss, glucose, and mood, but also improves sleep quality, and upper respiratory muscle tone during sleep. Avoid driving, operating heavy machinery or engaging in any activity that requires full alertness if feeling sleepy, drowsy or otherwise impaired. Follow-up with Sleep Medicine in 3-6 months. Dianna Best DO I spent a total of 20-29 minutes (exact time 20 mins) on the date of service in preparation, delivery, and documentation of the care provided to Jess Louie excluding any time spent in the performance of separately billed services. documented in this encounter Plan of Treatment Upcoming Encounters Date Type Department Care Team (Late st Contact Info) Description 10/17/2024 1:20 PM EDT Office Visit Sleep Disorders Ctr [facility] [address] [facility] [place] [phone] Dianna Best DO [address] [facility] [place] [id number] Scheduled Procedures Name Priority Associated Diagnoses Date/Ti [...] D LEVEL ONCE IN A LIFETIME-USE SMARTSET# [id number] Completed 06/26/2022 Zoster Vaccines Completed 06/26/2022, 07/02/2021 [...] Not on filedocumented as of this encounter Visit Diagnoses Diagnosis LAUREEN (obstructive sleep apnea)- Primary Obstructive sleep apnea (adult) (pediatric) documented in this encounter Advance Directives * Full Code (Latest Code Status on File) Date Activated Date Inactivated Comments 12/08/2019 11:32 AM 12/08/2019 5:09 PM This order reflects the patients wishes and were consensually agreed upon.
--- OUTSIDE RECORDS SUMMARY | 2024-06-18 12:40 | External Medical Summary | Summary of Care ---
Author Name Unknown Organization [facility] Address [address] [facility] [facility] [address] Phone [phone] Care Team Providers Care Rehab Tech Name Role Phone Unavailable Primary Care Provider Unavailabl e Encounter Details Date Type Department Care Team (Late st Contact Info) Description 02/04/2024 Result Scan Unspecified Department Wanda Vaughn, DO [address] [place] [address] <No scans attached> Allergies Active Allergy Reactions Criticality Noted Date Comments Alendronate Other (Please comment) 12/26/2022 Bone pain Aminophylline Hives 03/22/2016 documented as of this encounter (statuses as of 02/04/2024) Medications Medication Sig Dispensed Refills Start Date [...] Capsule 06/26/2022 Active Vitamin A & D [address] UNIT Oral Tablet Take 2 Tablets by [...] Each 3 08/22/2023 Active FreeStyle Afia 2 [place] Device Use as directed. E 16.9 1 [...] as of this encounter (statuses as of 02/04/2024) Active Problems Problem Noted Date Diagnosed Date [...] as of this encounter (statuses as of 02/04/2024) Resolved Problems Problem Noted Date Diagnosed Date [...] to suboxone use, added toradol and Fent SUPERVISOR POST WAVE (0/20/q6min) Obesity, Class II, BMI 35-39.9 12/13/2018 [...] as of this encounter (statuses as of 02/04/2024) Immunizations Name Administration Dates Next Due COVID-19 mRNA, LNP-s, No Pre serve, 2-Dose Series (Moderna) 07/25/2020,06/29/2020 COVID-19, MRNA-LNP, 23-24, P F, 30 MCG/0.3 mL, 12 YRS AND ABOVE, IM ([facility] 03/06/2023 COVID-19, mRNA, LNP-s, PF, B ooster, 100mcg/0.5mg (Moderna) 08/19/2021,03/21/2021 Covid-19, Mrna, Lnp-s, Pf, B ivalent, 30 Mcg, IM, 12 yrs and above ([employer]) 01/28/2022 Pneumococcal Conjugate Vacc, 13 Valent (Prevnar) [...] on file documented as of this encounter Plan of Treatment Upcoming Encounters Date Type Department Care Team (Late st Contact Info) Description 02/19/2024 3:40 PM EDT [facility] [address] [place] [phone] Dianna Best DO [address] [place] [phone] Scheduled Procedures Name Priority Associated Diagnoses Date/Ti [...] D LEVEL ONCE IN A LIFETIME-USE SMARTSET# 80536 Completed 06/26/2022 Zoster Vaccines Completed 06/26/2022, 07/02/2021 [...] Not on filedocumented as of this encounter Procedures Procedure Name Priority Date/Time Associated Diagnosis Comments CARDIOLOGY SCANNED RESULT 02/04/2024 documented in this encounter Results * CARDIOLOGY SCANNED RESULT (02/04/2024) 02/04/2024 Wanda Vaughn DO OTHER documented in this encounter Advance Directives * Full Code (Latest Code Status on File) Date Activated Date Inactivated Comments 12/08/2019 11:32 AM 12/08/2019 5:09 PM This order reflects the patients wishes and were consensually agreed upon.
--- OUTSIDE RECORDS SUMMARY | 2024-06-18 12:40 | External Medical Summary | Summary of Care ---
Author Name Unknown Organization [facility] Address [address] [facility] [place] [address] Phone [phone] Care Team Providers Care Log Grader Name Role Phone Unavailable Primary Care Provider Unavailabl e Reason for Visit * Reason Onset Date Comments Durable Medical Equipment 02/25/2024 CPAP s upplies Encounter Details Date Type Department Care Team (Late st Contact Info) Description 02/25/2024 Telephone Sleep Disorders Ctr [facility] [address] [place] [phone] Dianna Best, [address] [place] [phone] Durable Medical Equipment (CPAP supplies ) Allergies Active Allergy Reactions Criticality Noted Date Comments Alendronate Other (Please comment) 12/26/2022 Bone pain Aminophylline Hives 03/22/2016 documented as of this encounter (statuses as of 02/27/2024) Medications Medication Sig Dispensed Refills Start Date [...] Capsule 06/26/2022 Active Vitamin A & D [address] UNIT Oral Tablet Take 2 Tablets by [...] Each 3 08/22/2023 Active FreeStyle Afia 2 [place] Device Use as directed. E 16.9 1 Each 08/22/2023 Active Buprenorphine HCl 8 MG Sublingual Tablet Sublingual (Subutex)Indicati ons:Uncomplicated opioid dependence (HCC) Place 0.5 Tablets under the tongue in the morning and 0.5 Tablets at noon and 0.5 Tablets in the evening and 0.5 Tablets before bedtime. Do all this for 22 days. Wrote 6 extra for 3 weeks. 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 * Telephone Encounter - Dianna Best DO - 02/26/2024 4:16 PM EDT The note is now signed * Telephone Encounter - Paula Rawls OSA - 02/26/2024 8:12 AM EDT My apologies, that should have said waiting for NOTE to be signed! * Telephone Encounter - Dianna Best DO - 02/26/2024 8:02 AM EDT Ordered is signed in my Epic (02/18); however, the encounter isn't closed. Maybe that's the issue? Hopefully, I can get that closed this evening. * Telephone Encounter - Paula Rawls OSA - 02/25/2024 10:53 AM EDT DME order for CPAP mask placed 02/18. Waiting for order to be signed in order to submit to . documented in this encounter Plan of Treatment Upcoming Encounters Date Type Department Care Team (Late st Contact Info) Description 10/17/2024 1:20 PM EDT Office Visit [facility]tr [facility] [address] [place] [phone] Dianna Bets, [address] [place] [phone] Scheduled Procedures Name Priority Associated Diagnoses Date/Ti [...] D LEVEL ONCE IN A LIFETIME-USE SMARTSET# [id number] Completed 06/26/2022 Zoster Vaccines Completed 06/26/2022, 07/02/2021 [...]
--- OUTSIDE RECORDS SUMMARY | 2024-06-18 12:40 | External Medical Summary ---
Author Name Unknown Address Unknown Organization K01:[facility]ORY [facility] [place] [facility] [address] [facility] [address] [facility] [address] Laboratory Report Ordering Provider Test Date Status LEX SABILLON 06/10/2024 14:13:27 Final Cutoff Concentrations:
Drug Level
Amphetamines 500 [...] Reference (Units ) Status Amphetamines, Urine screen 06/10/2024 14:13:27 Negative Negative Final Benzodiazepines, Urine screen 06/10/2024 14:13:27 Negative Negative Final Cannabinoids, Urine screen 06/10/2024 14:13:27 Negative Negative Final Cocaine Metabolite, Urine screen 06/10/2024 14:13:27 Negative Negative Final fentaNYL [Presence] in Urine by Screen method 06/10/2024 14:13:27 Negative Negative Final HYDROcodone [Presence] in Urine by Screen method 06/10/2024 14:13:27 Negative Negative Final 1-Rlsyyfllbd-5,5-Dimeth yl-3,3-Diphenylpyrrolid ine (EDDP) [Presence] in Urine 06/10/2024 14:13:27 Negative Negative Final Opiates, Urine screen 06/10/2024 14:13:27 Negative Negative Final oxyCODONE [Presence] in Urine by Screen method 06/10/2024 14:13:27 Negative Negative Final Performing Location LABORATORY C - [address] [facility] [address]
--- OUTSIDE RECORDS SUMMARY | 2024-06-18 12:40 | External Medical Summary ---
Author Name Unknown Address Unknown Organization K01[place] [facility] [place] [facility] [address] [facility] [address] Laboratory Report Ordering Provider Test Date Status LEX SABILLON 02/26/2024 12:46:16 Final Observation Date Value Abnormality Reference (Units ) Status FORENSIC VALID INTERPRETATION 02/26/2024 12:46:16 Normal Final Creatinine, Urine 02/26/2024 12:46:16 9 (mg/dL) Final Specific gravity of Urine by Refractometry 02/26/2024 12:46:16 1.0046 Final Performing Location [place] [facility] [place] [address] [facility] [address]
--- OUTSIDE RECORDS SUMMARY | 2024-06-18 12:40 | External Medical Summary ---
Author Name Unknown Address Unknown Organization K01:[facility] [place] - [facility] [address] [facility] [address] Laboratory Report Ordering Provider Test Date Status TOÑA SABILLONSHINE 04/22/2024 13:57:39 Final Observation Date Value Abnormality Reference (Units ) Status FORENSIC VALID INTERPRETATION 04/22/2024 13:57:39 Normal Final Creatinine, Urine 04/22/2024 13:57:39 8 (mg/dL) Final Specific gravity of Urine by Refractometry 04/22/2024 13:57:39 1.0048 Final Performing Location LABORATORY [facility] [place] - [address] [place] [address]
--- OUTSIDE RECORDS SUMMARY | 2024-06-18 12:40 | External Medical Summary | Summary of Care ---
Author Name Unknown Organization [facility] Address [address] [facility] [place] [address] Phone [phone] Care Team Providers Care Acetaldehyde Converter Operator Name Role Phone Unavailable Primary Care Provider Unavailabl e Encounter Details Date Type Department Care Team (Late st Contact Info) Description 04/30/2024 Result Scan Unspecified Department Wanda Vaughn, DO [address] [place] [address] <No scans attached> Allergies Active Allergy Reactions Criticality Noted Date Comments Alendronate Other (Please comment) 12/26/2022 Bone pain Aminophylline Hives 03/22/2016 documented as of this encounter (statuses as of 04/30/2024) Medications aspirin enteric coated 81 MG TBEC Take 1 Tablet by mouth. 7 Active Vitamin D 125 MCG (5000 UT) Oral Capsule Take 5,000 Units by mouth in the morning. Active Probiotic Product (PROBIOTIC ACIDOPHILUS BIOBEADS) Capsule Take 1 Cap by mouth three times a day with meals. Active SURGICAL COMPRESSION STOCKING Compression stockings thigh high compression 20-30mmHg Wear daily 2 Each 2 3 Active Cinnamon 500 MG Oral Capsule Take 2 Capsules by mouth in the morning. 60 Capsule 3 Active Vitamin A & D [address] UNIT Oral Tablet Take 2 Tablets by mouth daily. 60 Tablet 3 Active Vitamin K (Phytonadione) 100 MCG Oral Tablet Take 2,000 mcg by mouth daily. 60 Tablet 3 Active Quercetin 50 MG Oral Tablet Take 1 Tablet by mouth daily. 30 Tablet 3 Active Collagen Ultra Oral Capsule Take 1 Tablet by mouth daily. 30 Capsule 3 Active Krill Oil 500 MG Oral Capsule Take 1 Capsule by mouth in the morning. 30 Capsule 3 Active Zinc 20 MG Oral Capsule Take 1 Capsule by mouth in the morning and 1 Capsule at noon and 1 Capsule in the evening. 90 Capsule 3 Active CoQ10 200 MG Oral Capsule Take 1 Capsule by mouth daily. 30 Capsule 3 Active palmitoylethanol amide 400 mg OR CAPS Take 300 mg by mouth daily. 30 Capsule 3 Active MCT Oil Oral Oil (MCT Oil) Take by mouth daily. 1 mL 3 Active Carnosine Powder Use as directed. 1 Capsule daily Active L-Methionine Powder Use as directed. 1 capsule daily Active SAMe 400 MG Oral Tablet Take by mouth. Activ e MethylFolate 400 MCG Oral Capsule (Levomefolate Glucosamine) Take by mouth. Ac tive NATURAL SUPPLEMENT Take 1 Tablet by mouth in the morning. Akermansia-1 tablet daily. Active NAC 600 MG Oral Capsule (Acetylcysteine) Take 1 Capsule by mouth in the morning. Active FreeStyle Afia 2 Sensor Use as directed. E 16.9. Change sensor every 10 days 3 Each 3 4 Active FreeStyle Afia 2 [place] Device Use as directed. E 16.9 1 Each 4 Active Buprenorphine HCl 8 MG Sublingual Tablet Sublingual (Subutex)Indicat ions:Uncomplicat ed opioid dependence (HCC) Place 1 Tablet under the tongue daily as needed (breakthrough pain) for up to 8 days. Wrote 8 extra for break through pain for the 4 week supply 8 Tablet 4 05/01/20 24 Active documented as of this encounter (statuses as of 04/30/2024) Active Problems Problem Noted Date Diagnosed Date Uncomplicated asthma 04/27/2023 Abnormal gait 07/25/2021 Pain due to fracture 07/25/2021 Weakness 07/25/2021 Bilateral chronic knee pain 03/26/2020 Chronic hip pain after total replacement of left hip joint 03/26/2020 Complex regional pain syndrome i of left lower l imb 01/23/2020 H/O intrinsic asthma 01/09/2019 Overview (07/25/2021): Last Assessment & Plan: Assessment: sounds well controlled, symptoms only with illness Uses Albuterol nebulizer as needed PLAN: -continue prn albuterol neb LAUREEN on CPAP 01/09/2019 Overview (07/25/2021): Last Assessment & Plan: Assessment: compliant w CPAP at home PLAN: -continue nocturnal CPAP Osteoarthritis 01/09/2019 Osteoarthritis of left hip 01/09/2019 Overview (07/25/2021): Last Assessment & Plan: Assessment: s/p L LACI 01/09/19 PLAN: -f/u ortho recs, Ancef x 24 hours, mobility restriction in ortho note -prophylactic lovenox -pain control -Pt/Ot, OOB this morning -regular diet Cardiac arrhythmia 07/19/2017 Atrial fibrillation with RVR 05/30/2016 Anemia 04/21/2015 Osteoporosis 04/21/2015 Hypersomnia with sleep apnea 12/02/1998 documented as of this encounter (statuses as of 04/30/2024) Resolved Problems Problem Noted Date Diagnosed Date Resolved Date Acute post-operative pain 01/09/2019 Overview (07/25/2021): Last Assessment & Plan: Assessment: Hx of chronic regional pain syndrome on suboxone and meloxicam prior to admit, now w acute surgical pain PLAN: -ATC PO tylenol w prn PO roxicodone for mod/severe pain and prn IV fentanyl clinician boluses q2h for BTP -APMS consult due to suboxone use, 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 (0/20/q6min) Obesity, Class II, BMI 35-39.9 12/13/2018 [...] as of this encounter (statuses as of 04/30/2024) Immunizations Name Administration Dates Next Due COVID-19 mRNA, LNP-s, No Pre serve, 2-Dose Series (Moderna) 07/25/2020,06/29/2020 COVID-19, MRNA-LNP, PF, 30 M CG/0.3 mL, 12 YRS AND ABOVE, IM ([facility]) 03/06/2023 COVID-19, mRNA, LNP-s, PF, B ooster, [...] = 0.6 oz pur e alcohol) Denies 04/22/24 AUDIT-C Answer Date Recorded Frequency of Alcohol [...] ages 0-17 years) Not on file 01/30/2023 Comments No Sex and Gender Information Value Date Recorded Sex Assigned at Female 08/08/2022 2:19 PM EDT Legal Sex Female 12:21 PM EDT Gender Identity Female 08/08/2022 2:19 PM EDT Sexual Orientation Straight 08/08/2022 2: 19 PM EDT documented as of this encounter Plan of Treatment Upcoming Encounters Date Type Department Care Team (Late st Contact Info) Description 10/17/2024 1:20 PM EDT [facility] [address] [place] [phone] Dianna Best DO [address] [place] [phone] Scheduled Procedures Name Priority Associated Diagnoses Date/Ti [...] D LEVEL ONCE IN A LIFETIME-USE SMARTSET# [id number] Completed 06/26/2022 Zoster Vaccines Completed 06/26/2022, 07/02/2021 [...] Date/Time Associated Diagnosis Comments CARDIOLOGY SCANNED RESULT 04/30/2024 documented in this encounter Results * CARDIOLOGY SCANNED RESULT (04/30/2024) 04/30/2024 us Wanda Vaughn DO OTHER Final R esult documented in this encounter Advance Directives * Full Code (Latest Code Status on File) Date Activated Date Inactivated Comments 12/08/2019 11:32 AM 12/08/2019 5:09 PM This order reflects the patients wishes and were consensually agreed upon.
--- NOTE | 2024-06-18 12:55 | History & Physical Report ---
Date of Service June 18, 2024 Assessment & Plan (1) Hematoma of right hip: (2) Acute chest wall pain: (3) LVH (left ventricular hypertrophy): (4) Moderate obstructive sleep apnea: (5) Atrial fibrillation: (6) S/P gastric bypass: Plan The patient is a 69 year old female with a PMH of AF, LVH, sleep apnea, vit d def, who presents to the ED on 06/18/24 with complaints of r sided cp and sob x 1 week. Had a recent fall 1 week prior with Large R leg hematoma and no traumat ic fractures at this time - evaluated at [facility] at that time and was in rapid AF -120s- 140s, left ama because she did not want to be transferred. Assessment and plan AF w/ RVR Hypotension -Amio gtt started in ER, cardiology rec hep gtt, pt reluctant to try a blood thinner. -Continue amio gtt for now - add po metoprolol; telemetry monitoring -Consider cardioversion if no improvement and remains HD unstabl -Pt mentating well, closely monitor HR and BP. New LE edema: Hx LVH/PM -Recheck ECHO - suspect possible chf from uncontrolled rapid af -Hx of severely enlarged atrium -telemetry monitoring. Large R leg hematoma -Consult orthopedics, monitor h/h - avoid AC for now -Continue home buprenorphine for pain R pleural effusion: Suspected underlying PNA: -possibly secondary to recent fall and injury/inability to take a deep breath -start IV ceftriaxone/doxy for possible PNA - pt would like to avoid oral ab A total of 60 minutes was spent on chart review/facilitating plan of care/discussion with consultants/reviewing diagnostic data. Prognosis guarded - close monitoring Full code DVT prophylaxis: scds, avoid AC with hematoma History of Present Illness Chief Complaint: r sided chest pain, sob, recent fall Primary Care Provider: NO PCP The patient is a 69 year old female with a pmh of tachy/sonny syndrome, PM, AF, svt, s/p gastric bypass, lvh, sleep apnea who presents to the ED today with complaints of R sided chest pain and sob x 1 week. She fell about a week ago - mechanical in nature. Reports having new boots on and tripped on the curb. Denies LOC at that time. Had negative trauma work up but was in AF RVR at this time. Left AMA at this time because she did not want to be transferred over to [place] at that time. Reports sob and r chest pain x 1 week that made her come back to the hospital today. Reports chest pain on inspiration and severe sternal pain - tender on exam. Patient reports it hurts to breathe and she is unable to take a deep breath because of pain the right side of her chest. Reports a decrease in appetite. Denies dizziness or palpitations. Patient reports having issues with medications and prefers to get to the root cause of the problem and would prefer to not take medications. She follows with Dr. Thomason outpatient - has declined metoprolol in the past. A/P CT: 1. Soft tissue hematoma lateral to the right hip with no underlying fracture seen. 2. Gallstones without evidence of acute cholecystitis. Mild dilatation of the c ommon bile duct. 3. No other acute findings seen.. Chest CT: Small right pleural effusion. CT number suggests this is fluid rather than hemothorax. Cardiomegaly is present. No definite evidence of acute rib fracture. L1 compression fracture associated with spinal stenosis appears to be unchanged when compared with 2019. CXR: Atelectasis versus early pneumonia in the lung bases. No other acute findings seen. Labs are fairly unremarkable. EKG showed rapid AF in the 160s - SBPs in the 80s/90s Patient was started on amiodarone gtt and will be admitted for further management of rapid AF. Allergies Allergy/AdvReac Type Severity Reaction Status Date / Time aminophylline Allergy Intermediate hives Verified 02/03/22 12:30 Home Medications Medication Instructions Recorded Confirmed Type aspirin 81 mg tablet,delayed 81 mg PO QAM 03/19/18 06/18/24 History release (Abhilash Low Dose Aspirin) fluticasone 250 mcg-salmeterol 50 1 inh inhalation BID PRN Shortness 03/19/18 06/18/24 History mcg/dose blistr powdr for Of Breath inhalation (Advair Diskus) buprenorphine 8 mg-naloxone 2 mg 0.5 tab sublingual QID 11/08/18 06/18/24 History sublingual tablet crutch #2 ea 12/23/18 02/03/22 Rx dandelion 1 tab PO UD 04/30/19 06/18/24 History hawthorn 1 ea PO UD 04/30/19 06/18/24 History cholecalciferol (vitamin D3) 50 2,000 units PO UD 04/08/21 06/18/24 History mcg (2,000 unit) capsule blood-glucose meter (OneTouch #1 ea 02/08/22 Rx Verio Reflect Meter) blood sugar diagnostic (OneTouch #100 ea 02/10/22 Rx Verio test strips) flash glucose sensor (FreeStyle #2 ea 02/10/22 Rx Afia 2 Sensor kit) lancets 33 gauge (OneTouch Delica #100 ea 02/10/22 Rx Lancets) Past Med/Surg History Problem List (Updated 06/18/24 @ 12:46 by Sara Aviles MD) Hematoma of right hip (Acute) Acute chest wall pain (Acute) Atrial fibrillation with rapid ventricular response (Acute) Malaise Dry mouth, unspecified Weight loss S/P gastric bypass Atrial fibrillation History of colon polyps Ambulatory dysfunction Vitamin D deficiency Urinary incontinence Status post placement of implantable loop recorder Pulmonary nodules Postural imbalance Palpitations PVC (premature ventricular contraction) PSVT (paroxysmal supraventricular tachycardia) Osteopenia LVH (left ventricular hypertrophy) Hydronephrosis Chronic pain due to trauma Chronic narcotic use Atrophy, kidney Osteoporosis Nocturnal hypoxemia Obesity Moderate obstructive sleep apnea does not use device Atrial fibrillation s/p cardioversion 07/2017-ASA only Medical History Atrial fibrillation Atrial fibrillation Cervical cancer CRPS (complex regional pain syndrome) Iron deficiency anemia following bariatric surgery Moderate obstructive sleep apnea No blood products Opiate dependence Opioid dependence Sepsis Tinnitus of both ears Surgical History History of adenoidectomy History of appendectomy History of cardioversion History of carpal tunnel surgery of left wrist History of colonoscopy with polypectomy (~2017) History of dilatation and curettage History of esophagogastroduodenoscopy (EGD) History of gastric bypass History of herniorrhaphy History of laminectomy History of loop recorder History of repair of rotator cuff History of surgery History of tonsillectomy History of tooth extraction History of total knee replacement Status post panniculectomy Status post total replacement of hip Family History Mother Vaginal cancer Family history of diabetes mellitus Aunt Family history of diabetes mellitus Grandmother (Maternal) Family history of diabetes mellitus Breast cancer Grandfather (Maternal) Family history of diabetes mellitus Other No family history of adverse response to anesthesia Denies family history of Prostate cancer Myocardial infarction Colorectal cancer Social History Smoking Status: Former smoker Age Quit Using Tobacco: 27; Second Hand Exposure: Yes ( A CHILD); Do You Dip or Chew Tobacco: No; Hx Alcohol Use: No Hx Substance Use: No Preferred Language: Mongolian Communication Ability: Effective Timber Rider Required: No Beliefs That Will Affect Care: None marital status: Current Living Situation: Spouse current occupational status: retired Other Information That Helps Us Care for You: No Feels Safe at Home: Yes Safety Concerns: Feels Safe At This Time Dental Care, Regularly: Yes Physical Activity Frequency Comment: limited due to hip- fracture of pelvis last year Assistive Devices: BiPap Physical Exam Physical Exam: refer to attending Dr. Stevens for physical exam Constitutional: WD/WN, vitals as above + ill appearing Eyes: PERRL, conjunctivae normal, anicteric sclerae ENMT: external ear and nose normal, oropharynx normal (r sided facial bruising, no swelling) Neck: trachea midline, no thyromegaly Respiratory: normal respiratory effort, lungs clear to auscultation Cardiovascular: Rate/Rhythm: + tachycardic and + irregularly irregular Vessels: + JVD Extremities: + edema (+3 b/l le pitting edema ) Gastrointestinal (Abdomen): normal bowel sounds, soft, nontender, no hepatosplenomegaly Musculoskeletal: no cyanosis or clubbing, extremities motor strength 5/5 (+3 b/l le edema, pitting - large r thigh hematoma ) Neurologic: PERRL, EOMI, accommodation nl, no face palsy, no dysarthria Psychiatric: A+Ox3, euthymic affect Lymphatic: no cervical or axillary lymphadenopathy Results & Data Results & Data Vital Signs (Past 12 Hours) Vital Signs Temp Pulse Pulse Resp BP BP Pulse Ox 06/18/24 12:00 167 H 18 96/60 L 98 06/18/24 11:54 89 L 06/18/24 11:01 159 H 18 92/63 L 95 06/18/24 10:46 155 H 15 88/51 L 94 06/18/24 10:41 147 H 17 91/45 L 95 06/18/24 10:36 153 H 14 91/45 L 96 06/18/24 10:30 146 H 12 100/74 96 06/18/24 10:12 102/62 06/18/24 10:08 169 H 06/18/24 10:06 147 H 16 100/71 95 06/18/24 09:40 36.7 C 133 H 18 119/73 96 O2 Del Method O2 Flow Rate 06/18/24 12:00 Nasal Cannula 2 06/18/24 11:54 Room Air, Nasal Cannula 0 06/18/24 11:01 Room Air 06/18/24 10:46 Room Air 06/18/24 10:41 Room Air 06/18/24 10:36 Room Air 06/18/24 10:30 Nasal Cannula 2 06/18/24 10:12 06/18/24 10:08 06/18/24 10:06 Room Air 06/18/24 09:40 Room Air Diagnostic Findings Laboratory Results WBC 4.29 K/ul (4.8-10.8) L 06/18/24 10:00 RBC 4.49 M/uL (4.20-5.40) 06/18/24 10:00 Hgb 12.8 g/dl (12.0-16.0) 06/18/24 10:00 POC Hgb 13.9 g/dl (12.0-16.0) 06/18/24 10:08 Hct 38.9 % (37.0-47.0) 06/18/24 10:00 POC Hct 41 % (37-47) 06/18/24 10:08 MCV 86.6 fL (80.0-100.0) 06/18/24 10:00 MCH 28.5 pg (25.0-34.0) 06/18/24 10:00 MCHC 32.9 g/dL (32.0-36.0) 06/18/24 10:00 RDW Std Deviation 49.4 fL (36.4-46.3) H 06/18/24 10:00 RDW Coeff of Hetal 16.0 % (11.5-14.5) H 06/18/24 10:00 Plt Count 240 K/uL (130-400) 06/18/24 10:00 MPV 9.9 fL (9.4-12.4) 06/18/24 10:00 Immature Gran % (Auto) 0.2 % 06/18/24 10:00 Neut % (Auto) 68.6 % 06/18/24 10:00 Lymph % (Auto) 20.5 % 06/18/24 10:00 [place] % (Auto) 9.1 % 06/18/24 10:00 Eos % (Auto) 0.9 % 06/18/24 10:00 Baso % (Auto) 0.7 % 06/18/24 10:00 Neut # (Auto) 2.94 K/uL (1.40-6.50) 06/18/24 10:00 Lymph # (Auto) 0.88 K/uL (1.20-3.40) L 06/18/24 10:00 [place] # (Auto) 0.39 K/uL (0.11-0.59) 06/18/24 10:00 Eos # (Auto) 0.04 K/uL (0.00-0.50) 06/18/24 10:00 Baso # (Auto) 0.03 K/uL (0.00-0.20) 06/18/24 10:00 Immature Gran # (Auto) 0.01 K/uL (0.01-0.20) 06/18/24 10:00 PT 11.0 Seconds (9.0-12.0) 06/18/24 10:00 INR 1.0 (0.9-1.1) 06/18/24 10:00 POC Sodium 141 mmol/L (135-144) 06/18/24 10:08 Sodium 141 mmol/L (136-145) 06/18/24 10:00 POC Potassium 3.6 mmol/L (3.3-5.0) 06/18/24 10:08 Potassium 3.8 mmol/L (3.5-5.1) 06/18/24 10:00 POC Chloride 107 mmol/L (101-112) 06/18/24 10:08 Chloride 107 mmol/L (98-107) 06/18/24 10:00 Carbon Dioxide 27 mmol/L (21-32) 06/18/24 10:00 POC Total CO2 22 mmol/L (24-31) L 06/18/24 10:08 Anion Gap 7 (3-11) 06/18/24 10:00 POC Anion Gap 16.0 mmol/L (16-25) 06/18/24 10:08 POC BUN 17 mg/dl (7-18) 06/18/24 10:08 BUN 17 mg/dl (6-23) 06/18/24 10:00 Creatinine 0.57 mg/dl (0.6-1.2) L 06/18/24 10:00 POC Creatinine 0.6 mg/dl (0.6-1.3) 06/18/24 10:08 Est Cr Clr Drug Dosing 91.4 ml/min 06/18/24 10:00 eGFR 97.10 06/18/24 10:00 BUN/Creatinine Ratio 29.8 (10-20) H 06/18/24 10:00 Glucose 94 mg/dl (70-99(Fasting)) 06/18/24 10:00 POC Glucose (other) 93 mg/dl (70-99) 06/18/24 10:08 Lactate 1.0 mmol/L (0.4-2.0) 06/18/24 11:46 Calcium 9.7 mg/dl (8.6-10.3) 06/18/24 10:00 POC Ioniz Calcium Juan Diego 1.16 mmol/l (1.12-1.32) 06/18/24 10:08 Total Bilirubin 0.8 mg/dl (0.2-1.0) 06/18/24 10:00 AST 23 U/L (13-39) 06/18/24 10:00 ALT 15 U/L (7-52) 06/18/24 10:00 Alkaline Phosphatase 57 U/L (34-104) 06/18/24 10:00 Troponin I High Sens 3.4 pg/ml (0-14) 06/18/24 10:00 B-Natriuretic Peptide 457 pg/ml (0-100) H 06/18/24 10:00 Total Protein 6.8 gm/dl (6.0-8.3) 06/18/24 10:00 Albumin 4.3 gm/dl (3.4-5.0) 06/18/24 10:00 Globulin 2.5 gm/dl (2.5-4.0) 06/18/24 10:00 Albumin/Globulin Ratio 1.7 (0.9-2) 06/18/24 10:00 Lipase 19 U/L (11-82) 06/18/24 10:00 Blood Type O Positive 06/18/24 10:22 Antibody Screen NEGATIVE 06/18/24 10:22 Impressions Chest X-Ray 06/18/24 09:46 XR chest 1V portable CLINICAL HISTORY: R rib pain s/p fall COMPARISON STUDY: 12/14/2021 FINDINGS: Stable pacemaker. Stable small hiatal hernia. Stable mild cardiomegaly without pulmonary vascular congestion. Inspiration is shallow. There is interval stranding opacity in the lung bases with partial obscuration of the diaphragm. No pleural effusion or pneumothorax. No grossly displaced rib fracture seen. IMPRESSION: Atelectasis versus early pneumonia in the lung bases. No other acute findings seen. ACT 112: Negative or not required by law. Electronically signed by: Brandon Nix M.D. 06/18/2024 10:24 AM Abdomen/Pelvis CT 06/18/24 10:[address] WITH IV CONTRAST CT DOSE: 1977.33 mGy.cm HISTORY: fall from standing; R hip hematoma TECHNIQUE: Multiaxial CT images of the abdomen and pelvis were performed following the IV administration of 90 cc of Optiray, A dose lowering technique was utilized adhering to the principles of ALARA. COMPARISON STUDY: 11/18/2017 FINDINGS: There is a small right pleural effusion. There is a small hiatal hernia. ABDOMEN: There are multiple gallstones without evidence of acute cholecystitis. There is mild dilatation of the common bile duct measuring 1 cm diameter. Otherwise the liver, spleen, pancreas, and adrenal glands are unremarkable. Kidneys show no hydronephrosis or calculi. There is a tiny cyst of the left kidney. There are scattered atherosclerotic calcifications. No abdominal aortic aneurysm. Pelvis: Uterus is not well seen. No adnexal mass seen. Urinary bladder is nondistended. There is extensive sigmoid diverticulosis. No acute diverticulitis. There is a large amount of retained stool. No bowel inflammation or obstruction. No enlarged adenopathy. Osseous structures: There is a 8 cm oval increased echogenicity finding in the superficial soft tissues lateral to the right hip consistent with soft tissue hematoma. There is chronic-appearing height loss at the L1 vertebral body. There is severe diffuse lumbar degenerative disc disease. Left hip prosthesis is prese nt. No acute fracture seen at the visualized osseous structures. IMPRESSION: 1. Soft tissue hematoma lateral to the right hip with no underlying fracture seen. 2. Gallstones without evidence of acute cholecystitis. Mild dilatation of the common bile duct. 3. No other acute findings seen.. ACT 112: Negative or not required by law. The above report was generated using voice recognition software. It may contain grammatical, syntax or spelling errors. Electronically signed by: Brandon Nix M.D. 06/18/2024 11:[address] 06/18/24 10:[address] WITH CONTRAST CT DOSE: 1977.33 HISTORY: fall from standing; SOB; R rib pain TECHNIQUE: Multiaxial CT images of the chest were performed following the IV administration of Optiray 320. A dose lowering technique was utilized adhering to the principles of ALARA. Sagittal and coronal reconstructions were done. COMPARISON STUDY: 04/09/2019 FINDINGS: There is a small right pleural effusion present. There is no rib fracture identified. There is a compression fracture of L1 which appears to have been present in 2019. It is associated with secondary degenerative change, slight retropulsion, and hypertrophic posterior elements all of which combine to result in a spinal canal stenosis at L1. There is mild compressive atelectasis at the right lung base associated with pleural fluid. No additional infiltrate. There is no pneumothorax. The heart is enlarged. There is a pacemaker in place. There is no evidence of pericardial effusion. There are severe degenerative changes involving both shoulder joints. The available upper abdominal images are noncontributory. IMPRESSION: Small right pleural effusion. CT number suggests this is fluid rather than hemothorax. Cardiomegaly is present. No definite evidence of acute rib fracture. L1 compression fracture associated with spinal stenosis appears to be unchanged when compared with 2019. ACT 112: Negative or not required by law. Electronically signed by: Minal Joya M.D. 06/18/2024 11:22 AM Supervising Physician Co-Signing Physician Notes Patient seen and examined independently. Discussed with above provider. Patient is a 69-year-old female with history of tachybradycardia syndrome status post pacemaker placement, history of A-fib, history of prior opioid use disorder, currently on buprenorphine who presents to the hospital with right- sided pleuritic chest pain. Patient had a fall on her right side a week ago; reports pain in her left side of the chest, sternum and right hip. She also reports hematoma on her right hip. Imaging in the ED showed small right sided pleural effusion, right-sided hematoma on the hip. No obvious fractures were seen. She was also found to be in atrial fibrillation with RVR for which amiodarone drip was started by the ED provider. Patient has a known history of atrial fibrillation; she was recommended to be started on metoprolol for rate control and possible anticoagulation but she has refused it multiple times. I again discussed with her about anticoagulation use to prevent stroke. She verbalized understanding of the risks of stroke that could lead to disability/multiple complication but continued to refuse initiation of anticoagulation. On physical examination; General; alert oriented x 3. Has ecchymosis/bruising on right face. Respiratory: Decreased breath sound on right lower lung base. Cardiovascular: Irregular, elevated JVP, bilateral pitting edema present. Abdomen: normal bowel sounds, soft, nontender, no hepatosplenomegaly Musculoskeletal: Hematoma palpable on right hip. Bruising surrounding it. Tender; Neurologic: PERRL, EOMI, accommodation nl, no face palsy, no dysarthria CN's II- XI intact bilaterally and moves all extremities Psychiatric: A+Ox3, euthymic affect Assessment/plan Atrial fibrillation with RVR Right-sided pleural effusion with possible underlying pneumonia Soft tissue hematoma on right hip Possible tachycardia induced cardiomyopathy For atrial fibrillation; discussion was done with on-call heel sprayer first. Recommend continuing amiodarone drip for rate control. Recommended heparin drip which patient refused. Also started on metoprolol 12.5 mg 4 times daily. Patient reports electrical cardioversion in the past which has failed. Obtain echocardiogram Started on antibiotics for possible pneumonia. Orthopedic consulted for evaluation of right-sided hematoma. I have reviewed the advanced practitioner's documentation, and I agree with, and take responsibility for the plan of care I spent a total of 45 minutes coordinating, documenting, and providing care for this patient excluding time spent in the performance of separately billed services. All of the aforementioned completed while collaborating with the assigned advanced practitioner for a full treatment plan
[2024-06-18] MEDS: SODIUM CHLORIDE 0.9% 1,000 ML IV ONE (13:31)
[2024-06-18] MEDS: METOPROLOL TARTRATE 25 MG TAB PO STA (15:20)
[2024-06-18] MEDS ORDERED: INFLUENZA VACC TS2024-25(65y+)/PF (IIV3) 0.5mL Syr IM ONE (16:19)
[2024-06-18] MEDS ORDERED: ALBUT/IPRATROP 3MG/0.5MG NEB 3 ML VIAL NEB PRN (16:19)
[2024-06-18] MEDS ORDERED: ACETAMINOPHEN 325 MG TAB PO PRN (16:19)
[2024-06-18] MEDS: cefTRIAXone SODIUM 2,000 MG/50 ML BAG IV SCH (17:46)
[2024-06-18] MEDS: AMIODARONE / D5W 360 MG/200 ML BAG IV SCH (18:00)
[2024-06-18] MEDS: DOXYCYCLINE HYCLATE 100 MG in DEXTROSE 5% MINI-B 100 ML IV SCH (18:20)
[2024-06-18] MEDS: BUPRENORPHINE/NALOXONE 8/2 MG TAB SL SCH (18:42)
[2024-06-18] MEDS: buprenorphine HCL 8 MG SUBL SL SCH (18:44)
[2024-06-18] MEDS: BUDESONIDE 0.25 MG/2 ML VIAL (PULMICORT) NEB SCH (19:25)
[2024-06-18] MEDS: FORMOTEROL 20 MCG/2 ML VIAL NEB SCH (19:26)
[2024-06-18] MEDS: METOPROLOL TARTRATE 25 MG TAB PO SCH (19:57)
[2024-06-18] MEDS ORDERED: METOPROLOL TARTRATE 25 MG TAB PO SCH (20:00)
[2024-06-19 08:39] LABS: Basophils # (auto) 0.03 K/uL (0.00-0.20); Basophils % (auto) 0.9 %; Eosinophils # (auto) 0.04 K/uL (0.00-0.50); Eosinophils % (auto) 1.2 %; Hematocrit (blood only) 39.5 % (37.0-47.0); Hemoglobin 12.8 g/dl (12.0-16.0); Immature Granulocytes # (auto) 0.01 K/uL (0.01-0.20); Immature Granulocytes % (auto) 0.3 %; Lymphocytes # (auto) 0.92 K/uL (1.20-3.40); Lymphocytes % (auto) 26.6 %; Mean Corpuscular Hgb Conc 32.4 g/dL (32.0-36.0); Mean Corpuscular Volume 89.4 fL (80.0-100.0); Monocytes # (auto) 0.28 K/uL (0.11-0.59); Monocytes % (auto) 8.1 %; Neutrophils # (auto) 2.18 K/uL (1.40-6.50); Neutrophils % (auto) 62.9 %; Platelet Count 222 K/uL (130-400); RDW Coefficient of Variation 16.4 % (11.5-14.5); RDW Standard Deviation 52.5 fL (36.4-46.3); Red Blood Count 4.42 M/uL (4.20-5.40); White Blood Count 3.46 K/ul (4.8-10.8)
[2024-06-19 08:40] LABS: Albumin Level 3.7 gm/dl (3.4-5.0); Bilirubin,Total 0.6 mg/dl (0.2-1.0); Calcium 9.1 mg/dl (8.6-10.3)
[2024-06-19 08:44] LABS: Estimated Average Glucose 103 mg/dl; Hemoglobin A1C 5.2 % (4.5-5.6)
[2024-06-19 08:46] LABS: Albumin Globulin Ratio 1.9 (0.9-2); Chol HDL Ratio 2.5 (0-5); Creatinine Clr Calc Pharmacy 111.4 ml/min; Total Protein 5.7 gm/dl (6.0-8.3)
[2024-06-19 08:51] LABS: Troponin I High Sensitivity 2.8 pg/ml (0-14)
[2024-06-19 09:00] LABS: Thyroid Stimulating Hormone 6.606 uIu/ml (0.300-4.500)
--- NOTE | 2024-06-19 09:02 | Orthopedic Consultation ---
Date of Service June 19, 2024 Assessment & Plan (1) Hematoma of right hip: - At this time, no urgent surgical indication at this time for the right hip hematoma. It does not seem to be compressing on any structures that are causing dysfunction. Will treat symptomatically and conservatively at this time: Javid wrap for compression as well as ice for pain. She may ambulate on the right lower extremity as tolerated and may perform range of motion of the right hip and knee as tolerated. -Would recommend nursing staff to place the Javid wrap on her thigh and also wrapping around her hips/torso to keep the Javid wrap in place. (2) Right shoulder pain: - Patient discussed that she is having right shoulder pain at today's visit secondary to her fall. States she has had a surgical history in this shoulder consistent with a right rotator cuff repair done arthroscopically. I have or dered an x-ray of the right shoulder to rule out any acute fractures, bony abnormalities or dislocations. We can follow-up with her once her right shoulder x-ray is completed. History of Present Illness Reason for Consultation: right leg hematoma Requesting Physician: . Attending Physician: Juve Brian MD Jess is a 69 year old female who is being consulted today for a hematoma fou nd in her right thigh. She has been admitted to the hospital for other medical reasons, including chest pain and shortness of breath x 1 week as well as bilateral lower extremity edema. Patient states that 1 week ago, she had a fall when she was in a store parking lot. She states that she tripped on the curb due to new boots that she was wearing. She states that she hit the ground hard. Per history and physical from hospitalist service, she was evaluated at [facility] where she was found to have a right leg hematoma but no fractures. She did have an abnormal heart rate at the time, however the patient left AMA because she did not want to be transferred to a different facility. On 06/18/2024, she did report to the [facility] emergency department for chest pain and shortness of breath. She was admitted to the hospital under the hospitalist service due to abnormal blood pressure, heart rate and recurrent chest pain. At today's visit, the patient states that her right hip/thigh is not terribly painful but she does notice that there is swelling, ecchymosis and tenderness when she touches the area. She does want to note, that she did have a hematoma on her left anterior chappell many years ago when an object struck the front of her leg. She states that it did blister and she had to have wound care involvement for quite some time. She wants to know if this is going to be the case for her right hip. Also to note, the patient wants to let me know that she is having anterior right shoulder pain. She states that she has difficulty performing range of motion of her right shoulder due to her right shoulder pain. She denies any numbness or tingling the right upper extremity. She states that her right shoulder has been hurting since the fall. She does state that she has an extensive surgical history in the right shoulder. I am unsure who the original surgeon was her or who the surgeon was as the patient does not give the best history, however she does state that there was a rotator cuff repair done arthroscopically in the past. Allergies Allergy/AdvReac Type Severity Reaction Status Date / Time aminophylline Allergy Intermediate hives Verified 02/03/22 12:30 Home Medications Medication Instructions Recorded Confirmed Type aspirin 81 mg tablet,delayed 81 mg PO QAM 03/19/18 06/18/24 History release (Abhilash Low Dose Aspirin) fluticasone 250 mcg-salmeterol 50 1 inh inhalation BID PRN Shortness 03/19/18 06/18/24 History mcg/dose blistr powdr for Of Breath inhalation (Advair Diskus) crutch #2 ea 12/23/18 02/03/22 Rx dandelion 1 tab PO UD 04/30/19 06/18/24 History hawthorn 1 ea PO UD 04/30/19 06/18/24 History cholecalciferol (vitamin D3) 50 2,000 units PO UD 04/08/21 06/18/24 History mcg (2,000 unit) capsule blood-glucose meter (OneTouch #1 ea 02/08/22 Rx Verio Reflect Meter) blood sugar diagnostic (Neusoft GroupTouch #100 ea 02/10/22 Rx Verio test strips) flash glucose sensor (FreeStyle #2 ea 02/10/22 Rx Afia 2 Sensor kit) lancets 33 gauge (OneTouch Delica #100 ea 02/10/22 Rx Lancets) buprenorphine HCl 8 mg sublingual 4 mg sublingual 06/18/24 History tablet Past Med/Surg History Problem List (Updated 06/19/24 @ 12:02 by Juve Brian MD) Hypotension Right shoulder pain Hematoma of right hip (Acute) Acute chest wall pain (Acute) Atrial fibrillation with rapid ventricular response (Acute) Malaise Dry mouth, unspecified Weight loss S/P gastric bypass Atrial fibrillation History of colon polyps Ambulatory dysfunction Vitamin D deficiency Urinary incontinence Status post placement of implantable loop recorder Pulmonary nodules Postural imbalance Palpitations PVC (premature ventricular contraction) PSVT (paroxysmal supraventricular tachycardia) Osteopenia LVH (left ventricular hypertrophy) Hydronephrosis Chronic pain due to trauma Chronic narcotic use Atrophy, kidney Osteoporosis Nocturnal hypoxemia Obesity Moderate obstructive sleep apnea does not use device Atrial fibrillation s/p cardioversion 07/2017-ASA only Medical History Atrial fibrillation Atrial fibrillation Cervical cancer CRPS (complex regional pain syndrome) Iron deficiency anemia following bariatric surgery Moderate obstructive sleep apnea No blood products Opiate dependence Opioid dependence Sepsis Tinnitus of both ears Surgical History History of adenoidectomy History of appendectomy History of cardioversion History of carpal tunnel surgery of left wrist History of colonoscopy with polypectomy (~2017) History of dilatation and curettage History of esophagogastroduodenoscopy (EGD) History of gastric bypass History of herniorrhaphy History of laminectomy History of loop recorder History of repair of rotator cuff History of surgery History of tonsillectomy History of tooth extraction History of total knee replacement Status post panniculectomy Status post total replacement of hip Family History Mother Vaginal cancer Family history of diabetes mellitus Aunt Family history of diabetes mellitus Grandmother (Maternal) Family history of diabetes mellitus Breast cancer Grandfather (Maternal) Family history of diabetes mellitus Other No family history of adverse response to anesthesia Denies family history of Prostate cancer Myocardial infarction Colorectal cancer Social History Smoking Status: Former smoker Age Quit Using Tobacco: 27; Second Hand Exposure: Yes ( A CHILD); Do You Dip or Chew Tobacco: No; Hx Alcohol Use: No Hx Substance Use: No Preferred Language: Andorran Communication Ability: Effective It Compliance Analyst Required: No Beliefs That Will Affect Care: None marital status: Current Living Situation: Spouse current occupational status: retired Other Information That Helps Us Care for You: No Feels Safe at Home: Yes Safety Concerns: Feels Safe At This Time Dental Care, Regularly: Yes Physical Activity Frequency Comment: limited due to hip- fracture of pelvis last year Assistive Devices: BiPap Review of Systems All systems reviewed & are unremarkable except as noted in HPI & below. Physical Exam General: Alert and oriented. In no acute distress at my visit. Right lower extremity: She has full range of motion of the right foot, ankle and knee. She is able to flex, extend as well as internally and actually rotate the hip. She does have ecchymosis on the lateral aspect of the hip and thigh. It does seem to be healing as it is yellowing. She is slightly tender to the area. There is swelling on the lateral hip. Neurovascularly intact right lower extremity. In regards to her right shoulder: The exam was limited due to her position in the hospital bed. She does perform full and painless range of motion of the right hand, wrist and elbow. I did perform passive range of motion of her right shoulder and unable to get her to 90 degrees forward flexion, 90 degrees abduction. She is able to internally externally rotate with my assistance. When patient tries to do this independently, she has a difficult time secondary to pain with forward flexion, abduction and other range of motion exercises. She is tender to the anterior aspect of the right shoulder. She is neurovascularly intact in the right upper extremity. Constitutional WD/WN, vitals as above Cardiovascular Vascularity grossly intact Musculoskeletal Please see above Psychiatric A+Ox3, euthymic affect Results & Data Results & Data Laboratory Results Laboratory Results - last 48 hr 06/18/24 06/18/24 06/18/24 10:00 10:08 10:22 WBC 4.29 L RBC 4.49 Hgb 12.8 POC Hgb 13.9 Hct 38.9 POC Hct 41 MCV 86.6 MCH 28.5 MCHC 32.9 RDW Std Deviation 49.4 H RDW Coeff of Hetal 16.0 H Plt Count 240 MPV 9.9 Immature Gran % (Auto) 0.2 Neut % (Auto) 68.6 Lymph % (Auto) 20.5 Mcculloch % (Auto) 9.1 Eos % (Auto) 0.9 Baso % (Auto) 0.7 Neut # (Auto) 2.94 Lymph # (Auto) 0.88 L Mcculloch # (Auto) 0.39 Eos # (Auto) 0.04 Baso # (Auto) 0.03 Immature Gran # (Auto) 0.01 PT 11.0 INR 1.0 POC Sodium 141 Sodium 141 POC Potassium 3.6 Potassium 3.8 POC Chloride 107 Chloride 107 Carbon Dioxide 27 POC Total CO2 22 L Anion Gap 7 POC Anion Gap 16.0 POC BUN 17 BUN 17 Creatinine 0.57 L POC Creatinine 0.6 Est Cr Clr Drug Dosing 91.4 eGFR 97.10 BUN/Creatinine Ratio 29.8 H Glucose 94 POC Glucose (other) 93 Estimat Average Glucose Hemoglobin A1c Lactate Calcium 9.7 POC Ioniz Calcium Juan Diego 1.16 Magnesium Total Bilirubin 0.8 AST 23 ALT 15 Alkaline Phosphatase 57 Troponin I High Sens 3.4 B-Natriuretic Peptide 457 H Total Protein 6.8 Albumin 4.3 Globulin 2.5 Albumin/Globulin Ratio 1.7 Triglycerides Cholesterol LDL Cholesterol, Calc VLDL Cholesterol, Calc HDL Cholesterol Cholesterol/HDL Ratio Lipase 19 Procalcitonin TSH Blood Type O Positive Antibody Screen NEGATIVE 06/18/24 06/18/24 06/19/24 11:46 14:14 08:03 WBC 3.46 L RBC 4.42 Hgb 12.8 POC Hgb Hct 39.5 POC Hct MCV 89.4 MCH 29.0 MCHC 32.4 RDW Std Deviation 52.5 H RDW Coeff of Hetal 16.4 H Plt Count 222 MPV 10.0 Immature Gran % (Auto) 0.3 Neut % (Auto) 62.9 Lymph % (Auto) 26.6 Mcculloch % (Auto) 8.1 Eos % (Auto) 1.2 Baso % (Auto) 0.9 Neut # (Auto) 2.18 Lymph # (Auto) 0.92 L Mcculloch # (Auto) 0.28 Eos # (Auto) 0.04 Baso # (Auto) 0.03 Immature Gran # (Auto) 0.01 PT INR POC Sodium Sodium 139 POC Potassium Potassium 4.0 POC Chloride Chloride 108 H Carbon Dioxide 22 POC Total CO2 Anion Gap 9 POC Anion Gap POC BUN BUN 16 Creatinine 0.47 L POC Creatinine Est Cr Clr Drug Dosing 111.4 eGFR 101.72 BUN/Creatinine Ratio 34.0 H Glucose 89 POC Glucose (other) Estimat Average Glucose 103 Hemoglobin A1c 5.2 Lactate 1.0 0.8 Calcium 9.1 POC Ioniz Calcium Juan Diego Magnesium 2.0 Total Bilirubin 0.6 AST 33 ALT 22 Alkaline Phosphatase 59 Troponin I High Sens 2.8 B-Natriuretic Peptide Total Protein Albumin Globulin Albumin/Globulin Ratio Triglycerides Cholesterol LDL Cholesterol, Calc VLDL Cholesterol, Calc HDL Cholesterol Cholesterol/HDL Ratio Lipase Procalcitonin < 0.02 TSH Blood Type Antibody Screen 06/19/24 06/19/24 06/19/24 08:03 08:03 08:03 WBC RBC Hgb POC Hgb Hct POC Hct MCV MCH MCHC RDW Std Deviation RDW Coeff of Hetal Plt Count MPV Immature Gran % (Auto) Neut % (Auto) Lymph % (Auto) Mcculloch % (Auto) Eos % (Auto) Baso % (Auto) Neut # (Auto) Lymph # (Auto) Mcculloch # (Auto) Eos # (Auto) Baso # (Auto) Immature Gran # (Auto) PT INR POC Sodium Sodium POC Potassium Potassium POC Chloride Chloride Carbon Dioxide POC Total CO2 Anion Gap POC Anion Gap POC BUN BUN Creatinine POC Creatinine Est Cr Clr Drug Dosing eGFR BUN/Creatinine Ratio Glucose POC Glucose (other) Estimat Average Glucose Hemoglobin A1c Lactate Calcium POC Ioniz Calcium Juan Diego Magnesium Total Bilirubin AST ALT Alkaline Phosphatase Troponin I High Sens Cancelled B-Natriuretic Peptide Total Protein 5.7 L Albumin 3.7 Globulin 2.0 L Albumin/Globulin Ratio 1.9 Triglycerides 75 Cancelled Cholesterol 134 Cancelled LDL Cholesterol, Calc 65 VLDL Cholesterol, Calc HDL Cholesterol Cholesterol/HDL Ratio Lipase Procalcitonin TSH Blood Type Antibody Screen 06/19/24 06/19/24 06/19/24 08:03 08:03 08:03 WBC RBC Hgb POC Hgb Hct POC Hct MCV MCH MCHC RDW Std Deviation RDW Coeff of Hetal Plt Count MPV Immature Gran % (Auto) Neut % (Auto) Lymph % (Auto) Mcculloch % (Auto) Eos % (Auto) Baso % (Auto) Neut # (Auto) Lymph # (Auto) Mcculloch # (Auto) Eos # (Auto) Baso # (Auto) Immature Gran # (Auto) PT INR POC Sodium Sodium POC Potassium Potassium POC Chloride Chloride Carbon Dioxide POC Total CO2 Anion Gap POC Anion Gap POC BUN BUN Creatinine POC Creatinine Est Cr Clr Drug Dosing eGFR BUN/Creatinine Ratio Glucose POC Glucose (other) Estimat Average Glucose Hemoglobin A1c Lactate Calcium POC Ioniz Calcium Juan Diego Magnesium Total Bilirubin AST ALT Alkaline Phosphatase Troponin I High Sens B-Natriuretic Peptide Total Protein Albumin Globulin Albumin/Globulin Ratio Triglycerides Cholesterol LDL Cholesterol, Calc Cancelled VLDL Cholesterol, Calc 15 Cancelled HDL Cholesterol 54 Cancelled Cholesterol/HDL Ratio 2.5 Lipase Procalcitonin TSH Blood Type Antibody Screen 06/19/24 08:03 WBC RBC Hgb POC Hgb Hct POC Hct MCV MCH MCHC RDW Std Deviation RDW Coeff of Hetal Plt Count MPV Immature Gran % (Auto) Neut % (Auto) Lymph % (Auto) Mcculloch % (Auto) Eos % (Auto) Baso % (Auto) Neut # (Auto) Lymph # (Auto) Mcculloch # (Auto) Eos # (Auto) Baso # (Auto) Immature Gran # (Auto) PT INR POC Sodium Sodium POC Potassium Potassium POC Chloride Chloride Carbon Dioxide POC Total CO2 Anion Gap POC Anion Gap POC BUN BUN Creatinine POC Creatinine Est Cr Clr Drug Dosing eGFR BUN/Creatinine Ratio Glucose POC Glucose (other) Estimat Average Glucose Hemoglobin A1c Lactate Calcium POC Ioniz Calcium Juan Diego Magnesium Total Bilirubin AST ALT Alkaline Phosphatase Troponin I High Sens B-Natriuretic Peptide Total Protein Albumin Globulin Albumin/Globulin Ratio Triglycerides Cholesterol LDL Cholesterol, Calc VLDL Cholesterol, Calc HDL Cholesterol Cholesterol/HDL Ratio Cancelled Lipase Procalcitonin TSH Cancelled Blood Type Antibody Screen Diagnostic Findings Abdomen pelvis CT on 06/18/2024: IMPRESSION: 1. Soft tissue hematoma lateral to the right hip with no underlying fracture seen. 2. Gallstones without evidence of acute cholecystitis. Mild dilatation of the common bile duct. 3. No other acute findings seen.. PG Care Time/CCT Total # of Minutes Spent Total Time Spent with Patient: Total time spent is greater than 50% in coordination of care (as documented) at patient's floor/unit and/or counseling patient: Coding Level of Care Code 71169 IN/OBS CONSULT LVL 4,60M Diagnoses Hematoma of right hip S70.01XA Right shoulder pain M25.511
[2024-06-19] MEDS: CHOLECALCIFEROL 25 MCG (1000 UNITS) TAB PO SCH (09:03)
--- NOTE | 2024-06-19 09:03 | Cardiology Consultation ---
Date of Consultation June 19, 2024 Assessment & Plan (1) Atrial fibrillation with rapid ventricular response: Plan Assessment: 69 year old female presents for evaluation of right hip pain/hematoma after sustaining a fall. Found to be in Atrial fibrillation with RVR Plan: 1. A-fib with RVR -patient with known history of P. A-fib. -Pacemaker interrogation shows that patient has been in persistent atrial fibrillation for at least 3 months and likely longer. She has also had extreme rate elevation upwards of the 200's -Echocardiogram shows mildly reduced EF likely in response to tachycardia, poorly controlled A-fib -Patient has refused rate control medications in the past as well as anticoagulation. Her answer is due to distrust of the pharmaceutical industry. -Explained in detail to the patient that her persistent atrial fibrillation with elevated rates has now led to increase stress on the heart. She is a poor candidate for an elective cardioversion, not only due to refusal for anticoagulation, but her left atrium is severely dilated -Patient currently on Amiodarone gtt with elevated rates. We will discontinue in favor of starting Digoxin. Given digoxin 250mcg IV push x1 dose now, and repeat in 6 hours. Patient will then start digoxin 250mcg PO Daily tomorrow. -CHADS2-VASC score 3 with recommendation for starting anti-coagulation. Continues to decline at this time. Patient verbalizes understanding of risk for a thrombo-embolic event in the setting of atrial fibrillation and is willing to accept those risk at this time. -Blood pressure controlled. -Continue Lopressor 25mg PO N7Clipr at this time. Case has been discussed with Dr. Pham. Further recommendations regarding plan of care as per his assessment. I spent a total of 40 minutes on the date of service in preparation, delivery, documentation of the care provided to the patient excluding any time spent in the performance of separately billed services. RAMOS [facility] Cardiology [facility] Supervising Physician Co-Signing Physician Notes I have personally performed a history and physical examination on the patient. I have reviewed the advance practitioner's documentation, and I agree with, and take responsibility for the plan of care. 69-year-old female with persistent atrial fibrillation since February 2024 per pacemaker interrogation. Rapid ventricular response noted. Echocardiogram demonstrating mild LV systolic dysfunction. She has declined AV man blocking agents and anticoagulation previously. Stroke risk reviewed. Successful rhythm control strategy less likely in the setting of severe left atrial enlargement. * Recommend discontinuation of amiodarone in favor of metoprolol plus digoxin. * Recommend initiation of anticoagulation with IV heparin. (Patient declines) * Transition to Eliquis at discharge. * Discussed outpatient referral to electrophysiology to consider ablation * Maintain serum potassium greater than 4.0, and magnesium greater than 2.0. I spent a total of 45 minutes on the date of service in preparation, delivery, and documentation of the care provided to this patient, excluding any time spent in the performance of separately billed services. Lefty Pham DO, [facility] History of Present Illness Reason for Consultation: A-fib with RVR; and hypotension [facility]ing [facility] Attending Physician: Juve Brian MD History of Present Illness HPI: Patient is a 69 year old female with PMHx significant for P. A-fib declined rate control medications and anticoagulation, LVH, Sleep apnea, vitamin D def, mitral valve insufficiency, and prior opioid dependence that is currently on Subutex (following with Addiction medicine) who presented to the ER for right hip castaneda, and shortness of breath x1 week. Patient had slipped and fell outside of a local convenient store reporting it was due to her shoes. She had seen her addiction medicine doctor on 06/10/2024 who had recommended that patient be seen in the ER for her fall. She had gone to [facility] ER, was found to be in A-fib with RVR, signed out AMA. Through a communication with [facility]. Patient contacted her primary wine fermenter on 06/17 for recommendation for her hip pain and was advised she needed to follow up with her PCP. Patient reported that she does not have one. She went on to report the fol lowing: Patient calling in -- states she does not have a PCP. Pt states she went to the [facility] ED following her appointment with Dr. Mantilla "and that turned out to be a really stupid experience -- they did not listen to a word I said and argued with everything I said. There are so many fallacies in the doctor's note that I hesitate to even get you access to the notes or the lab work or the stuff they did do." Pt states she did have a CT scan with and without contrast. States no fractures were seen, but she was told she has pleural effusion and atelectasis. Patient reports she is still having pain with inspiration. Pt also reports "giant hematoma" on her "right upper femur/hip area." Advised patient to seek re-evaluation at urgent care or ED. Pt states she had already been leaning that way and was just trying to determine where she wanted to go, but that she would seek medical care today. EKG on admission demonstrates A-fib with RVR rate 139bpm. Repeat EKG today shows A-fib with RVR with PVCs rate 102bpm Chest xray IMPRESSION: Atelectasis versus early pneumonia in the lung bases. No other acute findings seen. Abd/Pelvis CT IMPRESSION: 1. Soft tissue hematoma lateral to the right hip with no underlying fracture seen. 2. Gallstones without evidence of acute cholecystitis. Mild dilatation of the common bile duct. 3. No other acute findings seen.. CT Chest IMPRESSION: Small right pleural effusion. CT number suggests this is fluid rather than hemothorax. Cardiomegaly is present. No definite evidence of acute rib fracture. L1 compression fracture associated with spinal stenosis appears to be unchanged when compared with 2019. BNP mild elevation TSH 6.6 Free T4 pending Troponin negative x2 Patient placed on amiodarone gtt. Declined heparin gtt Upon seeing patient today she is sitting up on the side of the bed in no acute distress. Review of telemetry demonstrates A-fib with PVC rates 140-160's She denies feelings of chest pain, pressure palpitations. No shortness of breath, but does endorse lower extremity edema. She is still hesitant to anticoagulation expressing concerns over the pharmaceutical industry Allergies Allergy/AdvReac Type Severity Reaction Status Date / Time aminophylline Allergy Intermediate hives Verified 02/03/22 12:30 canola oil Allergy Unknown Unknown Verified 06/19/24 13:11 corn oil Allergy Unknown Unknown Verified 06/19/24 13:13 cottonseed oil Allergy Unknown Unknown Verified 06/19/24 13:06 olive oil Allergy Unknown Unknown Verified 06/19/24 13:06 peanut oil Allergy Unknown Unknown Verified 06/19/24 13:06 safflower oil Allergy Unknown Unknown Verified 06/19/24 13:13 sesame oil Allergy Unknown Unknown Verified 06/19/24 13:06 sunflower oil Allergy Unknown Unknown Verified 06/19/24 13:06 Home Medications Medication Instructions Recorded Confirmed Type aspirin 81 mg tablet,delayed 81 mg PO QAM 03/19/18 06/18/24 History release (Abhilash Low Dose Aspirin) fluticasone 250 mcg-salmeterol 50 1 inh inhalation BID PRN Shortness 03/19/18 06/18/24 History mcg/dose blistr powdr for Of Breath inhalation (Advair Diskus) crutch #2 ea 12/23/18 02/03/22 Rx dandelion 1 tab PO UD 04/30/19 06/18/24 History hawthorn 1 ea PO UD 04/30/19 06/18/24 History cholecalciferol (vitamin D3) 50 2,000 units PO UD 04/08/21 06/18/24 History mcg (2,000 unit) capsule blood-glucose meter (REM ENTERPRISETouch #1 ea 02/08/22 Rx Verio Reflect Meter) blood sugar diagnostic (OneTouch #100 ea 02/10/22 Rx Verio test strips) flash glucose sensor (FreeStyle #2 ea 02/10/22 Rx Afia 2 Sensor kit) lancets 33 gauge (OneTouch Delica #100 ea 02/10/22 Rx Lancets) buprenorphine HCl 8 mg sublingual 4 mg sublingual 06/18/24 History tablet Patient History Medical History Atrial fibrillation Atrial fibrillation Cervical cancer CRPS (complex regional pain syndrome) Iron deficiency anemia following bariatric surgery Moderate obstructive sleep apnea No blood products Opiate dependence Opioid dependence Sepsis Tinnitus of both ears Surgical History History of adenoidectomy History of appendectomy History of cardioversion History of carpal tunnel surgery of left wrist History of colonoscopy with polypectomy (~2018) History of dilatation and curettage History of esophagogastroduodenoscopy (EGD) History of gastric bypass History of herniorrhaphy History of laminectomy History of loop recorder History of repair of rotator cuff History of surgery History of tonsillectomy History of tooth extraction History of total knee replacement Status post panniculectomy Status post total replacement of hip Family History Mother Vaginal cancer Family history of diabetes mellitus Aunt Family history of diabetes mellitus Grandmother (Maternal) Family history of diabetes mellitus Breast cancer Grandfather (Maternal) Family history of diabetes mellitus Other No family history of adverse response to anesthesia Denies family history of Prostate cancer Myocardial infarction Colorectal cancer Social History Smoking Status: Former smoker Age Quit Using Tobacco: 27; Second Hand Exposure: Yes ( A CHILD); Do You Dip or Chew Tobacco: No; Hx Alcohol Use: No Hx Substance Use: No Preferred Language: [place] Islander Communication Ability: Effective Interlocker Required: No Beliefs That Will Affect Care: None marital status: Current Living Situation: Spouse current occupational status: retired Other Information That Helps Us Care for You: No Feels Safe at Home: Yes Safety Concerns: Feels Safe At This Time Dental Care, Regularly: Yes Physical Activity Frequency Comment: limited due to hip- fracture of pelvis last year Assistive Devices: None Review of Systems Review of Systems: All systems reviewed & are unremarkable except as noted in HPI & below Physical Exam Constitutional: well developed and well nourished; no acute distress and not ill appearing Neck: normal visual inspection and trachea midline Respiratory: normal respiratory effort, lungs clear to auscultation Auscultation: no crackles, no rales, no rhonchi and no wheezes Cardiovascular: Rate/Rhythm: + tachycardic and + irregularly irregular Heart Sounds: normal S1, normal S2 and + murmur (+1/6 systolic) Vessels: dorsalis pedis pulses present; no JVD Extremities: + edema (Trace to +1 BLE edema, wearing compression stockings ) Skin: no rashes, warm and dry + ecchymosis (Right upper leg and hip ) Psychiatric: A+Ox3, euthymic affect Results & Data Vital Signs (Past 12 Hours) Vital Signs Temp Pulse Pulse Resp BP Pulse Ox O2 Del Method 06/19/24 07:52 36.4 C L 88 18 91/65 L 96 Nasal Cannula 06/19/24 07:32 106 H 06/19/24 07:04 80 16 96 Nasal Cannula 06/19/24 04:15 94/50 L 06/19/24 03:38 36.3 C L 87 16 78/57 L 99 Nasal Cannula 06/19/24 00:12 36.3 C L 88 87/64 L 93 Room Air 06/18/24 22:38 120 H O2 Flow Rate 06/19/24 07:52 06/19/24 07:32 06/19/24 07:04 1 06/19/24 04:15 06/19/24 03:38 06/19/24 00:12 06/18/24 22:38 Laboratory Results Cardiac Enzymes 06/19/24 06/19/24 Range/Units 08:03 08:03 AST 33 (13-39) U/L Troponin I High Sens 2.8 Cancelled (0-14) pg/ml Lipids 06/19/24 06/19/24 06/19/24 Range/Units 08:03 08:03 08:03 Triglycerides 75 Cancelled (0-150) mg/dl Cholesterol 134 Cancelled (0-200) mg/dl HDL Cholesterol 54 mg/dl Cholesterol/HDL Ratio (0-5) 06/19/24 06/19/24 Range/Units 08:03 08:03 Triglycerides (0-150) mg/dl Cholesterol (0-200) mg/dl HDL Cholesterol Cancelled mg/dl Cholesterol/HDL Ratio 2.5 Cancelled (0-5) CBC 06/19/24 Range/Units 08:03 WBC 3.46 L (4.8-10.8) K/ul RBC 4.42 (4.20-5.40) M/uL Hgb 12.8 (12.0-16.0) g/dl Hct 39.5 (37.0-47.0) % Plt Count 222 (130-400) K/uL Neut # (Auto) 2.18 (1.40-6.50) K/uL Lymph # (Auto) 0.92 L (1.20-3.40) K/uL [place] # (Auto) 0.28 (0.11-0.59) K/uL Eos # (Auto) 0.04 (0.00-0.50) K/uL Baso # (Auto) 0.03 (0.00-0.20) K/uL Comprehensive Metabolic Panel 06/19/24 Range/Units 08:03 Sodium 139 (136-145) mmol/L Potassium 4.0 (3.5-5.1) mmol/L Chloride 108 H (98-107) mmol/L Carbon Dioxide 22 (21-32) mmol/L BUN 16 (6-23) mg/dl Creatinine 0.47 L (0.6-1.2) mg/dl Glucose 89 (70-99(Fasting)) mg/dl Calcium 9.1 (8.6-10.3) mg/dl AST 33 (13-39) U/L ALT 22 (7-52) U/L Alkaline Phosphatase 59 (34-104) U/L Total Protein 5.7 L (6.0-8.3) gm/dl Albumin 3.7 (3.4-5.0) gm/dl Intake and Output 06/19/24 06/19/24 06/19/24 06:59 14:59 22:59 Intake Total 500 / 2150.2 450 / 450 Output Total 550 / 550 Balance 500 / 2150.2 -100 / -100 Intake: IV 300 / 1800.2 Amiodarone / D5w 360 mg In 200 200 / 200 ml @ 0.5 MG/MIN 16.667 mls/hr IV .Q12H [facility] Rx#:[id number] Doxycycline Hyclate 100 mg In 100 / 200 Dextrose 5% Mini-B 100 ml @ 50 mls/hr IV Q12H [facility] Rx#:[id number] Oral 200 / 350 450 / 450 Output: Urine 550 / 550 Other: Weight 78.6 kg Weight Measurement Method Standing Scale
[2024-06-19 09:42] LABS: T4 Free Thyroxine 0.87 ng/dl (0.61-1.60)
--- NOTE | 2024-06-19 09:47 | Electrocardiogram Report ---
Test Reason : Blood Pressure : */* mmHG Vent. Rate : 139 BPM Atrial Rate : * BPM P-R Int : * ms QRS Dur : 82 ms QT Int : 272 ms P-R-T Axes : * 5 14 degrees QTcB Int : 413 ms Atrial fibrillation with rapid ventricular response with premature ventricular or aberrantly conducte d complexes Low voltage QRS Nonspecific T wave abnormality Abnormal ECG When compared with ECG of 18-Jun-2024 09:52, No significant change was found Confirmed by Dusty Ramirez ([id number]) on 06/19/2024 9:47:04 AM Referred By: REFERRED SELF Confirmed By: Dusty Ramirez
--- NOTE | 2024-06-19 10:07 | Electrocardiogram Report ---
Test Reason : Blood Pressure : */* mmHG Vent. Rate : 102 BPM Atrial Rate : * BPM P-R Int : * ms QRS Dur : 90 ms QT Int : 394 ms P-R-T Axes : * 27 12 degrees QTcB Int : 513 ms Atrial fibrillation with rapid ventricular response with premature ventricular or aberrantly conducte d complexes Low voltage QRS Nonspecific T wave abnormality Prolonged QT Abnormal ECG When compared with ECG of 18-Jun-2024 16:37, (unconfirmed) Nonspecific T wave abnormality, improved in Lateral leads Confirmed by Dusty Ramirez ([id number]) on 06/19/2024 10:07:13 AM Referred By: REFERRED SELF Confirmed By: Dusty Ramirez
--- NOTE | 2024-06-19 10:40 | XRay Report ---
XR shoulder RT min 2V routine CLINICAL HISTORY: right shoulder pain COMPARISON: None FINDINGS: There is prior rotator cuff repair. There are severe glenohumeral degenerative changes. Th ere is moderate AC joint osteoarthritis. There are chronic calcifications superior to the humeral hea d consistent with calcific tendinitis. No acute fracture or dislocation. IMPRESSION: 1. No fracture seen. 2. Severe degenerative changes. ACT 112: Negative or not required by law. Electronically signed by: Brandon Nix M.D. 06/19/2024 10:39 AM
--- NOTE | 2024-06-19 11:56 | Hospitalist Progress Note ---
Date of Service June 19, 2024 Assessment & Plan (1) Hematoma of right hip: Plan: -2/2 mechanical fall one week ago Plan: -appreciate ortho recs -Continue home buprenorphine for pain (2) Atrial fibrillation: Plan: -noted to be in RVR upon admission -s/p amiodarone and metoprolol which controlled rate -has notable severe biatrial enlargement on echo as well Plan: -cardiology consult, appreciate recs -pacemaker interrogation (3) Hypotension: Plan: -patient has long hx of chronic hypotension -asymptomatic at this time Plan: -monitor BP -stop abx as no cough, chest xray shows small right pleural effusion -start IS (4) Acute chest wall pain: Plan: -appears to likely be costochondritis given reproducible to palpation, negative troponins Plan: -voltaren cream (5) LVH (left ventricular hypertrophy): Plan: -per echo results (6) S/P gastric bypass: Plan: -noted (7) Chronic pain due to trauma: Plan: -past has past hx of chronic pain syndrome with significant opioid use -now on buprenorphine Plan: -continue buprenorphine -if pain uncontrolled will do full agonist therapy prn (8) Right shoulder pain: Plan: -significant pain and loss of ROM in right shoulder post fall -xray without acute findings Plan: -appreciate ortho recs -MRI right shoulder ordered for further evaluation -PT/OT placed Plan Feeding/fluids: heart healthy Analgesia: buprenorphine, prn full agonsit therapy Sedation: na Thromboprophylaxis: start SCDs Head up position: na Ulcer prophylaxis: na Glycemic control: na Spontaneous breathing trial: na Bowel care: start miralax prn Indwelling catheter removal: na Deescalation of antibiotics: stop abx I spent a total of 50 minutes in direct patient care, including [id number] time with the patient and/or family, reviewing medical records, ordering and reviewing diagnostic tests, and coordinating care with other healthcare providers. This time includes: history taking, physical examination, medical decision making, counseling, ECG interpretation, imaging interpretation, lab interpretation, orders, and education, excluding time spent in the performance of separately billed services. Admission and Anticipated Discharge Date Admission Date: June 18, 2024 Subjective 69-year-old female with history of atrial fibrillation, status post gastric bypass, status post pacemaker placement who presents after a fall 1 week ago for further evaluation. In the ED, noted to have large right-sided hip hematoma, and also to be in atrial fibrillation with RVR, and admitted to medicine for further workup. Patient improved significantly with amiodarone. Patient seen and examined at bedside patient is doing better this morning. She states 1 week ago she fell onto her right side. Since then symptoms have getting steadily worse. She states her whole right leg was swollen at 1 point. She also states her right shoulder has an almost complete lack of mobility since the incident. This right shoulder is status post arthroplasty laparoscopically. She states she has had issues with atrial fibrillation for quite a while now. She had a cardioversion in the past. She also states she has been having chest pain, that is reproducible, throughout her sternum. Denies radiation of this chest pain. Is having a little bit of shortness of breath as well. Review of Systems Review of Systems: CONSTITUTIONAL: right leg pain, weakness EYES: Patient denies any visual symptoms. EARS, NOSE, AND THROAT: No difficulties with hearing. No symptoms of rhinitis or sore throat. CARDIOVASCULAR: reproducible chest pain RESPIRATORY: No dyspnea on exertion, no wheezing or cough. GI: No nausea, vomiting, diarrhea, constipation, abdominal pain, hematochezia or melena. : No urinary hesitancy or dribbling. No nocturia or urinary frequency. No abnormal urethral discharge. MUSCULOSKELETAL: weakness, right shoulder pain/stiffness NEUROLOGIC: No chronic headaches, no seizures. Patient denies numbness, tingling or weakness. PSYCHIATRIC: Patient denies problems with mood disturbance. No problems with anxiety. ENDOCRINE: No excessive urination or excessive thirst. DERMATOLOGIC: Patient denies any rashes or skin changes. Physical Exam Physical Exam: Gen: A&O 3 NAD HEENT: NCAT, EOMI, not icteric. External ears normal. No rhinorrhea. Moist mucous membranes. Neck: Supple, full range of motion, no observable masses, No meningeal sign. Lungs: No Respiratory distress. CV: RRR, no edema. Abdomen: Soft, nondistended, No rebound tenderness. MSK: unable to move right shoulder in abduction more than 30 degrees, any degrees of adduction, 45 degrees in flexion, 20 degrees in extension Skin: No rashes, petechiae, lesions. Normal color per patient. Neuro: Normal Gait, Grossly intact. Psych: Appropriate for situation. Results & Data Results & Data Vital Signs (Past 12 Hours) Vital Signs Temp Pulse Pulse Resp BP Pulse Ox O2 Del Method 06/19/24 09:30 Room Air 06/19/24 07:52 36.4 C L 88 18 91/65 L 96 Nasal Cannula 06/19/24 07:32 106 H 06/19/24 07:04 80 16 96 Nasal Cannula 06/19/24 04:15 94/50 L 06/19/24 03:38 36.3 C L 87 16 78/57 L 99 Nasal Cannula 06/19/24 00:12 36.3 C L 88 87/64 L 93 Room Air O2 Flow Rate 06/19/24 09:30 06/19/24 07:52 06/19/24 07:32 06/19/24 07:04 1 06/19/24 04:15 06/19/24 03:38 06/19/24 00:12 Laboratory Results - Personally evaluated, troponins are negative, EKG shows atrial fibrillation, hypotension appears to be chronic in nature, CT scan shows a soft tissue hematoma, echo reveals an EF of 45% with severe biatrial dilation Medications Administered Budesonide (Budesonide 0.25 Mg/2 Ml Vial (Pulmicort)) 0.25 mg NEB BIDR [facility] Stop: 07/18/24 18:59 Last Admin: 06/19/24 07:03 Dose: 0.25 mg Documented By: Admin: 06/18/24 19:25 Dose: 0.25 mg Documented By: TMP Buprenorphine HCl (Buprenorphine Hcl 8 Mg Subl) 4 mg SL QID [facility] Stop: 07/18/24 18:44 Last Admin: 06/19/24 09:02 Dose: 4 mg Documented By: Admin: 06/18/24 22:12 Dose: 4 mg Documented By: Admin: 06/18/24 18:44 Dose: 4 mg Documented By: AM Formoterol Fumarate (Formoterol 20 Mcg/2 Ml Vial) 20 mcg NEB BIDR [facility] Stop: 07/18/24 18:59 Last Admin: 06/19/24 07:03 Dose: 20 mcg Documented By: Admin: 06/18/24 19:26 Dose: 20 mcg Documented By: TMP Amiodarone HCl/Dextrose (Nexterone / D5w) 360 mg in 200 mls @ 16.667 mls/hr IV .Q12H [facility] Stop: 07/18/24 18:14 Last Admin: 06/19/24 03:42 Dose: 0.5 mg/min, 16.7 mls/hr Documented By: UNIQUE Co-signed By: ROMAN Infusion: 06/19/24 03:42 Dose: Infused Documented By: UNIQUE Co-signed By: ROMAN Admin: 06/18/24 18:00 Dose: 0.5 mg/min, 16.7 mls/hr Documented By: NIGEL Co-signed By: ANALISA Ceftriaxone Sodium (Rocephin) 2,000 mg in 50 mls @ 100 mls/hr IV Q24H [facility] Stop: 06/23/24 16:29 Last Infusion: 06/18/24 18:35 Dose: Infused Documented By: Admin: 06/18/24 17:46 Dose: 100 mls/hr Documented By: NIGEL Doxycycline Hyclate 100 mg/ (Dextrose) 100 mls @ 50 mls/hr IV Q12H [facility] Stop: 06/23/24 16:59 Last Infusion: 06/19/24 06:08 Dose: Infused Documented By: Admin: 06/19/24 04:06 Dose: 50 mls/hr Documented By: Infusion: 06/18/24 20:49 Dose: Infused Documented By: Admin: 06/18/24 18:20 Dose: 50 mls/hr Documented By: AM Metoprolol Tartrate (Metoprolol Tartrate 25 Mg Tab) 25 mg PO Q6H [facility] Stop: 07/18/24 19:59 Last Admin: 06/19/24 09:03 Dose: 25 mg Documented By: Admin: 06/19/24 01:38 Dose: Not Given Documented By: Admin: 06/18/24 19:57 Dose: Not Given Documented By: UNIQUE Miscellaneous (Order Awaiting Action: Advair Diskus 250/50) 1 each N/A QS [facility] Stop: 07/19/24 00:00 Last Admin: 06/19/24 07:35 Dose: Not Given Documented By: Admin: 06/19/24 00:07 Dose: Not Given Documented By: UNIQUE Vitamin D (Cholecalciferol 25 Mcg (1000 Units) Tab) 50 mcg PO DAILY [facility] Stop: 07/19/24 08:59 Last Admin: 06/19/24 09:03 Dose: 50 mcg Documented By: COLTON (1) Hematoma of right hip Encounter type: initial encounter Qualified Code(s): S70.01XA - Contusion of right hip, initial encounter (2) Atrial fibrillation Atrial fibrillation type: paroxysmal Qualified Code(s): I48.0 - Paroxysmal atrial fibrillation (3) Hypotension Hypotension type: idiopathic hypotension Qualified Code(s): I95.0 - Idiopathic hypotension (8) Right shoulder pain Chronicity: acute Qualified Code(s): M25.511 - Pain in right shoulder
[2024-06-19] MEDS ORDERED: BUDESONIDE 0.25 MG/2 ML VIAL (PULMICORT) NEB PRN (11:59)
[2024-06-19] MEDS ORDERED: FORMOTEROL 20 MCG/2 ML VIAL NEB PRN (11:59)
[2024-06-19] MEDS ORDERED: POLYETHYLENE (MIRALAX) 17 GM PACK PO PRN (12:05)
[2024-06-19] MEDS: DIGOXIN 250 MCG in SYRINGE 9 ML IV STA (16:53)
[2024-06-19] MEDS: DIGOXIN 250 MCG in SYRINGE 9 ML IV ONE (22:37)
[2024-06-19] MEDS: DICLOFENAC SOD 1% GEL 100 GM TUBE EXT SCH (22:37)
--- NOTE | 2024-06-20 07:32 | Orthopedic Progress Note ---
Date of Service June 20, 2024 Assessment & Plan (1) Hematoma of right hip: (2) Arthritis of right shoulder: She was educated on the xray findings of the shoulder. She has fairly advanced arthritis of her shoulder and likely a rotator cuff tear. She does not feel that she needs a sling at this point. I encouraged her to use her arm for normal daily activities and we will see over time if her function of the arm improves. Therapy has been ordered but I did tell her that if doing any exercises with the shoulder is too painful then she can back off and increase as tolerated. MRI of the shoulder has been ordered apparently as well. If she continues to have pain she may benefit from steroid or prp injections (which she had before) as an outpatient. She is not interested in any surgery. She said she developed complex regional pain syndrome after her tka. Continue observation for the thigh hematoma as well. This can take several months to resorb. She can wbat. Subjective . 69 year old patient with right thigh hematoma and right shoulder pain after a fall about a week ago. Her thigh is still painful and she said it hurt some to have the compression wrap last night. She continues to have right shoulder pain and limited mobility with it. She does have a history of rotator cuff repair in 2008 at [facility] and says her shoulder was doing okay until she fell. She has continued sternal pain since the fall as well and said it hurts to linda ath. This has been ongoing since her fall last week. Review of Systems All systems reviewed & are unremarkable except as noted in HPI & below. Physical Exam .alert and oriented. NAD. Sitting on the side of her bed. Right thigh is wrapped with an liset wrap, which I did not remove. She is able to flex her hip, do straight leg raise, dorsiflex, plantarflex. Thigh compartments soft. She has painful and limited motion of the right shoulder. No ecchymosis or swelling. Results & Data Results & Data Laboratory Results . Diagnostic Findings . Xrays of the right shoulder reviewed as well as the radiology report. She has advanced glenohumeral and ac joint arthritis, hardware from her previous surgery/rotator cuff repair. No fracture. PG Care Time/CCT Total # of Minutes Spent Total Time Spent with Patient: Total time spent is greater than 50% in coordination of care (as documented) at patient's floor/unit and/or counseling patient: Coding Level of Care Code 56257 SUB INP/OBS CARE 06/14MIN Diagnoses Hematoma of right hip, initial encounter S70.01XA Encounter type: initial encounter Arthritis of right shoulder M19.011 (1) Hematoma of right hip Encounter type: initial encounter Qualified Code(s): S70.01XA - Contusion of right hip, initial encounter
[2024-06-20 07:42] LABS: Hematocrit (blood only) 39.8 % (37.0-47.0); Hemoglobin 13.1 g/dl (12.0-16.0); Mean Corpuscular Hgb Conc 32.9 g/dL (32.0-36.0); Mean Corpuscular Volume 88.1 fL (80.0-100.0); Mean Platelet Volume 9.8 fL (9.4-12.4); Platelet Count 248 K/uL (130-400); RDW Coefficient of Variation 16.5 % (11.5-14.5); RDW Standard Deviation 51.8 fL (36.4-46.3); Red Blood Count 4.52 M/uL (4.20-5.40); White Blood Count 4.23 K/ul (4.8-10.8)
[2024-06-20 07:52] LABS: Albumin Globulin Ratio 1.7 (0.9-2); Albumin Level 3.7 gm/dl (3.4-5.0); BUN Creatinine Ratio 34.7 (10-20); Bilirubin,Total 0.7 mg/dl (0.2-1.0); Creatinine Clr Calc Pharmacy 108.4 ml/min; Globulin 2.2 gm/dl (2.5-4.0); Potassium 3.8 mmol/L (3.5-5.1); Total Protein 5.9 gm/dl (6.0-8.3)
--- NOTE | 2024-06-20 08:44 | Cardiology Progress Note ---
Date of Service June 20, 2024 Assessment & Plan (1) Atrial fibrillation with rapid ventricular response: Plan Assessment: 69 year old female presents for evaluation of right hip pain/hematoma after sustaining a fall. Found to be in Atrial fibrillation with RVR Plan: 1. A-fib with RVR -patient with known history of P. A-fib. -Pacemaker interrogation shows that patient has been in persistent atrial fibrillation for at least 3 months and likely longer. She has also had extreme rate elevation upwards of the 200's -Echocardiogram shows mildly reduced EF likely in response to tachycardia, poorly controlled A-fib -Patient has refused rate control medications in the past as well as anticoagulation. Her answer is due to distrust of the pharmaceutical industry. -Explained in detail to the patient that her persistent atrial fibrillation with elevated rates has now led to increase stress on the heart. She is a poor candidate for an elective cardioversion, not only due to refusal for anticoagulation, but her left atrium is severely dilated -Patient currently on Amiodarone gtt with elevated rates. We will discontinue in favor of starting Digoxin. Given digoxin 250mcg IV push x1 dose now, and repeat in 6 hours. Patient will then start digoxin 250mcg PO Daily tomorrow. -CHADS2-VASC score 3 with recommendation for starting anti-coagulation. Continues to decline at this time. Patient verbalizes understanding of risk for a thrombo-embolic event in the setting of atrial fibrillation and is willing to accept those risk at this time. -Blood pressure controlled. -Continue Lopressor 25mg PO R6Pssar at this time. 06/20/2024: -Patient remains in persistent atrial fibrillation, rates improved with use of IV digoxin, will start PO Digoxin today. close monitoring of serum digoxin levels. -Discussed risk again for thromboembolic event in the setting of persistent atrial fibrillation. Patient remains undecided about wishing to proceed with AC therapy. [id number] score 3. -Blood pressure controlled. low normal. Hold parameters have been adjusted on Lopressor to ensure she receives it. Continue Lopressor 25mg PO Q6H at this time. -Reviewed with patient in detail to the patient that her persistent atrial fibrillation with elevated rates has now led to increase stress on the heart. She is a poor candidate for an elective cardioversion, not only due to refusal for anticoagulation, but her left atrium is severely dilated Case has been discussed with Dr. Pham. Further recommendations regarding plan of care as per his assessment. I spent a total of 30 minutes on the date of service in preparation, delivery, documentation of the care provided to the patient excluding any time spent in the performance of separately billed services. RAMOS Awad [facility] Admission and Anticipated Discharge Date Admission Date: June 18, 2024 Supervising Physician Co-Signing Physician Notes I have personally performed a history and physical examination on the patient. I have reviewed the advance practitioner's documentation, and I agree with, and take responsibility for the plan of care. 69-year-old female with persistent atrial fibrillation since February 2024 per pacemaker interrogation. Rapid ventricular response noted on admission. Echocardiogram demonstrating mild LV systolic dysfunction. Amiodarone discontinued in favor of metoprolol plus digoxin 06/19/2024. Heart rate has improved. Patient declines anticoagulation at this time. Successful rhythm control strategy less likely in the setting of severe left atrial enlargement. * Rate control strategy * Continue metoprolol plus digoxin * Recommend initiation of anticoagulation with IV heparin. (Patient declines) * Transition to [facility] at discharge. * Outpatient electrophysiology referral. * Maintain serum potassium greater than 4.0, and magnesium greater than 2.0. I spent a total of 40 minutes on the date of service in preparation, delivery, and documentation of the care provided to this patient, excluding any time spent in the performance of separately billed services. Lefty Pham DO, [facility] Subjective 06/20/2024: Patient seen and examined in follow up today. Feeling well overall. Denies any chest pain, pressure or palpitations. She was provided with a copy of her device interrogation by nursing staff. Patient remains undecided about use of anticoagulation. Discusses risk vs benefit. Labs, vitals, diagnostics, telemetry and documentation reviewed. Telemetry reviewed showing A-fib 80-100, occasional PVC and couplet. Amiodarone gtt was discontinued yesterday in favor of starting Digoxin. Review of Systems Review of Systems: All systems reviewed & are unremarkable except as noted in HPI & below Physical Exam Constitutional: well developed and well nourished; no acute distress and not ill appearing Neck: normal visual inspection and trachea midline Respiratory: normal respiratory effort, lungs clear to auscultation Auscultation: no crackles, no rales, no rhonchi and no wheezes Cardiovascular: Rate/Rhythm: + tachycardic and + irregularly irregular Heart Sounds: normal S1, normal S2 and + murmur (+1/6 systolic) Vessels: dorsalis pedis pulses present; no JVD Extremities: + edema (Trace to +1 BLE edema, wearing compression stockings ) Skin: no rashes, warm and dry + ecchymosis (Right upper leg and hip ) Psychiatric: A+Ox3, euthymic affect Results & Data Vital Signs (Past 12 Hours) Vital Signs Temp Pulse Pulse Resp BP BP Pulse Ox 06/20/24 07:48 36.7 C 87 18 100/60 95 06/20/24 07:00 106 H 06/19/24 22:37 110 H 06/19/24 22:24 36.3 C L 94 H 17 81/54 L 94 O2 Del Method 06/20/24 07:48 Room Air 06/20/24 07:00 06/19/24 22:37 06/19/24 22:24 Nasal Cannula Laboratory Results Cardiac Enzymes 06/20/24 Range/Units 07:09 AST 27 (13-39) U/L CBC 06/20/24 Range/Units 07:09 WBC 4.23 L (4.8-10.8) K/ul RBC 4.52 (4.20-5.40) M/uL Hgb 13.1 (12.0-16.0) g/dl Hct 39.8 (37.0-47.0) % Plt Count 248 (130-400) K/uL Comprehensive Metabolic Panel 06/20/24 Range/Units 07:09 Sodium 141 (136-145) mmol/L Potassium 3.8 (3.5-5.1) mmol/L Chloride 109 H (98-107) mmol/L Carbon Dioxide 28 (21-32) mmol/L BUN 17 (6-23) mg/dl Creatinine 0.49 L (0.6-1.2) mg/dl Glucose 84 (70-99(Fasting)) mg/dl Calcium 9.0 (8.6-10.3) mg/dl AST 27 (13-39) U/L ALT 23 (7-52) U/L Alkaline Phosphatase 62 (34-104) U/L Total Protein 5.9 L (6.0-8.3) gm/dl Albumin 3.7 (3.4-5.0) gm/dl Intake and Output 06/19/24 06/20/24 06/20/24 22:59 06:59 14:59 Intake Total 200 / 1350 700 / 1350 Balance 200 / 800 700 / 800 Intake: IV 200 / 200 Amiodarone / D5w 360 mg In 200 200 / 200 ml @ 0.5 MG/MIN 16.667 mls/hr IV .Q12H [facility] Rx#:[id number] Oral 700 / 1150 Other: Weight 80.9 kg Weight Measurement Method Built in [facility]
[2024-06-20] MEDS: METOPROLOL TARTRATE 25 MG TAB PO STA (10:00)
[2024-06-20] MEDS: GADOBUTROL 65ML VIAL IV ONE (12:51)
--- NOTE | 2024-06-20 13:51 | Magnetic Resonance Report ---
MR shoulder RT wo/w con CLINICAL HISTORY: 69 years-old Female with right shoulder pain/concern for fracture. Acute right cortes ulder pain with prior surgery COMPARISON: Radiograph 06/19/2024 TECHNIQUE: Multiplanar, multi sequence MRI of the right shoulder was performed with and without intra venous contrast. FINDINGS: Motion degraded exam. ROTATOR CUFF Supraspinatus: Marked muscle atrophy. Surgical anchors compatible with prior insertional tendon repai r. Distal insertional tendons are not well visualized secondary to the motion artifact. Large focus o f ill-defined rotator cuff calcific tendinosis measuring up to 2.6 cm transversely image 9 series 7 i nvolves majority of the fibers. Chronic full thickness tearing is noted with 20 retracted fibers exte nding to level the medial third humeral head on image 10 series 6. The dimensions of the tear are ind eterminate based on the limitations as above. There are residual anterior fibers which remain intact. Nonspecific edema within the musculature. Infraspinatus: Moderate tendinosis with chronic anemia grade interstitial tearing of the myotendinous junction. Moderate global muscle atrophy. No acute tear or retraction identified definitively. Nonsp ecific edema within the musculature. Teres Minor: Intact. Subscapularis: No high-grade partial or full-thickness tear. No muscle atrophy or tendon retraction. Moderate tendinosis. BICEPS TENDON: Proximal portions are not well-visualized secondary to the limitations as above. Ther e is moderate tendinosis of the visualized portions. The tendon is displaced 9 mm anterior to the pro ximal humerus on image 23 series 4 which is abnormal and likely chronic. The intra-articular segment and biceps anchor are not well visualized. LABRUM: Degeneration and chronic multifocal tearing. GLENOHUMERAL JOINT: Severe osteoarthritis. Small joint effusion with intra-articular debris/punctate subcentimeter loose bodies. ACROMIOCLAVICULAR JOINT: Severe osteoarthritis. No evidence of os acromiale. Fluid within the subacr omial/subdeltoid bursa is likely secondary to the full thickness supraspinatus tear OUTLET SPACES: The suprascapular notch and quadrilateral space are without obstructing or space occu pying lesions. BONE MARROW: Subcortical cystic changes and marrow edema throughout the glenohumeral and AC joint. N o acute fracture. SOFT TISSUES: There is diffuse subcutaneous and deep tissue edema. Peripheral synovial enhancement a ppears to be within normal limits. No pathologic enhancement identified. IMPRESSION: 1. Motion degraded exam without acute fracture or dislocation identified. 2. Severe glenohumeral and AC joint osteoarthritis. 3. Evidence of prior rotator cuff repair. There is a large focus of calcific tendinosis of the supras pinatus along with chronic full-thickness tendon tear with retraction and atrophy as above. 4. Chronic appearing partial thickness tendon tearing of the infraspinatus. 5. Small joint effusion with intra-articular debris/loose bodies. 6. No abnormal enhancement. ACT 112: Negative or not required by law. The above report was generated using voice recognition software. It may contain grammatical, syntax o r spelling errors. Electronically signed by: Romel Krueger M.D. 06/20/2024 1:50 PM
--- NOTE | 2024-06-20 14:35 | Electrocardiogram Report ---
Test Reason : Blood Pressure : */* mmHG Vent. Rate : 91 BPM Atrial Rate : * BPM P-R Int : * ms QRS Dur : 86 ms QT Int : 402 ms P-R-T Axes : * 19 5 degrees QTcB Int : 494 ms Atrial fibrillation Low voltage QRS Nonspecific T wave abnormality QTcB >= 480 msec Abnormal ECG When compared with ECG of 19-Jun-2024 05:17, No significant change was found Confirmed by Dusty Ramirez ([id number]) on 06/20/2024 2:35:20 PM Referred By: REFERRED SELF Confirmed By: Dusty Ramirez
[2024-06-20] MEDS: DIGOXIN 0.25 MG TAB PO SCH (16:39)
--- NOTE | 2024-06-20 16:46 | Hospitalist Progress Note ---
Date of Service June 20, 2024 Assessment & Plan (1) Hematoma of right hip: Plan: -2/2 mechanical fall one week ago Plan: -appreciate ortho recs -Continue home buprenorphine for pain (2) Atrial fibrillation: Plan: -noted to be in RVR upon admission -s/p amiodarone and metoprolol which controlled rate -has notable severe biatrial enlargement on echo as well -rates better today after dignoxin load, explained to patient at length anatomy and physiology of atrial fibrillation Plan: -cardiology consult, appreciate recs -continue digoxin -hold on anticoagulation at this time given recent large hematoma (3) Hypotension: Plan: -patient has long hx of chronic hypotension -asymptomatic at this time Plan: -monitor BP -start IS (4) Acute chest wall pain: Plan: -appears to likely be costochondritis given reproducible to palpation, negative troponins Plan: -voltaren cream (5) LVH (left ventricular hypertrophy): Plan: -per echo results (6) S/P gastric bypass: Plan: -noted (7) Chronic pain due to trauma: Plan: -past has past hx of chronic pain syndrome with significant opioid use -now on buprenorphine Plan: -continue buprenorphine -if pain uncontrolled will do full agonist therapy prn (8) Right shoulder pain: Plan: -significant pain and loss of ROM in right shoulder post fall -xray without acute findings -MRI shoulder showing significant tendon tear, soft tissue edema, and damage Plan: -appreciate ortho recs -PT/OT placed Plan Feeding/fluids: heart healthy Analgesia: buprenorphine, prn full agonist therapy Sedation: na Thromboprophylaxis: SCDs Head up position: na Ulcer prophylaxis: na Glycemic control: na Spontaneous breathing trial: na Bowel care: start miralax prn Indwelling catheter removal: na Deescalation of antibiotics: stop abx I spent a total of 50 minutes in direct patient care, including [id number] time with the patient and/or family, reviewing medical records, ordering and reviewing diagnostic tests, and coordinating care with other healthcare providers. This time includes: history taking, physical examination, medical decision making, counseling, ECG interpretation, imaging interpretation, lab in terpretation, orders, and education, excluding time spent in the performance of separately billed services. Admission and Anticipated Discharge Date Admission Date: June 18, 2024 Subjective patient seen and examined at bedside. Patient is doing well today. She is pleased with her rate control at this time. Discussed risk and benefits of starting anticoagulation, with a [id number] score of 3 and has bled score of 3 she has about a 5% chance of bleeding per year and about a 5% chance of a stroke per year. Patient is unsure in what to do at this time. This provider expressed given her recent hematoma and fall I would not want to start antico agulation this admission given I feel the risk outweigh the benefits. 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 She agrees with this and would like to wait to start anticoagulation to outpatient. Understands that without anticoagulation there is a higher stroke risk. Review of Systems Review of Systems: CONSTITUTIONAL: right leg pain, weakness EYES: Patient denies any visual symptoms. EARS, NOSE, AND THROAT: No difficulties with hearing. No symptoms of rhinitis or sore throat. CARDIOVASCULAR: reproducible chest pain RESPIRATORY: No dyspnea on exertion, no wheezing or cough. GI: No nausea, vomiting, diarrhea, constipation, abdominal pain, hematochezia or melena. : No urinary hesitancy or dribbling. No nocturia or urinary frequency. No abnormal urethral discharge. MUSCULOSKELETAL: weakness, right shoulder pain/stiffness NEUROLOGIC: No chronic headaches, no seizures. Patient denies numbness, tingling or weakness. PSYCHIATRIC: Patient denies problems with mood disturbance. No problems with anxiety. ENDOCRINE: No excessive urination or excessive thirst. DERMATOLOGIC: Patient denies any rashes or skin changes. Physical Exam Physical Exam: Gen: A&O 3 NAD HEENT: NCAT, EOMI, not icteric. External ears normal. No rhinorrhea. Moist mucous membranes. Neck: Supple, full range of motion, no observable masses, No meningeal sign. Lungs: No Respiratory distress. CV: RRR, no edema. Abdomen: Soft, nondistended, No rebound tenderness. MSK: unable to move right shoulder in abduction more than 30 degrees, any degrees of adduction, 45 degrees in flexion, 20 degrees in extension, no improvement Skin: No rashes, petechiae, lesions. Normal color per patient. Neuro: Normal Gait, Grossly intact. Psych: Appropriate for situation. Results & Data Results & Data Vital Signs (Past 12 Hours) Vital Signs Temp Pulse Pulse Resp BP BP Pulse Ox 06/20/24 16:39 88 06/20/24 15:27 36.6 C 95 H 18 80/61 L 91 06/20/24 13:42 36.6 C 109 H 18 111/57 L 98 06/20/24 11:21 06/20/24 07:48 36.7 C 87 18 100/60 95 06/20/24 07:00 106 H O2 Del Method 06/20/24 16:39 06/20/24 15:27 Room Air 06/20/24 13:42 Room Air 06/20/24 11:21 Room Air 06/20/24 07:48 Room Air 06/20/24 07:00 Laboratory Results - Personally interpreted, digoxin level below therapeutic levels, continues to be tachycardic, continues to have a baseline hypotension, rate control better today Diagnostic Findings - personally interpreted, MRI showing significant shoulder pathology including partial tendon tears and significant soft tissue edema and damage Medications Administered Buprenorphine HCl (Buprenorphine Hcl 8 Mg Subl) 4 mg SL QID [facility] Stop: 07/18/24 18:44 Last Admin: 06/20/24 13:44 Dose: 4 mg Documented By: Admin: 06/20/24 09:59 Dose: 4 mg Documented By: Admin: 06/19/24 20:32 Dose: 4 mg Documented By: Admin: 06/19/24 16:59 Dose: 4 mg Documented By: Admin: 06/19/24 12:40 Dose: 4 mg Documented By: Admin: 06/19/24 09:02 Dose: 4 mg Documented By: Admin: 06/18/24 22:12 Dose: 4 mg Documented By: Admin: 06/18/24 18:44 Dose: 4 mg Documented By: AM Diclofenac Sodium (Diclofenac Sod 1% Gel 100 Gm Tube) 2 gm EXT Q12 [facility]; Protocol Stop: 07/19/24 20:59 Last Admin: 06/20/24 09:58 Dose: 2 gm Documented By: Admin: 06/19/24 22:37 Dose: 2 gm Documented By: AYDEN Digoxin (Digoxin 0.25 Mg Tab) 0.25 mg PO DAILY@1600 [facility] Stop: 07/20/24 15:59 Last Admin: 06/20/24 16:39 Dose: 0.25 mg Documented By: Metoprolol Tartrate (Metoprolol Tartrate 25 Mg Tab) 25 mg PO Q6H [facility] Stop: 07/18/24 19:59 Last Admin: 06/20/24 13:44 Dose: 25 mg Documented By: Admin: 06/20/24 09:59 Dose: 25 mg Documented By: Admin: 06/20/24 04:06 Dose: Not Given Documented By: [facility] Admin: 06/19/24 20:05 Dose: 25 mg Documented By: [facility] Admin: 06/19/24 14:25 Dose: 25 mg Documented By: Admin: 06/19/24 09:03 Dose: 25 mg Documented By: Admin: 06/19/24 01:38 Dose: Not Given Documented By: Admin: 06/18/24 19:57 Dose: Not Given Documented By: UNIQUE Miscellaneous (Order Awaiting Action: Earle Diskus 250/50) 1 each N/A QS [facility] Stop: 07/19/24 00:00 Last Admin: 06/20/24 16:10 Dose: Not Given Documented By: Admin: 06/20/24 09:59 Dose: Not Given Documented By: Admin: 06/20/24 02:07 Dose: Not Given Documented By: Demetri Admin: 06/19/24 14:25 Dose: Not Given Documented By: Admin: 06/19/24 07:35 Dose: Not Given Documented By: Admin: 06/19/24 00:07 Dose: Not Given Documented By: UNIQUE Vitamin D (Cholecalciferol 25 Mcg (1000 Units) Tab) 50 mcg PO DAILY [facility] Stop: 07/19/24 08:59 Last Admin: 06/20/24 10:00 Dose: 50 mcg Documented By: Admin: 06/19/24 09:03 Dose: 50 mcg Documented By: COLTON (1) Hematoma of right hip Encounter type: initial encounter Qualified Code(s): S70.01XA - Contusion of right hip, initial encounter (2) Atrial fibrillation Atrial fibrillation type: paroxysmal Qualified Code(s): I48.0 - Paroxysmal atrial fibrillation (3) Hypotension Hypotension type: idiopathic hypotension Qualified Code(s): I95.0 - Idiopathic hypotension (8) Right shoulder pain Chronicity: acute Qualified Code(s): M25.511 - Pain in right shoulder
[2024-06-21 06:58] LABS: Hematocrit (blood only) 38.1 % (37.0-47.0); Hemoglobin 12.7 g/dl (12.0-16.0); Mean Corpuscular Hemoglobin 28.7 pg (25.0-34.0); Mean Corpuscular Hgb Conc 33.3 g/dL (32.0-36.0); Mean Corpuscular Volume 86.2 fL (80.0-100.0); Mean Platelet Volume 9.7 fL (9.4-12.4); Platelet Count 258 K/uL (130-400); RDW Coefficient of Variation 16.1 % (11.5-14.5); RDW Standard Deviation 49.8 fL (36.4-46.3); Red Blood Count 4.42 M/uL (4.20-5.40); White Blood Count 3.29 K/ul (4.8-10.8)
[2024-06-21 07:21] LABS: Albumin Globulin Ratio 1.8 (0.9-2); Albumin Level 3.5 gm/dl (3.4-5.0); BUN Creatinine Ratio 48.8 (10-20); Bilirubin,Total 0.8 mg/dl (0.2-1.0); Calcium 8.6 mg/dl (8.6-10.3); Creatinine Clr Calc Pharmacy 128.5 ml/min; Potassium 3.8 mmol/L (3.5-5.1); Total Protein 5.5 gm/dl (6.0-8.3)
--- NOTE | 2024-06-21 11:17 | Cardiology Progress Note ---
Date of Service June 21, 2024 Assessment & Plan (1) Atrial fibrillation with rapid ventricular response: Plan: 69-year-old female with persistent atrial fibrillation since February 2024 per pacemaker interrogation. Rapid ventricular response noted on admission. Echocardiogram demonstrating mild LV systolic dysfunction. Amiodarone discontinued in favor of metoprolol plus digoxin 06/19/2024. Heart rate has improved. Patient declines anticoagulation at this time. Intermittently refusing doses of metoprolol. Successful rhythm control strategy less likely in the setting of severe left atrial enlargement. * Rate control strategy * Discontinue metoprolol tartrate in favor of Toprol-XL 50 mg twice daily * Continue digoxin, Outpatient digoxin level in 1 week * Recommend anticoagulation, Eliquis 5 mg twice daily. (Patient declines) * Outpatient electrophysiology referral. * Maintain serum potassium greater than 4.0, and magnesium greater than 2.0. No further inpatient cardiac testing or intervention recommended at this time. Cardiology will sign off. Please call with additional concerns/questions. Lefty Pham DO, [facility] Admission and Anticipated Discharge Date Admission Date: June 18, 2024 Review of Systems Review of Systems: All systems reviewed & are unremarkable except as noted in Subjective Results & Data Vital Signs (Past 12 Hours) Vital Signs Temp Pulse Pulse Resp BP Pulse Ox O2 Del Method 06/21/24 09:00 Room Air 06/21/24 08:13 36.7 C 81 18 98/48 L 95 Room Air 06/21/24 07:50 80 06/21/24 02:55 36.3 C L 84 16 100/64 93 Room Air 06/21/24 01:03 101 H
[2024-06-21 11:33] VITALS: RESP 17; TEMP 98.4; O2SAT 93
[2024-06-21] MEDS: METOPROLOL SUCC 50MG EXT REL TAB PO SCH (11:45)
[2024-06-21 12:03] VITALS: BP 80/61
--- NOTE | 2024-06-21 13:39 | Discharge Summary ---
Discharge Summary Date of Service June 21, 2024 Principal Dx & Hospital Course #1 = Principal Diagnosis (1) Hematoma of right hip: -2/2 mechanical fall one week ago Plan: -appreciate ortho recs -Continue home buprenorphine for pain (2) Atrial fibrillation: -noted to be in RVR upon admission -s/p amiodarone and metoprolol which controlled rate -has notable severe biatrial enlargement on echo as well -rates better today after dignoxin load, explained to patient at length anatomy and physiology of atrial fibrillation Plan: -cardiology consult, appreciate recs -continue digoxin -hold on anticoagulation at this time given recent large hematoma (3) Hypotension: -patient has long hx of chronic hypotension -asymptomatic at this time Plan: -monitor BP (4) Acute chest wall pain: -appears to likely be costochondritis given reproducible to palpation, negative troponins Plan: -voltaren cream (5) LVH (left ventricular hypertrophy): -noted (6) S/P gastric bypass: -noted (7) Chronic pain due to trauma: -past has past hx of chronic pain syndrome with significant opioid use -now on buprenorphine Plan: -continue buprenorphine (8) Right shoulder pain: -significant pain and loss of ROM in right shoulder post fall -xray without acute findings -MRI shoulder showing significant tendon tear, soft tissue edema, and damage Plan: -appreciate ortho recs -PT/OT placed Notes For Next Care Provider Medication Changes From Visit -digoxin, metoprolol Admission HPI Per Admitting Provider The patient is a 69 year old female with a pmh of tachy/sonny syndrome, PM, AF, svt, s/p gastric bypass, lvh, sleep apnea who presents to the ED today with complaints of R sided chest pain and sob x 1 week. She fell about a week ago - mechanical in nature. Reports having new boots on and tripped on the curb. Denies LOC at that time. Had negative trauma work up but was in AF RVR at this time. Left AMA at this time because she did not want to be transferred over to [place] at that time. Reports sob and r chest pain x 1 week that made her come back to the hospital today. Reports chest pain on inspiration and severe sternal pain - tender on exam. Patient reports it hurts to breathe and she is unable to take a deep breath because of pain the right side of her chest. Reports a decrease in appetite. Denies dizziness or palpitations. Patient reports having issues with medications and prefers to get to the root cause of the problem and would prefer to not take medications. She follows with Dr. Thomason outpatient - has declined metoprolol in the past. A/P CT: 1. Soft tissue hematoma lateral to the right hip with no underlying fracture seen. 2. Gallstones without evidence of acute cholecystitis. Mild dilatation of the common bile duct. 3. No other acute findings seen.. Chest CT: Small right pleural effusion. CT number suggests this is fluid rather than hemothorax. Cardiomegaly is present. No definite evidence of acute rib fracture. L1 compression fracture associated with spinal stenosis appears to be unchanged when compared with 2019. CXR: Atelectasis versus early pneumonia in the lung bases. No other acute findings seen. Labs are fairly unremarkable. EKG showed rapid AF in the 160s - SBPs in the 80s/90s Patient was started on amiodarone gtt and will be admitted for further management of rapid AF. Discharge Exam Gen: A&O 3 NAD HEENT: NCAT, EOMI, not icteric. External ears normal. No rhinorrhea. Moist mucous membranes. Neck: Supple, full range of motion, no observable masses, No meningeal sign. Lungs: No Respiratory distress. CV: irregular rhythm, regular rate Abdomen: Soft, nondistended, No rebound tenderness. MSK: unable to move right shoulder in abduction more than 30 degrees, any degrees of adduction, 45 degrees in flexion, 20 degrees in extension, no improvement from prior Skin: No rashes, petechiae, lesions. Normal color per patient. Neuro: Normal Gait, Grossly intact. Psych: Appropriate for situation. Updated Medication List Medication Instructions Recorded Confirmed Type aspirin 81 mg tablet,delayed 81 mg PO QAM 03/19/18 06/18/24 History release (Abhilash Low Dose Aspirin) fluticasone 250 mcg-salmeterol 50 1 inh inhalation BID PRN Shortness 03/19/18 06/18/24 History mcg/dose blistr powdr for Of Breath inhalation (Advair Diskus) crutch #2 ea 12/23/18 02/03/22 Rx dandelion 1 tab PO UD 04/30/19 06/18/24 History hawthorn 1 ea PO UD 04/30/19 06/18/24 History cholecalciferol (vitamin D3) 50 2,000 units PO UD 04/08/21 06/18/24 History mcg (2,000 unit) capsule blood-glucose meter (OneTouch #1 ea 02/08/22 Rx Verio Reflect Meter) blood sugar diagnostic (OneTouch #100 ea 02/10/22 Rx Verio test strips) flash glucose sensor (FreeStyle #2 ea 02/10/22 Rx Afia 2 Sensor kit) lancets 33 gauge (OneTouch Delica #100 ea 02/10/22 Rx Lancets) buprenorphine HCl 8 mg sublingual 4 mg sublingual 06/18/24 History tablet diclofenac sodium 1 % topical gel 2 g EXT Q12 #100 grams 06/21/24 Rx (Voltaren Arthritis Pain) digoxin 250 mcg (0.25 mg) tablet 0.25 mg PO DAILY@1600 #30 tabs 06/21/24 Rx metoprolol succinate 50 mg 50 mg PO BID #60 tabs 06/21/24 Rx tablet,extended release 24 hr Hospital Stay Data Consultations 06/18/24 12:11 ED Decision to Admit Stat 06/18/24 16:19 Consult Cardiology Routine Consult Orthopedic Surgery Routine Diagnostic Imagining Performed 06/18/24 10:16 CT Abd and Pelvis [CT abd pelvis IV con only] Stat CT chest diagnostic w con Stat 06/20/24 14:00 MR shoulder RT wo/w con Urgent Pending Results Patient Have Any Pending Studies at Discharge: No Discharge Instructions Given to Patient (Per Discharging Provider) 1. Please follow up with cardiology and PCP. 2. 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 3. Please take medications as prescribed and do not miss doses. 4. Follow up with ortho for right shoulder recommendations. 5. Follow up digoxin level in 1 week. Total Time Total Time Spent Total Time Spent (In Minutes): I spent a total of 35 minutes in direct patient care, including [id number] time with the patient and/or family, reviewing medical records, ordering and reviewing diagnostic tests, and coordinating care with other healthcare providers. This time includes: history taking, physical examination, medical decision making, counseling, ECG interpretation, imaging interpretation, lab interpretation, orders, and education, excluding time spent in the performance of separately billed services.
[2024-06-21 14:56] VITALS: PULSE 110
--- NOTE | 2024-07-02 16:25 | Coding Query ---
CODING QUERY To promote full compliance with coding requirements relating to patient care, provider participation is requested in all cases of death surveys coder uncertainty. Please assist us with the question(s) below: Coding Question(s): The medical record reflects the following clinical evidence: Clinical Indicators: Presents with CP/SOB. R pleural effusion: Suspected underlying PNA: -possibly secondary to recent fall and injury/inability to take a deep breath -start IV ceftriaxone/doxy for possible PNA - pt would like to avoid oral ab Documented with +JVD, 3+ bilateral edema. BNP 457. Echo shows mildly reduced LV systolic function, EF=45-50%. Risk Factor(s): AF w/RVR, pleural effusion/pneumonia, cardiomyopathy Treatment: CXR, telemetry, echo, weight, I&O Physician's Response(s): __x_ Pneumonia is a valid Dx ___Pneumonia ruled out ___Unable to determine Hi, could you please send me this so I can access the chart? thanks! Thank you Michelle TAMAYO
== END 2024-06-21 15:12 | disposition home or self-care (01) | DRG 308 ==
LOC: ED 09:23 → SUATTDRO 13:36 → 2E 13:36